=== PATIENT | female | born 1960 | race Caucasian/White ===

== ENCOUNTER 2016-07-29 14:12 | Emergency (ER) | payer OTHER ==
[~2016-07-29 14:12] MED LIST: CETIRIZINE HCL10 MG PO; DILANTIN100 MG PO; GLIMEPIRIDE4 MG PO; LEVEMIR FL100 UNIT/M SC; LISINOPRIL10 MG PO; LOVASTATIN40 MG PO; METFORMIN HCL500 MG PO; NEURONTIN100 MG PO; PERCOCET1 TA1 PO; PROTONIX40 MG PO; RISPERDAL1 MG PO; VENLAFAXINE H37.5 M1 PO
--- NOTE | 2016-07-29 15:12 | ED CLINICAL REPORT ---
Clinical Report - Physicians/Mid Levels [facility] [address] [place] [address] 07/29/2016 14:14 Patient: ES POSADA Time Seen: 1438; upon arrival, initial patient contact, initial documentation, patient care assumed. Arrived- By private vehicle. Historian- patient and daughter. HISTORY OF PRESENT ILLNESS Chief Complaint: TENDER AREA. This started about 1 1/2 weeks and is still present and worsening. It is described as painful. It has been located on the vulva. A cause has been identified. (states she dropped an iron bed frame on her vagina). Similar symptoms previously: None. Recent medical care: Not recently seen/assessed. REVIEW OF SYSTEMS No fever, abdominal pain or difficulty with urination. All systems otherwise negative, except as recorded above. PAST HISTORY See nurses notes. PROBLEMS: Chest Pain of GI Origin. Leukocytosis. Hyperlipidemia. Seizure. Seizure Disorder. Diabetes Mellitus. Hypertension. --14:39 Tita Suarez R.N. ADDITIONAL SURGERIES: Cholecystectomy. Knee Surgery. Tonsillectomy. Tubal Ligation. --14:39 Tita Suarez R.N. SOCIAL HISTORY Light tobacco smoker. No alcohol use or drug use. No recent travel. Is a local resident. FAMILY HISTORY Negative. ADDITIONAL NOTES The nursing notes have been reviewed with agreement regarding the chief complaint, HPI, ROS, PMH and patient medications and allergies. PHYSICAL EXAM Vital Signs: 07/29/2016 14:35 BP: 115/58. HR: 97. RR: 18. O2 saturation: 100%. Temp: 98.3 F. Pain level now: 10/10. Have been reviewed as normal and appear to be correct. Appearance: Alert. Oriented X3. No acute distress. (pt very dirty and unkept, feet completely black from dirt and grime). Neck: Neck supple. Respiratory: No respiratory distress. Skin: Skin warm and dry. Abnormal skin color. No rash. Normal skin turgor. Single large abscess with fluctuance, pointing, drainage and cellulitis (L labia majora). Extremities: Normal external inspection. Extremities nontender. Neuro: Oriented X 3. No motor deficit. No sensory deficit. PROGRESS AND PROCEDURES Incision & Drainage of Abscess: The abscess is located in the bartholin's gland (L labia majora). The risks of the procedure, benefits and alternatives were explained. Consent was obtained. Local anesthesia provided using 1% lidocaine. Skin cleansed with Betadine. The abscess was incised with a #11 surgical blade. A large amount of pus was drained. Cavity was irrigated with saline and packed with gauze. Estimated blood loss: 30 mL. ( area of fluctulance already draining in at least 4 different areas, incision made in 2 spots, one directly in labia, no pus return, 2nd incision made near perineum area, large amount of pus return, probed both sites to break up inoculations, swelling immediately went down, packed with 1/4 inch iodoform gauze, pt tolerated procedure well without issues). Course of Care: concerns expressed to pt and daughter about pt's unkept appearance and her constantly grabbing at drainage, getting it on her fingers and in her long fingernails, and then touching everything else, like her face, pt instructed to trim nails back to quick, and go home and clean everything that the pus was on, pt admitted to it getting on her blankets, clothes, and other places daughter pulled me aside to [facility], informing that he mom lives in [facility], and that her feet are that dirty from not walking on any hiking trail, that is from the floor in her house, they are in the middle of moving her into apt because of her current living conditions. Patient and family counseled in person regarding the patient's stable condition and diagnosis. Differential Diagnosis: Other possible considerations: vaginal trauma, bartholin gland cyst, abscess, insect bite/sting, folliculitis, cellulitis. Above considerations are based on history and physical exam. Differential diagnosis was discussed with patient and patient's family. Disposition: Discharged home in good and improved condition (15:11). Condition: good and stable. CLINICAL IMPRESSION Single deep Bartholin's abscess with incision and drainage. INSTRUCTIONS Warnings: GENERAL WARNINGS: Return or contact your physician immediately if your condition worsens or changes unexpectedly, if not improving as expected, or if other problems arise. Specifically return if problem worsens. Prescription Medications: Keflex 500 mg: take 1 capsule orally every 6 hours for 10 days. No refill. [place] 5 mg / 325 mg tablets: take 1 orally every 6 hours as needed for pain. Dispense ten (10). No refill. Motrin 800 mg tablets: take 1 tablet orally every 8 hours as needed for pain. Dispense thirty (30). No refills. Substitution is permissible. Follow-up: Follow up with your doctor in two days as needed and for packing removal. Call for an appointment. Summary of care provided to patient and family. Understanding of the discharge instructions verbalized by patient. (Electronically signed by Shameka Cardenas A.R.N.P. 07/29/2016 15:40)
--- NOTE | 2016-07-29 15:12 | ED ORDER SUMMARY ---
..... Patient: ES POSADA OrderSheet [facility] VisitID: [id number] [address] [place] [address] 55y, F Registration Date/Time: 07/29/2016 ORDER SHEET Weight: 61.2 kg (stated) Allergies: Penicillins, Sulfa Antibiotics, Tylenol-hives GENERAL ORDERS: MEDICATION ORDERS: Ancef IM 1 gm (NOW) (15:10 07/29/2016 Kelleys A.R.N.P.) (Ack 15:29 Elias R.N.) (17:23 Therese R.N.) IV FLUIDS: ORDER SHEET NOTES: [Electronically signed by Shameka CardenasR.N.P. (15:40 07/29/2016)] [Electronically signed by Tita Suarez R.N. (17:29 07/29/2016)] [Electronically locked/signed by Tita Suarez R.N. (17:29 07/29/2016)]
--- NOTE | 2016-07-29 15:12 | ED NURSING NOTES ---
Clinical Report - Nurses [facility] [address] [place] [address] 07/29/2016 14:14 Patient: ES POSADA TRIAGE Triage time 14:35 Jul 29 2016. Acuity: LEVEL 3. 14:41 07/29/16. SEPSIS SCREEN: Sepsis Screen. Negative (no infection suspected/documented). BRIAN COMA SCORE: [place] Coma Scale: 15- eyes open spontaneously (4); best verbal response- oriented x 4 (5); best motor response- obeys commands (6). --14:41 Tita Suarez R.N. 14:35 07/29/16. BP: 115/58 (regular adult cuff) taken on the left arm, while lying. HR: 97. RR: 18 (regular). O2 saturation: 100% on room air. Temp: 98.3 F (oral). Pain level now: 02/02. --14:41 Tita Suarez R.N. Weight: 61.2 kg stated. Height/Length: 62 inches Per Patient. BMI: 24.7. --14:37 Tita Suarez R.N. Medications Allergy pill. Glimepiride Oral (Tablet 2 mg) 1 tablet, BID , last dose . Lisinopril Oral 20 mg, 1/2 tab day . Lovastatin Oral (Tablet 40 mg) 1 tablet, daily. MetFORMIN HCl Oral 1000mg , 2x a day. OxyCODONE HCl Oral 5 mg, 2x a day. Phenytoin Oral 100 mg, 2 in am, 3 in HS . Venlafaxine HCl Oral 75 mg, 3x a day. --14:38 Tita Suarez R.N. Allergies Penicillins. Sulfa Antibiotics. Tylenol-hives . --14:38 Tita Suarez R.N. History Arrived by private vehicle. Historian: patient and family. Accompanied by family. This occurred (bed frame fell on patient, patient has an area of concern next to rectum on left side). Mechanism of injury: a single blow (bed frame). She has had numbness, tingling, and trouble walking. Treatment PRESS WASHER: Ice and (aleve). PAST MEDICAL HX: Diabetes mellitus. Tetanus status: unknown. The patient is post-menopausal. SOCIAL HX: Current every day light tobacco smoker- less than 1/2 a pack per day. No alcohol use or drug use. No infectious disease exposure. ABUSE ASSESSMENT: No report of abuse. --14:41 Tita Suarez R.N. PROBLEMS: Chest Pain of GI Origin. Leukocytosis. Hyperlipidemia. Seizure. Seizure Disorder. Diabetes Mellitus. Hypertension. --14:39 Tita Suarez R.N. ADDITIONAL SURGERIES: Cholecystectomy. Knee Surgery. Tonsillectomy. Tubal Ligation. --14:39 Tita Suarez R.N. Interventions ID band on patient. To treatment room. --14:41 Tita Suarez R.N. PHYSICAL ASSESSMENT Ambulatory to room. GENERAL / NEURO / PSYCH: Oriented X 4. Alert. EXTREMITIES: Capillary refill is less than 2 seconds in the extremities. Extremity pulses are within normal limits. Extremities exhibit normal ROM. SKIN: Skin is warm. ( Patient has redness and swelling left lateral to vagina). --14:43 Tita Suarez R.N. NURSING PROGRESS NOTES The plan of care for this patient has been created. Patient gowned. Reassurance given. Two patient identifiers checked. Call light placed in reach. Bed placed in lowest position. Brakes of bed on. Patient ready for evaluation- chart flagged and SALES AND MARKETING ASSISTANT notified. --14:43 Tita Suarez R.N. ( Physician in room to take care of infection area). --14:43 Tita Suarez R.N. late entry - 14:24 07/29/16. ( Assisted with drainage of wound). --17:24 Tita Suarez R.N. 15:20 07/29/2016 Ancef (CeFAZolin Sodium) IM 1 gm given. Given in the right gluteus abhinav. Allergies verified and confirmed 5 rights. --17:23 Tita Suarez R.N. 15:20 07/29/16. BP: 148/60 (regular adult cuff) taken on the right arm, while standing. HR: 90. RR: 16. O2 saturation: 92% on room air. Temp: 97.8 F (oral). Pain level now: 09/02. --17:25 Tita Suarez R.N. DISPOSITION / DISCHARGE Departure time: 15:27 Jul 29 2016. Condition at departure: improved. No learning barriers present. Discharge instructions provided and reviewed with the patient. Reviewed medication(s) side effects, precautions and dosing information. Prescription(s) given to the patient. Patient verbalized understanding. Written instructions provided in Lao. The patient was discharged by the nurse practitioner. She was discharged home and accompanied by family. She left the Emergency Department ambulatory and via private vehicle. Family member driving. ( Patient has no further questions, she was given pad and panties with paper pants to go home in, her clothes were all covered with wound drainage and blood.). --17:27 Tita Suarez R.N. Locked/Released at 07/29/2016 17:29 by Tita Suarez R.N.
--- NOTE | 2016-07-29 15:12 | ED NURSING NOTES ---
Clinical Report - Nurses [facility] [address] [place] [address] 07/29/2016 14:14 Patient: ES POSADA TRIAGE Triage time 14:35 Jul 29 2016. Acuity: LEVEL 3. 14:41 07/29/16. SEPSIS SCREEN: Sepsis Screen. Negative (no infection suspected/documented). BRIAN COMA SCORE: [place] Coma Scale: 15- eyes open spontaneously (4); best verbal response- oriented x 4 (5); best motor response- obeys commands (6). --14:41 Tita Suarez R.N. 14:35 07/29/16. BP: 115/58 (regular adult cuff) taken on the left arm, while lying. HR: 97. RR: 18 (regular). O2 saturation: 100% on room air. Temp: 98.3 F (oral). Pain level now: 02/02. --14:41 Tita Suarez R.N. Weight: 61.2 kg stated. Height/Length: 62 inches Per Patient. BMI: 24.7. --14:37 Tita Suarez R.N. Medications Allergy pill. Glimepiride Oral (Tablet 2 mg) 1 tablet, BID , last dose . Lisinopril Oral 20 mg, 1/2 tab day . Lovastatin Oral (Tablet 40 mg) 1 tablet, daily. MetFORMIN HCl Oral 1000mg , 2x a day. OxyCODONE HCl Oral 5 mg, 2x a day. Phenytoin Oral 100 mg, 2 in am, 3 in HS . Venlafaxine HCl Oral 75 mg, 3x a day. --14:38 Tita Suarez R.N. Allergies Penicillins. Sulfa Antibiotics. Tylenol-hives . --14:38 Tita Suarez R.N. History Arrived by private vehicle. Historian: patient and family. Accompanied by family. This occurred (bed frame fell on patient, patient has an area of concern next to rectum on left side). Mechanism of injury: a single blow (bed frame). She has had numbness, tingling, and trouble walking. Treatment PAYROLL AND BENEFITS SPECIALIST: Ice and (aleve). PAST MEDICAL HX: Diabetes mellitus. Tetanus status: unknown. The patient is post-menopausal. SOCIAL HX: Current every day light tobacco smoker- less than 1/2 a pack per day. No alcohol use or drug use. No infectious disease exposure. ABUSE ASSESSMENT: No report of abuse. --14:41 Tita Suarez R.N. PROBLEMS: Chest Pain of GI Origin. Leukocytosis. Hyperlipidemia. Seizure. Seizure Disorder. Diabetes Mellitus. Hypertension. --14:39 Tita Suarez R.N. ADDITIONAL SURGERIES: Cholecystectomy. Knee Surgery. Tonsillectomy. Tubal Ligation. --14:39 Tita Suarez R.N. Interventions ID band on patient. To treatment room. --14:41 Tita Suarez R.N. PHYSICAL ASSESSMENT Ambulatory to room. GENERAL / NEURO / PSYCH: Oriented X 4. Alert. EXTREMITIES: Capillary refill is less than 2 seconds in the extremities. Extremity pulses are within normal limits. Extremities exhibit normal ROM. SKIN: Skin is warm. ( Patient has redness and swelling left lateral to vagina). --14:43 Tita Suarez R.N. NURSING PROGRESS NOTES The plan of care for this patient has been created. Patient gowned. Reassurance given. Two patient identifiers checked. Call light placed in reach. Bed placed in lowest position. Brakes of bed on. Patient ready for evaluation- chart flagged and TAFFY PULLER notified. --14:43 Tita Suarez R.N. ( Physician in room to take care of infection area). --14:43 Tita Suarez R.N. late entry - 14:24 07/29/16. ( Assisted with drainage of wound). --17:24 Tita Suarez R.N. 15:20 07/29/2016 Ancef (CeFAZolin Sodium) IM 1 gm given. Given in the right gluteus abhinav. Allergies verified and confirmed 5 rights. --17:23 Tita Suarez R.N. 15:20 07/29/16. BP: 148/60 (regular adult cuff) taken on the right arm, while standing. HR: 90. RR: 16. O2 saturation: 92% on room air. Temp: 97.8 F (oral). Pain level now: 09/02. --17:25 Tita Suarez R.N. DISPOSITION / DISCHARGE Departure time: 15:27 Jul 29 2016. Condition at departure: improved. No learning barriers present. Discharge instructions provided and reviewed with the patient. Reviewed medication(s) side effects, precautions and dosing information. Prescription(s) given to the patient. Patient verbalized understanding. Written instructions provided in Swedish. The patient was discharged by the nurse practitioner. She was discharged home and accompanied by family. She left the Emergency Department ambulatory and via private vehicle. Family member driving. ( Patient has no further questions, she was given pad and panties with paper pants to go home in, her clothes were all covered with wound drainage and blood.). --17:27 Tita Suarez R.N. Locked/Released at 07/29/2016 17:29 by Tita Suarez R.N.
--- NOTE | 2016-07-29 15:12 | ED ORDER SUMMARY ---
..... Patient: ES POSADA OrderSheet [facility] VisitID: [id number] [address] [place] [address] 55y, F Registration Date/Time: 07/29/2016 ORDER SHEET Weight: 61.2 kg (stated) Allergies: Penicillins, Sulfa Antibiotics, Tylenol-hives GENERAL ORDERS: MEDICATION ORDERS: Ancef IM 1 gm (NOW) (15:10 07/29/2016 Kelleys A.R.N.P.) (Ack 15:29 Elias R.N.) (17:23 Therese R.N.) IV FLUIDS: ORDER SHEET NOTES: [Electronically signed by Shameka CardenasR.N.P. (15:40 07/29/2016)] [Electronically signed by Tita Suarez R.N. (17:29 07/29/2016)] [Electronically locked/signed by Tita Suarez R.N. (17:29 07/29/2016)]
--- NOTE | 2016-07-29 15:12 | ED CLINICAL REPORT ---
Clinical Report - Physicians/Mid Levels [facility] [address] [place] [address] 07/29/2016 14:14 Patient: ES POSADA Time Seen: 1438; upon arrival, initial patient contact, initial documentation, patient care assumed. Arrived- By private vehicle. Historian- patient and daughter. HISTORY OF PRESENT ILLNESS Chief Complaint: TENDER AREA. This started about 1 1/2 weeks and is still present and worsening. It is described as painful. It has been located on the vulva. A cause has been identified. (states she dropped an iron bed frame on her vagina). Similar symptoms previously: None. Recent medical care: Not recently seen/assessed. REVIEW OF SYSTEMS No fever, abdominal pain or difficulty with urination. All systems otherwise negative, except as recorded above. PAST HISTORY See nurses notes. PROBLEMS: Chest Pain of GI Origin. Leukocytosis. Hyperlipidemia. Seizure. Seizure Disorder. Diabetes Mellitus. Hypertension. --14:39 Tita Suarez R.N. ADDITIONAL SURGERIES: Cholecystectomy. Knee Surgery. Tonsillectomy. Tubal Ligation. --14:39 Tita Suarez R.N. SOCIAL HISTORY Light tobacco smoker. No alcohol use or drug use. No recent travel. Is a local resident. FAMILY HISTORY Negative. ADDITIONAL NOTES The nursing notes have been reviewed with agreement regarding the chief complaint, HPI, ROS, PMH and patient medications and allergies. PHYSICAL EXAM Vital Signs: 07/29/2016 14:35 BP: 115/58. HR: 97. RR: 18. O2 saturation: 100%. Temp: 98.3 F. Pain level now: 10/10. Have been reviewed as normal and appear to be correct. Appearance: Alert. Oriented X3. No acute distress. (pt very dirty and unkept, feet completely black from dirt and grime). Neck: Neck supple. Respiratory: No respiratory distress. Skin: Skin warm and dry. Abnormal skin color. No rash. Normal skin turgor. Single large abscess with fluctuance, pointing, drainage and cellulitis (L labia majora). Extremities: Normal external inspection. Extremities nontender. Neuro: Oriented X 3. No motor deficit. No sensory deficit. PROGRESS AND PROCEDURES Incision & Drainage of Abscess: The abscess is located in the bartholin's gland (L labia majora). The risks of the procedure, benefits and alternatives were explained. Consent was obtained. Local anesthesia provided using 1% lidocaine. Skin cleansed with Betadine. The abscess was incised with a #11 surgical blade. A large amount of pus was drained. Cavity was irrigated with saline and packed with gauze. Estimated blood loss: 30 mL. ( area of fluctulance already draining in at least 4 different areas, incision made in 2 spots, one directly in labia, no pus return, 2nd incision made near perineum area, large amount of pus return, probed both sites to break up inoculations, swelling immediately went down, packed with 1/4 inch iodoform gauze, pt tolerated procedure well without issues). Course of Care: concerns expressed to pt and daughter about pt's unkept appearance and her constantly grabbing at drainage, getting it on her fingers and in her long fingernails, and then touching everything else, like her face, pt instructed to trim nails back to quick, and go home and clean everything that the pus was on, pt admitted to it getting on her blankets, clothes, and other places daughter pulled me aside to [facility], informing that he mom lives in [facility], and that her feet are that dirty from not walking on any hiking trail, that is from the floor in her house, they are in the middle of moving her into apt because of her current living conditions. Patient and family counseled in person regarding the patient's stable condition and diagnosis. Differential Diagnosis: Other possible considerations: vaginal trauma, bartholin gland cyst, abscess, insect bite/sting, folliculitis, cellulitis. Above considerations are based on history and physical exam. Differential diagnosis was discussed with patient and patient's family. Disposition: Discharged home in good and improved condition (15:11). Condition: good and stable. CLINICAL IMPRESSION Single deep Bartholin's abscess with incision and drainage. INSTRUCTIONS Warnings: GENERAL WARNINGS: Return or contact your physician immediately if your condition worsens or changes unexpectedly, if not improving as expected, or if other problems arise. Specifically return if problem worsens. Prescription Medications: Keflex 500 mg: take 1 capsule orally every 6 hours for 10 days. No refill. [place] 5 mg / 325 mg tablets: take 1 orally every 6 hours as needed for pain. Dispense ten (10). No refill. Motrin 800 mg tablets: take 1 tablet orally every 8 hours as needed for pain. Dispense thirty (30). No refills. Substitution is permissible. Follow-up: Follow up with your doctor in two days as needed and for packing removal. Call for an appointment. Summary of care provided to patient and family. Understanding of the discharge instructions verbalized by patient. (Electronically signed by Shameka Cardenas A.R.N.P. 07/29/2016 15:40)
--- NOTE | 2016-07-29 17:29 | ED MAR SUMMARY ---
..... Medication Administration Record [facility] [address] [place] [address] Patient: ES POSADA Visit ID: [id number] 55y, F Weight: 61.2 kg Height/Length: 62 in BMI: 24.7 ALLERGIES: Penicillins, Sulfa Antibiotics, Tylenol-hives Given 15:20 07/29/2016 Tita Suarez R.N. Medication Administered: ANCEF [IM] (CEFAZOLIN SODIUM), Dose: 1 gm IM. Medication Ordered: Ancef IM 1 gm (NOW).
--- NOTE | 2016-07-29 17:29 | ED MAR SUMMARY ---
..... Medication Administration Record [facility] [address] [place] [address] Patient: ES POSADA Visit ID: [id number] 55y, F Weight: 61.2 kg Height/Length: 62 in BMI: 24.7 ALLERGIES: Penicillins, Sulfa Antibiotics, Tylenol-hives Given 15:20 07/29/2016 Tita Suarez R.N. Medication Administered: ANCEF [IM] (CEFAZOLIN SODIUM), Dose: 1 gm IM. Medication Ordered: Ancef IM 1 gm (NOW).
--- NOTE | 2016-07-29 17:29 | ED MED RECONCILIATION SUMMARY ---
Patient: ES POSADA Medication Reconciliation Report [facility] VisitID: [id number] [place] [address] 55y, F Registration Date/Time: 07/29/2016 Weight: 61.2 kg Height/Length: 62 in. BMI: 24.7 ALLERGIES: Penicillins, Sulfa Antibiotics, Tylenol-hives The patient's Home Medications are listed below: THE FOLLOWING MEDICATIONS NEED TO BE RECONCILED: Allergy pill Glimepiride Oral (2 mg) 1 tablet, BID , last dose: Lisinopril Oral 20 mg, 1/2 tab day Lovastatin Oral (40 mg) 1 tablet, daily MetFORMIN HCl Oral 1000mg , 2x a day OxyCODONE HCl Oral 5 mg, 2x a day Phenytoin Oral 100 mg, 2 in am, 3 in HS Venlafaxine HCl Oral 75 mg, 3x a day The source(s) of the original Home Medication information: Not obtained. The following Medications were given to the patient in the Emergency Department: Ancef [IM] IM 1 gm, administered: 07/29/2016 3:20:00 PM The following Medications were prescribed to the patient: Keflex 500 mg: take 1 capsule orally every 6 hours for 10 days. No refill. -- Shameka Cardenas A.R.N.P. [place] 5 mg / 325 mg tablets: take 1 orally every 6 hours as needed for pain. Dispense ten (10). No refill. -- Shameka Cardenas A.R.N.P. Motrin 800 mg tablets: take 1 tablet orally every 8 hours as needed for pain. Dispense thirty (30). No refills. Substitution is permissible. -- Shameka Cardenas A.R.N.P.
--- NOTE | 2016-07-29 17:29 | ED MED RECONCILIATION SUMMARY ---
Patient: ES POSADA Medication Reconciliation Report [facility] VisitID: [id number] [place] [address] 55y, F Registration Date/Time: 07/29/2016 Weight: 61.2 kg Height/Length: 62 in. BMI: 24.7 ALLERGIES: Penicillins, Sulfa Antibiotics, Tylenol-hives The patient's Home Medications are listed below: THE FOLLOWING MEDICATIONS NEED TO BE RECONCILED: Allergy pill Glimepiride Oral (2 mg) 1 tablet, BID , last dose: Lisinopril Oral 20 mg, 1/2 tab day Lovastatin Oral (40 mg) 1 tablet, daily MetFORMIN HCl Oral 1000mg , 2x a day OxyCODONE HCl Oral 5 mg, 2x a day Phenytoin Oral 100 mg, 2 in am, 3 in HS Venlafaxine HCl Oral 75 mg, 3x a day The source(s) of the original Home Medication information: Not obtained. The following Medications were given to the patient in the Emergency Department: Ancef [IM] IM 1 gm, administered: 07/29/2016 3:20:00 PM The following Medications were prescribed to the patient: Keflex 500 mg: take 1 capsule orally every 6 hours for 10 days. No refill. -- Shameka Cardenas A.R.N.P. [place] 5 mg / 325 mg tablets: take 1 orally every 6 hours as needed for pain. Dispense ten (10). No refill. -- Shameka Cardenas A.R.N.P. Motrin 800 mg tablets: take 1 tablet orally every 8 hours as needed for pain. Dispense thirty (30). No refills. Substitution is permissible. -- Shameka Cardenas A.R.N.P.
--- NOTE | 2016-07-29 17:29 | ED DISCHARGE INSTRUCTIONS ---
Patient: ES POSADA General Instructions [facility] VisitID: [id number] [place] [address] 55y, F Registration Date/Time: 07/29/2016 Single deep Bartholin's abscess with incision and drainage. INSTRUCTIONS Warnings: GENERAL WARNINGS: Return or contact your physician immediately if your condition worsens or changes unexpectedly, if not improving as expected, or if other problems arise. Specifically return if problem worsens. Prescription Medications: Keflex 500 mg: take 1 capsule orally every 6 hours for 10 days. No refill. Dingle 5 mg / 325 mg tablets: take 1 orally every 6 hours as needed for pain. Dispense ten (10). No refill. Motrin 800 mg tablets: take 1 tablet orally every 8 hours as needed for pain. Dispense thirty (30). No refills. Substitution is permissible. Follow-up: Follow up with your doctor in two days as needed and for packing removal. Call for an appointment. Summary of care provided to patient and family. Understanding of the discharge instructions verbalized by patient. ADDITIONAL INFORMATION Abscess [Incision & Drainage] An abscess (sometimes called a boil) occurs when bacteria get trapped under the skin and begin to grow. Pus forms inside the abscess as the body responds to the bacteria. An abscess can occur with an insect bite, ingrown hair, blocked oil gland, pimple, cyst, or puncture wound. Treatment of your abscess has required an incision to drain the pus. If the abscess pocket was large, a gauze packing may have been inserted. This will need to be removed and possibly replaced on your next visit. Antibiotics are not required in the treatment of a simple abscess, unless the infection is spreading into the skin around the wound (known as cellulitis). Healing of the wound will take about one to two weeks depending on the size of the abscess. Healthy tissue will grow from the bottom and sides of the opening until it seals over. Home Care: The wound may drain for the first two days. Cover the wound with a clean dry dressing. If the dressing becomes soaked with blood or pus, change it. If a gauze packing was placed inside the abscess cavity, you may be advised to remove it yourself. You may do this in the shower. Once the packing is removed, you should wash the area in the shower or bath 3 to 4 times a day, until the skin opening has closed. If you were prescribed antibiotics, take them as directed until they are all gone. You may use acetaminophen (Tylenol) or ibuprofen (Motrin, Advil) to control pain, unless another pain medicine was prescribed. [ NOTE: If you have liver disease or ever had a stomach ulcer, talk with your doctor before using these medicines.] Follow Up with your doctor as advised by our staff. If a gauze packing was inserted in your wound, it should be removed in 1-2 days. Check your wound every day for the signs of worsening infection listed below. Get Prompt Medical Attention if any of the following occur: Increasing redness or swelling Red streaks in the skin leading away from the wound Increasing local pain or swelling Continued pus draining from the wound two days after treatment Fever of 100.4F (38C) or higher, or as directed by your healthcare provider Cellulitis You have an infection of the skin known as cellulitis. This usually starts with a scrape, cut, insect bite, blister or other opening in the skin which becomes infected. This is a serious condition. It must be watched closely to be sure the infection is not spreading. With antibiotic treatment, the size of the red area will gradually shrink in size until the skin returns to normal. This will take 7-10 days. The red area should never increase in size once the antibiotic medicine has been started. Occasionally, an infection will be resistant to one antibiotic and another one will have to be used. Home Care: 1) Limit the use of the affected part, since excess movement can cause the infection to spread. 2) If the infection is on your leg, walk as little as possible during the first few days of the treatment. Keep your leg elevated while sitting. This will reduce swelling. 3) Take all of the antibiotic medicine exactly as directed until it is gone. Be careful not to miss any doses, especially during the first seven days. Follow Up with your doctor or this facility as directed. Check the infected area daily for the warning signs listed below. Get Prompt Medical Attention if any of the following occur: -- Spreading area of redness -- Increasing swelling or pain -- Appearance of pus or drainage -- Fever over 100.4 F (38.0 C) oral, or over 101.4 F (38.6 C) rectal, after two days on antibiotics Bartholin's Cyst [I&D] The Bartholin's glands are very small glands found inside the labia (vaginal lips). The glands produce fluid to help keep the vagina moist. When the opening of a Bartholins gland becomes blocked, the gland will swell and form a cyst. A cyst feels like a firm lump within the labia, from to 2 in size. It is usually not painful, unless it becomes infected. There are two common methods for draining the fluid and preventing return of the cyst: -- A small rubber tube (Word catheter) may have been inserted into the cyst. This will probably fall out on its own, or can be removed by your doctor in 2-3 weeks. -- A stitch may be used to hold the incision open and prevent it from healing closed too soon. Most infections of Bartholins cysts are due to bacteria that are normally present in the vagina. But, sometimes a sexually transmitted disease (STD) such as Gonorrhea can cause the infection. A culture test of the fluid can determine this. Home Care: 1) Sit in a tub filled with about 6 inches of very hot water. Allow the water to run in order to keep it hot for a total of 10-15 minutes. Repeat this three times a day until pain is relieved. 2) You may use acetaminophen (Tylenol) or ibuprofen (Motrin, Advil) to control pain, unless another medicine was prescribed. [ NOTE : If you have chronic liver or kidney disease or ever had a stomach ulcer or GI bleeding, talk with your doctor before using these medicines.] 3) Avoid sexual intercourse until all of the swelling and pain is gone, any tubes or stitches have been removed, and you have finished any antibiotics that were given. 4) If the cause of your infection is found to be due to an STD, it will be necessary for your sexual partner to be treated. He should contact his own doctor or clinic, or go to the local Public Health Department. Follow Up with your doctor or as advised by our staff. If a culture test was taken, you may call in two days for the result. If a rubber catheter was inserted and it falls out before your appointment to have it removed, call us or your doctor for advice. Get Prompt Medical Attention if any of the following occur: -- Increasing redness, pain or swelling of the labia -- Fever over 100.5' F (38.0' C) after two days of treatment -- Increasing pain in the lower abdomen -- New rash or joint pain Staph Infection (MRSA) "Staph" is the short name for the common bacteria called "staphylococcus aureus". Staph bacteria are often present on the skin without causing an infection. If it gets under the skin an infection occurs. This causes redness, tenderness, swelling and sometimes fluid drainage. MRSA stands for "Methicillin-Resistant Staph Aureus". Unlike a common staph infection, MRSA bacteria are resistant to the usual antibiotics and harder to treat. Also, MRSA is more toxic than common staph bacteria. It can spread quickly throughout the body and cause a life-threatening illness. MRSA is spread to others by direct physical contact with the bacteria. MRSA can also be transmitted from items contaminated by a person who has the bacteria, such as bandages, towels, bed sheets, or sports equipment. It is not spread through the air. Once you have a MRSA skin infection, you are at risk of having it recur in the future. If MRSA infection is suspected, the doctor may take a wound culture to confirm the diagnosis. Any abscess will be drained. One or sometimes two antibiotics that work against MRSA will be prescribed. Home Care: 1) Take any antibiotics prescribed exactly as directed until they are gone. 2) Follow the same washing procedures as outlined for Household Members below. 3) Keep draining wounds covered with clean, dry bandages. Change dressings as they become soiled. 4) You and those in contact with you should wash their hands frequently with soap and warm water or use an alcohol-based hand maintainability engineer. Do this after each time you change the bandage or touch the wound. 5) Avoid sharing personal items such as towels, washcloths, razors, clothing, or uniforms. Wash soiled sheets, towels or clothes in hot water with laundry detergent. Use an automatic clothes dryer set on high to kill any remaining bacteria. 6) Remove any artificial nails and nail croatian. 7) If you use a gym, wipe down equipment before and after each use. Treatment Of Household Members If you have been diagnosed with possible MRSA infection, those living with you are at higher risk of carrying the bacteria on their skin or in their nose, even if there is no sign of infection. Bacteria must be removed from the skin of all household members (including you) at the same time, so that it is not passed back and forth. Advise them to remove the bacteria as follows: Wash your whole body (scalp to toes) daily for five days with Hibiclens (chlorhexidine). Scrub fingernails with a brush for one minute twice a day. If any skin infections are present (boils, abscess, infected cut) these must be treated by a doctor. Washing alone will not treat a MRSA infection. Clean counter tops and children's toys; do not share personal items such as toothbrush and razors. It is okay to share glasses, plates, utensils. If antibiotic ointment was prescribed use it as directed. Follow Up with your doctor or as advised by our staff. If a wound culture was taken, call as directed in two days to obtain the results. If the culture result is positive for MRSA, tell medical personnel in the future that you were treated for this type of infection. Get Prompt Medical Attention if any of the following occur: -- Increasing redness, swelling or pain -- Red streaks in the skin around the wound -- Weakness or dizziness -- New appearance of pus or drainage from the wound -- New fever over 100.4 F (38.0 C) Cephalexin Monohydrate Oral tablet What is this medicine? CEPHALEXIN (sef a FROY in) is a cephalosporin antibiotic. It is used to treat certain kinds of bacterial infections It will not work for colds, flu, or other viral infections. How should I use this medicine? Take this medicine by mouth with a full glass of water. Follow the directions on the prescription label. This medicine can be taken with or without food. Take your medicine at regular intervals. Do not take your medicine more often than directed. Take all of your medicine as directed even if you think you are better. Do not skip doses or stop your medicine early. Talk to your landscape horticulture instructor regarding the use of this medicine in children. While this drug may be prescribed for selected conditions, precautions do apply. What side effects may I notice from receiving this medicine? Side effects that you should report to your doctor or health personal care assistant as soon as possible: allergic reactions like skin rash, itching or hives, swelling of the face, lips, or tongue breathing problems pain or trouble passing urine redness, blistering, peeling or loosening of the skin, including inside the mouth severe or watery diarrhea unusually weak or tired yellowing of the eyes, skin Side effects that usually do not require medical attention (report to your doctor or health personal care assistant if they continue or are bothersome): gas or heartburn genital or anal irritation headache joint or muscle pain nausea, vomiting What may interact with this medicine? probenecid some other antibiotics What if I miss a dose? If you miss a dose, take it as soon as you can. If it is almost time for your next dose, take only that dose. Do not take double or extra doses. There should be at least 4 to 6 hours between doses. Where should I keep my medicine? Keep out of the reach of children. Store at room temperature between 59 and 86 degrees F (15 and 30 degrees C). Throw away any unused medicine after the expiration date. What should I tell my health care provider before I take this medicine? They need to know if you have any of these conditions: kidney disease stomach or intestine problems, especially colitis an unusual or allergic reaction to cephalexin, other cephalosporins, penicillins, other antibiotics, medicines, foods, dyes or preservatives or trying to get breast-feeding What should I watch for while using this medicine? Tell your doctor or health personal care assistant if your symptoms do not begin to improve in a few days. Do not treat diarrhea with over the counter products. Contact your doctor if you have diarrhea that lasts more than 2 days or if it is severe and watery. If you have diabetes, you may get a false-positive result for sugar in your urine. Check with your doctor or health personal care assistant. Hydrocodone Bitartrate, Acetaminophen Oral tablet What is this medicine? ACETAMINOPHEN; HYDROCODONE (a set a STEFFANY francine fen; titus droe KOE done) is a pain reliever. It is used to treat mild to moderate pain. How should I use this medicine? Take this medicine by mouth. Swallow it with a full glass of water. Follow the directions on the prescription label. If the medicine upsets your stomach, take the medicine with food or milk. Do not take more than you are told to take. Talk to your landscape horticulture instructor regarding the use of this medicine in children. This medicine is not approved for use in children. What side effects may I notice from receiving this medicine? Side effects that you should report to your doctor or health personal care assistant as soon as possible: allergic reactions like skin rash, itching or hives, swelling of the face, lips, or tongue breathing problems confusion feeling faint or lightheaded, falls stomach pain yellowing of the eyes or skin Side effects that usually do not require medical attention (report to your doctor or health personal care assistant if they continue or are bothersome): nausea, vomiting stomach upset What may interact with this medicine? alcohol antihistamines isoniazid medicines for depression, anxiety, or psychotic disturbances medicines for sleep muscle relaxants naltrexone narcotic medicines (opiates) for pain phenobarbital ritonavir tramadol What if I miss a dose? If you miss a dose, take it as soon as you can. If it is almost time for your next dose, take only that dose. Do not take double or extra doses. Where should I keep my medicine? Keep out of the reach of children. This medicine can be abused. Keep your medicine in a safe place to protect it from theft. Do not share this medicine with anyone. Selling or giving away this medicine is dangerous and against the law. Store at room temperature between 15 and 30 degrees C (59 and 86 degrees F). Protect from light. Keep container tightly closed. Throw away any unused medicine after the expiration date. Discard unused medicine and used packaging carefully. Pets and children can be harmed if they find used or lost packages. What should I tell my health care provider before I take this medicine? They need to know if you have any of these conditions: brain tumor Crohn's disease, inflammatory bowel disease, or ulcerative colitis drink more than 3 alcohol-containing drinks per day drug abuse or addiction head injury heart or circulation problems kidney disease or problems going to the bathroom liver disease lung disease, asthma, or breathing problems an unusual or allergic reaction to acetaminophen, hydrocodone, other opioid analgesics, other medicines, foods, dyes, or preservatives or trying to get breast-feeding What should I watch for while using this medicine? Tell your doctor or health personal care assistant if your pain does not go away, if it gets worse, or if you have new or a different type of pain. You may develop tolerance to the medicine. Tolerance means that you will need a higher dose of the medicine for pain relief. Tolerance is normal and is expected if you take the medicine for a long time. Do not suddenly stop taking your medicine because you may develop a severe reaction. Your body becomes used to the medicine. This does NOT mean you are addicted. Addiction is a behavior related to getting and using a drug for a non-medical reason. If you have pain, you have a medical reason to take pain medicine. Your doctor will tell you how much medicine to take. If your doctor wants you to stop the medicine, the dose will be slowly lowered over time to avoid any side effects. You may get drowsy or dizzy when you first start taking the medicine or change doses. Do not drive, use machinery, or do anything that may be dangerous until you know how the medicine affects you. Stand or sit up slowly. There are different types of narcotic medicines (opiates) for pain. If you take more than one type at the same time, you may have more side effects. Give your health care provider a list of all medicines you use. Your doctor will tell you how much medicine to take. Do not take more medicine than directed. Call emergency for help if you have problems breathing. The medicine will cause constipation. Try to have a bowel movement at least every 2 to 3 days. If you do not have a bowel movement for 3 days, call your doctor or health personal care assistant. Too much acetaminophen can be very dangerous. Do not take Tylenol (acetaminophen) or medicines that contain acetaminophen with this medicine. Many non-prescription medicines contain acetaminophen. Always read the labels carefully. Ibuprofen Oral tablet What is this medicine? IBUPROFEN (eye BYOO proe fen) is a non-steroidal anti-inflammatory drug (NSAID). It is used for dental pain, fever, headaches or migraines, osteoarthritis, rheumatoid arthritis, or painful monthly periods. It can also relieve minor aches and pains caused by a cold, flu, or sore throat. How should I use this medicine? Take this medicine by mouth with a glass of water. Follow the directions on the prescription label. Take this medicine with food if your stomach gets upset. Try to not lie down for at least 10 minutes after you take the medicine. Take your medicine at regular intervals. Do not take your medicine more often than directed. A special MedGuide will be given to you by the pharmacist with each prescription and refill. Be sure to read this information carefully each time. Talk to your landscape horticulture instructor regarding the use of this medicine in children. Special care may be needed. What side effects may I notice from receiving this medicine? Side effects that you should report to your doctor or health personal care assistant as soon as possible: allergic reactions like skin rash, itching or hives, swelling of the face, lips, or tongue black or bloody stools, blood in the urine or in vomit breathing problems changes in vision chest pain general ill feeling or flu-like symptoms nausea or vomiting redness, blistering, peeling or loosening of the skin, including inside the mouth slurred speech or weakness on one side of the body stomach pain unexplained weight gain or swelling unusually weak or tired yellowing of eyes or skin Side effects that usually do not require medical attention (report to your doctor or health personal care assistant if they continue or are bothersome): constipation or diarrhea dizziness gas or heartburn stomach upset What may interact with this medicine? Do not take this medicine with any of the following medications: cidofovir ketorolac methotrexate pemetrexed This medicine may also interact with the following medications: alcohol aspirin diuretics lithium other drugs for inflammation like prednisone warfarin What if I miss a dose? If you miss a dose, take it as soon as you can. If it is almost time for your next dose, take only that dose. Do not take double or extra doses. Where should I keep my medicine? Keep out of the reach of children. Store at room temperature between 15 and 30 degrees C (59 and 86 degrees F). Keep container tightly closed. Throw away any unused medicine after the expiration date. What should I tell my health care provider before I take this medicine? They need to know if you have any of these conditions: asthma cigarette smoker drink more than 3 alcohol containing drinks a day heart disease or circulation problems such as heart failure or leg edema (fluid retention) high blood pressure kidney disease liver disease stomach bleeding or ulcers an unusual or allergic reaction to ibuprofen, aspirin, other NSAIDS, other medicines, foods, dyes, or preservatives or trying to get breast-feeding What should I watch for while using this medicine? Tell your doctor or healthcare professional if your symptoms do not start to get better or if they get worse. This medicine does not prevent heart attack or stroke. In fact, this medicine may increase the chance of a heart attack or stroke. The chance may increase with longer use of this medicine and in people who have heart disease. If you take aspirin to prevent heart attack or stroke, talk with your doctor or health personal care assistant. Do not take other medicines that contain aspirin, ibuprofen, or naproxen with this medicine. Side effects such as stomach upset, nausea, or ulcers may be more likely to occur. Many medicines available without a prescription should not be taken with this medicine. This medicine can cause ulcers and bleeding in the stomach and intestines at any time during treatment. Ulcers and bleeding can happen without warning symptoms and can cause . To reduce your risk, do not smoke cigarettes or drink alcohol while you are taking this medicine. You may get drowsy or dizzy. Do not drive, use machinery, or do anything that needs mental alertness until you know how this medicine affects you. Do not stand or sit up quickly, especially if you are an older patient. This reduces the risk of dizzy or fainting spells. This medicine can cause you to bleed more easily. Try to avoid damage to your teeth and gums when you brush or floss your teeth. You have been given the following additional information: Abscess, Incision And Drainage Cellulitis Bartholin's Cyst (I And D) MRSA Skin Infection, Suspected Or Confirmed Cephalexin Monohydrate Oral tablet Hydrocodone Bitartrate, Acetaminophen Oral tablet Ibuprofen Oral tablet (Electronically signed by Shameka Cardenas A.R.N.P. 07/29/2016 15:40)
== END 2016-07-29 15:27 | disposition home or self-care (01) ==
LOC: ED SRH 14:12
DX: N75.1 Abscess of Bartholin's gland (principal); W20.8XXA Other cause of strike by thrown, projected or falling object, initial encounter; E11.9 Type 2 diabetes mellitus without complications; I10 Essential (primary) hypertension; E78.5 Hyperlipidemia, unspecified; Z79.84 Long term (current) use of oral hypoglycemic drugs; Z79.899 Other long term (current) drug therapy

== ENCOUNTER 2016-08-02 11:53 | Emergency (ER) | payer OTHER ==
--- NOTE | 2016-08-02 12:45 | ED CLINICAL REPORT ---
Clinical Report - Physicians/Mid Levels [facility] [address] [place] [address] 08/02/2016 11:53 [id number] Time Seen: 12:20 Aug 02 2016. Arrived- By private vehicle. Historian- patient. 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 The symptoms are described as moderate. The patient has had pelvic pain. (Patient reports some improvement, has been doing daily sitz bath, as well as taking her antibiotics. Reports drainage from the wound.). Recent medical care: The patient was seen recently by a health care provider (on the for I/D). REVIEW OF SYSTEMS No nausea or diarrhea. All systems otherwise negative, except as recorded above. PAST HISTORY Problems: Abscess. Abdominal Pain. Vomiting. Chest Pain of GI Origin. Leukocytosis. Hyperlipidemia. Seizure. Seizure Disorder. Diabetes Mellitus. Hypertension. Additional Surgeries: Cholecystectomy. Knee Surgery. Tonsillectomy. Tubal Ligation. Medications: Keflex Oral. Allergy pill. Glimepiride Oral (Tablet 2 mg) 1 tablet, BID , last dose . Lisinopril Oral 20 mg, 1/2 tab day . Lovastatin Oral (Tablet 40 mg) 1 tablet, daily. MetFORMIN HCl Oral 1000mg , 2x a day. Phenytoin Oral 100 mg, 2 in am, 3 in HS . Venlafaxine HCl Oral 75 mg, 3x a day. Allergies: Penicillins. Sulfa Antibiotics. Tylenol-hives . ADDITIONAL NOTES The nursing notes have been reviewed. PHYSICAL EXAM Vital Signs: 08/02/2016 12:24 BP: 114/58. HR: 95. RR: 20. O2 saturation: 94%. Temp: 97.5 F. Pain level now: 7/10. Appearance: Alert. ENT: Pharynx normal. Neck: Neck supple. CVS: Heart sounds normal. Abdomen: Soft and nontender. Bowel sounds normal. No abdominal tenderness. : (external left exam with tech chaparone: 2-3 area of open drainage, purulent, no erythema of underlying skin, hair bunches out of the area of opening of abscess, purulent with no surrouding skin erythema.). Skin: Skin warm. PROGRESS AND PROCEDURES Course of Care: External exam was completed, with ingrown hair in multiple area and areas of incision coinciding to such, with purulent drainage, but no visible packing. Areas were explored, with digits as well as manual palpation, and material expressed. Patient tolerated this well. She is stable. Afebrile, to continue using of Keflex. No new palpable abscess or mass. 08/02/2016 12:53 BP: 111/53. HR: 84. RR: 20. O2 saturation: 93%. Pain level now: 5/10. Patient is stable. Patient/family counseled. Disposition: Discharged. CLINICAL IMPRESSION Multiple abscesses (follow up visit). INSTRUCTIONS (warm packs/ sitz bath/ continue KEFLEX follow up with PCP or MARKETING TEACHER in 3-4 days). Warnings: Further evaluation is necessary. (Electronically signed by Qing Lopez P.A.-C 08/02/2016 13:07)
--- NOTE | 2016-08-02 12:45 | ED NURSING NOTES ---
Clinical Report - Nurses [facility] [address] [place] [address] 08/02/2016 11:53 Patient: ES POSADA TRIAGE Triage time 12:Aug 02 2016. Acuity: LEVEL 4. Chief Complaint: BOIL. Alert. No acute distress. BRIAN COMA SCORE: [place] Coma Scale: 15- eyes open spontaneously (4); best verbal response- oriented x 4 (5); best motor response- obeys commands (6). --12:29 Irma Sheldon R.N. 12:24 08/02/16. BP: 114/58. HR: 95. RR: 20. O2 saturation: 94%. Temp: 97.5 F. Pain level now: 11/02. --12:29 Irma Sheldon R.N. Weight: 61.2 kg stated. Height/Length: 62 inches Per Patient. BMI: 24.7. --12:27 Irma Sheldon R.N. Medications Allergy pill. Glimepiride Oral (Tablet 2 mg) 1 tablet, BID , last dose . Lisinopril Oral 20 mg, 1/2 tab day . Lovastatin Oral (Tablet 40 mg) 1 tablet, daily. MetFORMIN HCl Oral 1000mg , 2x a day. Phenytoin Oral 100 mg, 2 in am, 3 in HS . Venlafaxine HCl Oral 75 mg, 3x a day. --12:26 Irma Sheldon R.N. Keflex Oral. --12:26 Irma Sheldon R.N. Allergies Penicillins. Sulfa Antibiotics. Tylenol-hives . --12:26 Irma Sheldon R.N. History Arrived by private vehicle. Historian: patient. Accompanied by family. Onset. (about 10 days ago). It is described as painful. 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 PAST MEDICAL HX: Immunizations: status is unknown. Last normal menstrual period- 2007. SOCIAL HX: Current every day heavy tobacco smoker (cigarette)- less than 1 pack per day. No alcohol use or drug use. No infectious disease exposure. SELF HARM ASSESSMENT: A self harm assessment was performed. The patient answered "no" to the question "Do you have thoughts of harming or killing yourself?". FALL RISK ASSESSMENT: Fall risk assessment completed. No fall risk identified. NUTRITIONAL RISK ASSESSMENT: The nutritional risk assessment revealed no deficiencies. FUNCTIONAL ASSESSMENT: Functional assessment: no impairments noted. LEARNING NEEDS ASSESSMENT: The learning needs assessment revealed no barriers. ABUSE ASSESSMENT: Abuse assessment: The patient was asked "Do you feel safe in your home?". SKIN INTEGRITY ASSESSMENT: Skin integrity risk assessment completed. No skin integrity risk identified. --12:29 Irma Sheldon R.N. PROBLEMS: Abscess. Abdominal Pain. Vomiting. Chest Pain of GI Origin. Leukocytosis. Hyperlipidemia. Seizure. Seizure Disorder. Diabetes Mellitus. Hypertension. --12: Irma Sheldon R.N. ADDITIONAL SURGERIES: Cholecystectomy. Knee Surgery. Tonsillectomy. Tubal Ligation. --12:26 Irma Sheldon R.N. Assessment The patient states feels better. --12:29 Irma Sheldon R.N. Interventions ID band on patient. To room. --12:29 Irma Sheldon R.N. PHYSICAL ASSESSMENT GENERAL / NEURO / PSYCH: Alert. Appears in pain. Oriented X 4. HEENT: Mucous membranes are pink. RESPIRATORY: Respirations not labored. CVS: Capillary refill less than 2 seconds. GI / : Abdomen nontender. SKIN: Skin is warm and dry. --12:29 Irma Sheldon R.N. NURSING PROGRESS NOTES Patient gowned. Head of bed elevated. Two patient identifiers checked. Call light placed in reach. Side rails up x 1. Bed placed in lowest position. Brakes of bed on. --12:29 Irma Sheldon R.N. ( sanitary pad provided to patient.). --12:53 Irma Sheldon R.N. DISPOSITION / DISCHARGE Departure time: 12:54 Apr 2016. Condition at departure: improved. The following issues were addressed: pain control and comfort issues. No learning barriers present. Discharge instructions provided and reviewed with the patient. Reviewed wound care instructions. Reviewed referral to a primary care physician. Patient verbalized understanding. Written instructions provided in Cameroonian. The patient was discharged home and accompanied by family. She left the Emergency Department ambulatory and via private vehicle. Family member driving. FALL RISK ASSESSMENT: Fall risk assessment completed. No fall risk identified. --12:54 Irma Sheldon R.N. 12:53 08/02/16. BP: 111/53. HR: 84. RR: 20. O2 saturation: 93%. Pain level now: 09/02. --12:54 Irma Sheldon R.N. Locked/Released at 08/02/2016 18:00 by Irma Sheldon R.N.
--- NOTE | 2016-08-02 12:45 | ED NURSING NOTES ---
Clinical Report - Nurses [facility] [address] [place] [address] 08/02/2016 11:53 Patient: ES POSADA TRIAGE Triage time 12:Aug 02 2016. Acuity: LEVEL 4. Chief Complaint: BOIL. Alert. No acute distress. BRIAN COMA SCORE: [place] Coma Scale: 15- eyes open spontaneously (4); best verbal response- oriented x 4 (5); best motor response- obeys commands (6). --12:29 Irma Sheldon R.N. 12:24 08/02/16. BP: 114/58. HR: 95. RR: 20. O2 saturation: 94%. Temp: 97.5 F. Pain level now: 11/02. --12:29 Irma Sheldon R.N. Weight: 61.2 kg stated. Height/Length: 62 inches Per Patient. BMI: 24.7. --12:27 Irma Sheldon R.N. Medications Allergy pill. Glimepiride Oral (Tablet 2 mg) 1 tablet, BID , last dose . Lisinopril Oral 20 mg, 1/2 tab day . Lovastatin Oral (Tablet 40 mg) 1 tablet, daily. MetFORMIN HCl Oral 1000mg , 2x a day. Phenytoin Oral 100 mg, 2 in am, 3 in HS . Venlafaxine HCl Oral 75 mg, 3x a day. --12:26 Irma Sheldon R.N. Keflex Oral. --12:26 Irma Sheldon R.N. Allergies Penicillins. Sulfa Antibiotics. Tylenol-hives . --12:26 Irma Sheldon R.N. History Arrived by private vehicle. Historian: patient. Accompanied by family. Onset. (about 10 days ago). It is described as painful. 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 PAST MEDICAL HX: Immunizations: status is unknown. Last normal menstrual period- 2007. SOCIAL HX: Current every day heavy tobacco smoker (cigarette)- less than 1 pack per day. No alcohol use or drug use. No infectious disease exposure. SELF HARM ASSESSMENT: A self harm assessment was performed. The patient answered "no" to the question "Do you have thoughts of harming or killing yourself?". FALL RISK ASSESSMENT: Fall risk assessment completed. No fall risk identified. NUTRITIONAL RISK ASSESSMENT: The nutritional risk assessment revealed no deficiencies. FUNCTIONAL ASSESSMENT: Functional assessment: no impairments noted. LEARNING NEEDS ASSESSMENT: The learning needs assessment revealed no barriers. ABUSE ASSESSMENT: Abuse assessment: The patient was asked "Do you feel safe in your home?". SKIN INTEGRITY ASSESSMENT: Skin integrity risk assessment completed. No skin integrity risk identified. --12:29 Irma Sheldon R.N. PROBLEMS: Abscess. Abdominal Pain. Vomiting. Chest Pain of GI Origin. Leukocytosis. Hyperlipidemia. Seizure. Seizure Disorder. Diabetes Mellitus. Hypertension. --12: Irma Sheldon R.N. ADDITIONAL SURGERIES: Cholecystectomy. Knee Surgery. Tonsillectomy. Tubal Ligation. --12:26 Irma Sheldon R.N. Assessment The patient states feels better. --12:29 Irma Sheldon R.N. Interventions ID band on patient. To room. --12:29 Irma Sheldon R.N. PHYSICAL ASSESSMENT GENERAL / NEURO / PSYCH: Alert. Appears in pain. Oriented X 4. HEENT: Mucous membranes are pink. RESPIRATORY: Respirations not labored. CVS: Capillary refill less than 2 seconds. GI / : Abdomen nontender. SKIN: Skin is warm and dry. --12:29 Irma Sheldon R.N. NURSING PROGRESS NOTES Patient gowned. Head of bed elevated. Two patient identifiers checked. Call light placed in reach. Side rails up x 1. Bed placed in lowest position. Brakes of bed on. --12:29 Irma Sheldon R.N. ( sanitary pad provided to patient.). --12:53 Irma Sheldon R.N. DISPOSITION / DISCHARGE Departure time: 12:54 Apr 2016. Condition at departure: improved. The following issues were addressed: pain control and comfort issues. No learning barriers present. Discharge instructions provided and reviewed with the patient. Reviewed wound care instructions. Reviewed referral to a primary care physician. Patient verbalized understanding. Written instructions provided in Bangladeshi. The patient was discharged home and accompanied by family. She left the Emergency Department ambulatory and via private vehicle. Family member driving. FALL RISK ASSESSMENT: Fall risk assessment completed. No fall risk identified. --12:54 Irma Sheldon R.N. 12:53 08/02/16. BP: 111/53. HR: 84. RR: 20. O2 saturation: 93%. Pain level now: 09/02. --12:54 Irma Sheldon R.N. Locked/Released at 08/02/2016 18:00 by Irma Sheldon R.N.
--- NOTE | 2016-08-02 12:45 | ED CLINICAL REPORT ---
Clinical Report - Physicians/Mid Levels [facility] [address] [place] [address] 08/02/2016 11:53 [id number] Time Seen: 12:20 Aug 02 2016. Arrived- By private vehicle. Historian- patient. 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 The symptoms are described as moderate. The patient has had pelvic pain. (Patient reports some improvement, has been doing daily sitz bath, as well as taking her antibiotics. Reports drainage from the wound.). Recent medical care: The patient was seen recently by a health care provider (on the for I/D). REVIEW OF SYSTEMS No nausea or diarrhea. All systems otherwise negative, except as recorded above. PAST HISTORY Problems: Abscess. Abdominal Pain. Vomiting. Chest Pain of GI Origin. Leukocytosis. Hyperlipidemia. Seizure. Seizure Disorder. Diabetes Mellitus. Hypertension. Additional Surgeries: Cholecystectomy. Knee Surgery. Tonsillectomy. Tubal Ligation. Medications: Keflex Oral. Allergy pill. Glimepiride Oral (Tablet 2 mg) 1 tablet, BID , last dose . Lisinopril Oral 20 mg, 1/2 tab day . Lovastatin Oral (Tablet 40 mg) 1 tablet, daily. MetFORMIN HCl Oral 1000mg , 2x a day. Phenytoin Oral 100 mg, 2 in am, 3 in HS . Venlafaxine HCl Oral 75 mg, 3x a day. Allergies: Penicillins. Sulfa Antibiotics. Tylenol-hives . ADDITIONAL NOTES The nursing notes have been reviewed. PHYSICAL EXAM Vital Signs: 08/02/2016 12:24 BP: 114/58. HR: 95. RR: 20. O2 saturation: 94%. Temp: 97.5 F. Pain level now: 7/10. Appearance: Alert. ENT: Pharynx normal. Neck: Neck supple. CVS: Heart sounds normal. Abdomen: Soft and nontender. Bowel sounds normal. No abdominal tenderness. : (external left exam with tech chaparone: 2-3 area of open drainage, purulent, no erythema of underlying skin, hair bunches out of the area of opening of abscess, purulent with no surrouding skin erythema.). Skin: Skin warm. PROGRESS AND PROCEDURES Course of Care: External exam was completed, with ingrown hair in multiple area and areas of incision coinciding to such, with purulent drainage, but no visible packing. Areas were explored, with digits as well as manual palpation, and material expressed. Patient tolerated this well. She is stable. Afebrile, to continue using of Keflex. No new palpable abscess or mass. 08/02/2016 12:53 BP: 111/53. HR: 84. RR: 20. O2 saturation: 93%. Pain level now: 5/10. Patient is stable. Patient/family counseled. Disposition: Discharged. CLINICAL IMPRESSION Multiple abscesses (follow up visit). INSTRUCTIONS (warm packs/ sitz bath/ continue KEFLEX follow up with PCP or CONSTRUCTION HELPER in 3-4 days). Warnings: Further evaluation is necessary. (Electronically signed by Qing Lopez P.A.-C 08/02/2016 13:07)
--- NOTE | 2016-08-02 18:01 | ED MED RECONCILIATION SUMMARY ---
Patient: ES POSADA Medication Reconciliation Report [facility] VisitID: [id number] [address] [place] [address] 55y, F Registration Date/Time: 08/02/2016 Weight: 61.2 kg Height/Length: 62 in. BMI: 24.7 ALLERGIES: Penicillins, Sulfa Antibiotics, Tylenol-hives The patient's Home Medications are listed below: THE FOLLOWING MEDICATIONS NEED TO BE RECONCILED: Allergy pill Glimepiride Oral (2 mg) 1 tablet, BID , last dose: Keflex Oral Lisinopril Oral 20 mg, 1/2 tab day Lovastatin Oral (40 mg) 1 tablet, daily MetFORMIN HCl Oral 1000mg , 2x a day Phenytoin Oral 100 mg, 2 in am, 3 in HS Venlafaxine HCl Oral 75 mg, 3x a day The source(s) of the original Home Medication information: Not obtained. The following Medications were given to the patient in the Emergency Department: None. The following Medications were prescribed to the patient: None.
--- NOTE | 2016-08-02 18:01 | ED DISCHARGE INSTRUCTIONS ---
Patient: ES POSADA General Instructions [facility] VisitID: [id number] [place] [address] 55y, F Registration Date/Time: 08/02/2016 Multiple abscesses (follow up visit). INSTRUCTIONS (warm packs/ sitz bath/ continue KEFLEX follow up with PCP or DIRECTOR OF LABOR AND DELIVERY in 3-4 days). Warnings: Further evaluation is necessary. ADDITIONAL INFORMATION Abscess [Incision & Drainage] An abscess (sometimes called a boil) occurs when bacteria get trapped under the skin and begin to grow. Pus forms inside the abscess as the body responds to the bacteria. An abscess can occur with an insect bite, ingrown hair, blocked oil gland, pimple, cyst, or puncture wound. Treatment of your abscess has required an incision to drain the pus. If the abscess pocket was large, a gauze packing may have been inserted. This will need to be removed and possibly replaced on your next visit. Antibiotics are not required in the treatment of a simple abscess, unless the infection is spreading into the skin around the wound (known as cellulitis). Healing of the wound will take about one to two weeks depending on the size of the abscess. Healthy tissue will grow from the bottom and sides of the opening until it seals over. Home Care: The wound may drain for the first two days. Cover the wound with a clean dry dressing. If the dressing becomes soaked with blood or pus, change it. If a gauze packing was placed inside the abscess cavity, you may be advised to remove it yourself. You may do this in the shower. Once the packing is removed, you should wash the area in the shower or bath 3 to 4 times a day, until the skin opening has closed. If you were prescribed antibiotics, take them as directed until they are all gone. You may use acetaminophen (Tylenol) or ibuprofen (Motrin, Advil) to control pain, unless another pain medicine was prescribed. [ NOTE: If you have liver disease or ever had a stomach ulcer, talk with your doctor before using these medicines.] Follow Up with your doctor as advised by our staff. If a gauze packing was inserted in your wound, it should be removed in 1-2 days. Check your wound every day for the signs of worsening infection listed below. Get Prompt Medical Attention if any of the following occur: Increasing redness or swelling Red streaks in the skin leading away from the wound Increasing local pain or swelling Continued pus draining from the wound two days after treatment Fever of 100.4F (38C) or higher, or as directed by your healthcare provider You have been given the following additional information: Abscess, Incision And Drainage (Electronically signed by Qing Lopez P.A.-C 08/02/2016 13:07)
--- NOTE | 2016-08-02 18:01 | ED DISCHARGE INSTRUCTIONS ---
Patient: ES POSADA General Instructions [facility] VisitID: [id number] [place] [address] 55y, F Registration Date/Time: 08/02/2016 Multiple abscesses (follow up visit). INSTRUCTIONS (warm packs/ sitz bath/ continue KEFLEX follow up with PCP or INVESTIGATIVE ASSISTANT in 3-4 days). Warnings: Further evaluation is necessary. ADDITIONAL INFORMATION Abscess [Incision & Drainage] An abscess (sometimes called a boil) occurs when bacteria get trapped under the skin and begin to grow. Pus forms inside the abscess as the body responds to the bacteria. An abscess can occur with an insect bite, ingrown hair, blocked oil gland, pimple, cyst, or puncture wound. Treatment of your abscess has required an incision to drain the pus. If the abscess pocket was large, a gauze packing may have been inserted. This will need to be removed and possibly replaced on your next visit. Antibiotics are not required in the treatment of a simple abscess, unless the infection is spreading into the skin around the wound (known as cellulitis). Healing of the wound will take about one to two weeks depending on the size of the abscess. Healthy tissue will grow from the bottom and sides of the opening until it seals over. Home Care: The wound may drain for the first two days. Cover the wound with a clean dry dressing. If the dressing becomes soaked with blood or pus, change it. If a gauze packing was placed inside the abscess cavity, you may be advised to remove it yourself. You may do this in the shower. Once the packing is removed, you should wash the area in the shower or bath 3 to 4 times a day, until the skin opening has closed. If you were prescribed antibiotics, take them as directed until they are all gone. You may use acetaminophen (Tylenol) or ibuprofen (Motrin, Advil) to control pain, unless another pain medicine was prescribed. [ NOTE: If you have liver disease or ever had a stomach ulcer, talk with your doctor before using these medicines.] Follow Up with your doctor as advised by our staff. If a gauze packing was inserted in your wound, it should be removed in 1-2 days. Check your wound every day for the signs of worsening infection listed below. Get Prompt Medical Attention if any of the following occur: Increasing redness or swelling Red streaks in the skin leading away from the wound Increasing local pain or swelling Continued pus draining from the wound two days after treatment Fever of 100.4F (38C) or higher, or as directed by your healthcare provider You have been given the following additional information: Abscess, Incision And Drainage (Electronically signed by Qing Lopez P.A.-C 08/02/2016 13:07)
--- NOTE | 2016-08-02 18:01 | ED MAR SUMMARY ---
..... Medication Administration Record [facility] [address] [place], [place] [id number] Patient: ES POSADA Visit ID: [id number] 55y, F Weight: 61.2 kg Height/Length: 62 in BMI: 24.7 ALLERGIES: Penicillins, Sulfa Antibiotics, Tylenol-hives
--- NOTE | 2016-08-02 18:01 | ED MAR SUMMARY ---
..... Medication Administration Record [facility] [address] [place], [place] [id number] Patient: ES POSADA Visit ID: [id number] 55y, F Weight: 61.2 kg Height/Length: 62 in BMI: 24.7 ALLERGIES: Penicillins, Sulfa Antibiotics, Tylenol-hives
--- NOTE | 2016-08-02 18:01 | ED MED RECONCILIATION SUMMARY ---
Patient: ES POSADA Medication Reconciliation Report [facility] VisitID: [id number] [address] [place] [address] 55y, F Registration Date/Time: 08/02/2016 Weight: 61.2 kg Height/Length: 62 in. BMI: 24.7 ALLERGIES: Penicillins, Sulfa Antibiotics, Tylenol-hives The patient's Home Medications are listed below: THE FOLLOWING MEDICATIONS NEED TO BE RECONCILED: Allergy pill Glimepiride Oral (2 mg) 1 tablet, BID , last dose: Keflex Oral Lisinopril Oral 20 mg, 1/2 tab day Lovastatin Oral (40 mg) 1 tablet, daily MetFORMIN HCl Oral 1000mg , 2x a day Phenytoin Oral 100 mg, 2 in am, 3 in HS Venlafaxine HCl Oral 75 mg, 3x a day The source(s) of the original Home Medication information: Not obtained. The following Medications were given to the patient in the Emergency Department: None. The following Medications were prescribed to the patient: None.
== END 2016-08-02 12:50 | disposition home or self-care (01) ==
LOC: ED SRH 11:53
DX: L02.91 Cutaneous abscess, unspecified (principal); E11.9 Type 2 diabetes mellitus without complications; I10 Essential (primary) hypertension; F17.210 Nicotine dependence, cigarettes, uncomplicated; Z79.899 Other long term (current) drug therapy; Z79.84 Long term (current) use of oral hypoglycemic drugs; Z88.2 Allergy status to sulfonamides; Z88.0 Allergy status to penicillin

== ENCOUNTER 2016-09-12 18:29 | Emergency (ER) | payer OTHER ==
--- NOTE | 2016-09-12 21:07 | DIAGNOSTIC IMAGING REPORT ---
PROCEDURE: ABDOMEN/PELVIS WITH CONTRAST CLINICAL INDICATION: ABDOMINAL PAIN TECHNIQUE: 120 ml of Isovue 300 were injected intravenously and axial images were obtained of the abdomen and pelvis with sagittal and coronal reformations. COMPARISON: 08/18/2015 FINDINGS: ABDOMEN: Post cholecystectomy. Intra and extrahepatic biliary dilatation. Common duct measures 515 mm maximally. Enlarged liver with cirrhotic morphology. Diffuse thickening and mild edema of the distal gastric wall. Moderate perigastric inflammation. Dilatation and fluid-filled proximal duodenum, paraduodenal inflammation, and reactive mesenteric adenopathy. No extraluminal gas. Heterogeneous, mildly enlarged spleen with scarring. Diffuse thickened, enlarged low density left adrenal gland. Normal right adrenal gland. Lobular renal contours bilaterally with scattered cysts. Normal pancreas. Heavy mixed calcified and noncalcified aortic atherosclerosis. Multiple retroperitoneal lymph nodes, nonenlarged. Liquid stool in the proximal colon. Decompressed distal colon and rectum. Clear lung bases. Normal sized heart. No hiatal hernia. PELVIS: Multiple cysts on the right ovary. Stable, solid left ovary. Stable uterus with degenerating fundal fibroid. Normal vasculature with moderate atherosclerosis, normal pelvic bowel loops, and urinary bladder. No free pelvic fluid. Intact osseous structures. IMPRESSION: 1. Peptic ulcer disease/distal gastritis, worse since the prior study. 2. Cirrhotic liver, slightly progressed since the previous study. 3. Post cholecystectomy and biliary dilatation. 4. 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 5. Multiple right ovarian cysts, new since the prior study. Consider pelvic ultrasound. 6. Discussed with Dr. Phillip in the emergency room. All CT scans at this facility use dose modulation, iterative reconstruction, and/or weight-based dosing when appropriate to reduce radiation dose to as low as reasonably achievable.
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
--- NOTE | 2016-09-12 21:59 | ED ORDER SUMMARY ---
..... Patient: ES POSADA OrderSheet [facility] VisitID: [id number] [place] [address] 55y, F Registration Date/Time: 09/12/2016 ORDER SHEET Weight: 59.8 kg (stated) Allergies: Penicillins, Sulfa Antibiotics, Tylenol-hives GENERAL ORDERS: Chest 1V Urgent (18:53 09/12/2016 MWinterer R.N. per protocol) (Ack 19:10 Laverne) (19:16 Radhames) Assembly Line Leader (Continuous) (18:53 09/12/2016 MWinterer R.N. per protocol) (18:53 MWinterer R.N.) Cardiac Panel Stat (18:53 09/12/2016 MWinterer R.N. per protocol) (Ack 19:10 Laverne) (19:55 KPage-Kuchan R.N.) Oxygen (2 L/min) (NC) (18:53 09/12/2016 MWinterer R.N. per protocol) (18:53 MWinterer R.N.) Pulse oximeter (18:53 09/12/2016 MWinterer R.N. per protocol) (18:53 MWinterer R.N.) EKG - ER Stat (18:53 09/12/2016 MWinterer R.N. per protocol) ([facility] Abd/Pel w Cont (Yes) (30/1.1) Urgent (20:02 09/12/2016 Jenn Correa) (Ack 20:05 AMcQuoid ER Tech1) (20:09 KPage-Kuchan R.N.) MEDICATION ORDERS: GI Cocktail WHITE PO 30 mL with Lidocaine Viscous Mouth/Throat 15 mL, Maalox Plus Oral 15 mL (21:41 09/12/2016 Jenn Correa) (Ack 21:48 KPage-Kuchan R.N.) (21:56 KPage-Kuchan R.N.) IV FLUIDS: Zofran IV 4 mg (NOW) (19:44 09/12/2016 Jenn Correa) (20:06 KPage-Kuchan R.N.) IV NS : initial bolus none -, then 1000 mL/hr for X1 (NOW) (20:01 09/12/2016 Jenn Correa) (Ack 20:20 Cece R.N.) (20:42 Cece R.N.) Morphine IV 4 mg (HIGH ALERT MEDICATION, NOW) (20:09 09/12/2016 Jenn Correa) (Ack 20:20 Cece R.N.) (20:42 Cece R.N.) ORDER SHEET NOTES: [Electronically signed by Olegario Phillip Dr. (22:02 09/12/2016)] [Electronically signed by Christ Garcia R.N. (22:23 09/12/2016)] [Electronically locked/signed by Christ Garcia R.N. (22:23 09/12/2016)]
--- NOTE | 2016-09-12 21:59 | ED CLINICAL REPORT ---
Clinical Report - Physicians/Mid Levels [facility] [address] [place] [address] 09/12/2016 18:29 Patient: ES POSADA Time Seen: 1845; initial patient contact. Arrived- By ambulance. Historian- patient. HISTORY OF PRESENT ILLNESS Chief Complaint: ABDOMINAL PAIN. At its maximum, severity described as moderate. When seen in the E.D., severity described as moderate. Modifying factors. Not worsened by anything. Not relieved by anything. It is described as "pain". No radiation. It is described as generalized in location. This started last night and is still present. The patient has had nausea, loss of appetite, vomiting and diarrhea. Similar symptoms previously: Many times. Recent medical care: Not recently seen/assessed. REVIEW OF SYSTEMS No constipation, hematemesis, pain with urination, fever or difficulty breathing. No cough or chills. She has had chest pain. All systems otherwise negative, except as recorded above. PAST HISTORY Abscess. Abdominal Pain. Vomiting. Chest Pain of GI Origin. Leukocytosis. Hyperlipidemia. Seizure. Seizure Disorder. Diabetes Mellitus. Hypertension. ADDITIONAL SURGERIES: Cholecystectomy. Knee Surgery. Tonsillectomy. Tubal Ligation. Medications: Allergy pill. Glimepiride Oral (Tablet 2 mg) 1 tablet, BID , last dose . Keflex Oral. Lisinopril Oral 20 mg, 1/2 tab day . Lovastatin Oral (Tablet 40 mg) 1 tablet, daily. MetFORMIN HCl Oral 1000mg , 2x a day. Phenytoin Oral 100 mg, 2 in am, 3 in HS . Venlafaxine HCl Oral 75 mg, 3x a day. Allergies: Penicillins. Sulfa Antibiotics. Tylenol-hives . SOCIAL HISTORY Current every day smoker. History of drug use: marijuana. No alcohol use. ADDITIONAL NOTES The nursing notes have been reviewed. PHYSICAL EXAM Vital Signs: 09/12/2016 18:36 BP: 101/61. HR: 110. RR: 20. O2 saturation: 95%. Temp: 98.2 F. Pain level now: 310. Have been reviewed. Blood pressure normal. Tachycardic. Respiratory rate normal. Temperature normal. Oxygen saturation normal. Appearance: Alert. Oriented X3. No acute distress. Eyes: Eyes normal inspection. No scleral icterus. ENT: Dry mucous membranes present. CVS: Normal heart rate and rhythm. Heart sounds normal. Respiratory: No respiratory distress. Breath sounds normal. Chest nontender. Abdomen: Soft. Moderate tenderness in the epigastric area. No guarding, rebound tenderness or Arriola's sign present. Bowel sounds normal. No organomegaly. No mass. Skin: Skin warm and dry. Normal skin color. Extremities: No lower extremity edema. Neuro: Oriented X 3. LABS, X-RAYS, AND EKG Abdominal CT: 1. Peptic ulcer disease/distal gastritis, worse since the prior study. 2. Cirrhotic liver, slightly progressed since the previous study. 3. Post cholecystectomy and biliary dilatation. 4. 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 5. Multiple right ovarian cysts, new since the prior study. Consider pelvic ultrasound. Study type: abdomen and pelvis. Abdominal CT performed with IV contrast. A comparison with prior studies reveals that the findings have worsened. The study was interpreted by the radiologist and discussed with the radiologist. Laboratory Tests: CBC w Diff: (JACK: 09/12/2016 18:45) ( MsgRcvd 09/12/2016 19:08) Final results Test Result Flag Units (Reference) WHITE BLOOD COUNT 19.6 H K/uL (4.5-11.5) RED BLOOD COUNT 4.87 M/uL (4.00-5.20) HEMOGLOBIN 13.0 gm/dL (12.0-16.0) HEMATOCRIT 39.8 % (36.0-46.0) MEAN CELL VOLUME 82 fL (80-100) MEAN CORPUSCULAR HGB 27 pg (26-34) MEAN CORPUSCULAR HGB CONC 33 g/dL (31-37) RED CELL DISTRIBUTION WIDTH 17.0 H % (11.6-14.8) PLATELET COUNT 313 K/uL (150-400) NEUTROPHIL % 71.9 % (50-75) LYMPH % 18.8 L % (25-40) MONO % 7.3 % (3-14) EOSINOPHIL % 1.2 % (0-4) BASOPHIL % 0.8 % (0-2) CHEM 13 PANEL: (JACK: 09/12/2016 18:45) ( MsgRcvd 09/12/2016 19:26) Final results Test Result Flag Units (Reference) GLUCOSE 310 H mg/dL (70-110) BUN 30 H mg/dL (7-18) CREATININE 1.1 mg/dL (0.6-1.3) Estimated GFR 54.41 mL/min Estimated GFR- >60 mL/min Note: Persistent reduction over 3 months in eGFR<60 mL/min/1.73 m2 defines CKD. Patients with eGFR values>=60 mL/min/1.73 m2 may also have CKD if evidence ofpersistent proteinuria. Additional information may be foundat www.kidney.org. SODIUM 134 L mmol/L (136-145) POTASSIUM 4.3 mmol/L (3.5-5.1) CHLORIDE 100 mmol/L (98-107) CARBON DIOXIDE 24 mmol/L (21-32) CALCIUM 9.6 mg/dL (8.5-10.1) TOTAL PROTEIN 8.4 H g/dL (6.4-8.2) ALBUMIN 3.3 g/dL (3.3-5.0) BILIRUBIN, TOTAL 0.3 mg/dL (0.0-1.0) ALKALINE PHOSPHATASE 126 H U/L (46-116) AST (SGOT) 13 L U/L (15-37) ALT (SGPT) 19 U/L (12-78) MAGNESIUM 1.5 L mg/dL (1.8-2.4) CPK 14 L U/L (24-260) TROPONIN I <0.05 L ng/mL (0.00-1.5) TROPONIN REFERENCE RANGE:<0.1 NEGATIVE0.1-1.5 INDETERMINANT>1.5 POSITIVE . PROGRESS AND PROCEDURES Course of Care: GI Cocktail composed of 15 mL viscous lidocaine and antacid PO given. Physical exam findings are improved. Symptoms much better. Disposition: Discharged home in good and improved condition. Condition: good. CLINICAL IMPRESSION Chronic gastritis. No alcoholic gastritis or hemorrhagic gastritis. INSTRUCTIONS Drink plenty of fluids. Avoid alcohol and NSAIDS. NSAIDS include aspirin, ibuprofen (Advil) and naproxen (Aleve). Your Current Medications: CONTINUE TAKING THE FOLLOWING MEDICATIONS: Allergy pill*. Glimepiride Oral : Tablet 2 mg, 1 tablet BID. Keflex Oral. Lisinopril Oral : 20 mg 1/2 tab day. Lovastatin Oral : Tablet 40 mg, 1 tablet daily. MetFORMIN HCl Oral : 1000mg 2x a day. Phenytoin Oral : 100 mg 2 in am, 3 in HS. Venlafaxine HCl Oral : 75 mg 3x a day. Prescription Medications: Carafate 1 gm tablets: take 1 orally four times daily (1 hour before meals and at bedtime). Dispense sixty (60). No refills. Substitution is permissible. Protonix 40 mg tablets: take 1 tablet orally every day. Dispense twenty-eight (28). Substitution is permissible. Follow-up: Follow up with your doctor in about two days. Call for an appointment. Blood pressure screening was not performed during this visit because the patient has an active diagnosis of hypertension. (Electronically signed by Olegario Phillip Dr. 09/12/2016 22:02)
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
--- NOTE | 2016-09-12 21:59 | ED ORDER SUMMARY ---
..... Patient: ES POSADA OrderSheet [facility] VisitID: [id number] [place] [address] 55y, F Registration Date/Time: 09/12/2016 ORDER SHEET Weight: 59.8 kg (stated) Allergies: Penicillins, Sulfa Antibiotics, Tylenol-hives GENERAL ORDERS: Chest 1V Urgent (18:53 09/12/2016 MWinterer R.N. per protocol) (Ack 19:10 Laverne) (19:16 Radhames) Airport Operations Manager (Continuous) (18:53 09/12/2016 MWinterer R.N. per protocol) (18:53 MWinterer R.N.) Cardiac Panel Stat (18:53 09/12/2016 MWinterer R.N. per protocol) (Ack 19:10 Laverne) (19:55 KPage-Kuchan R.N.) Oxygen (2 L/min) (NC) (18:53 09/12/2016 MWinterer R.N. per protocol) (18:53 MWinterer R.N.) Pulse oximeter (18:53 09/12/2016 MWinterer R.N. per protocol) (18:53 MWinterer R.N.) EKG - ER Stat (18:53 09/12/2016 MWinterer R.N. per protocol) ([facility] Abd/Pel w Cont (Yes) (30/1.1) Urgent (20:02 09/12/2016 Jenn Correa) (Ack 20:05 AMcQuoid ER Tech1) (20:09 KPage-Kuchan R.N.) MEDICATION ORDERS: GI Cocktail WHITE PO 30 mL with Lidocaine Viscous Mouth/Throat 15 mL, Maalox Plus Oral 15 mL (21:41 09/12/2016 Jenn Correa) (Ack 21:48 KPage-Kuchan R.N.) (21:56 KPage-Kuchan R.N.) IV FLUIDS: Zofran IV 4 mg (NOW) (19:44 09/12/2016 Jenn Correa) (20:06 KPage-Kuchan R.N.) IV NS : initial bolus none -, then 1000 mL/hr for X1 (NOW) (20:01 09/12/2016 Jenn Correa) (Ack 20:20 Cece R.N.) (20:42 Cece R.N.) Morphine IV 4 mg (HIGH ALERT MEDICATION, NOW) (20:09 09/12/2016 Jenn Crorea) (Ack 20:20 Cece R.N.) (20:42 Cece R.N.) ORDER SHEET NOTES: [Electronically signed by Olegario Phillip Dr. (22:02 09/12/2016)] [Electronically signed by Christ Garcia R.N. (22:23 09/12/2016)] [Electronically locked/signed by Christ Garcia R.N. (22:23 09/12/2016)]
--- NOTE | 2016-09-12 22:24 | ED MED RECONCILIATION SUMMARY ---
Patient: ES POSADA Medication Reconciliation Report [facility] VisitID: [id number] [address] [place] [address] 55y, F Registration Date/Time: 09/12/2016 Weight: 59.8 kg Height/Length: 62 in. BMI: 24.1 ALLERGIES: Penicillins, Sulfa Antibiotics, Tylenol-hives The patient's Home Medications are listed below: CONTINUE TAKING THE FOLLOWING MEDICATIONS: Allergy pill Glimepiride Oral (2 mg) 1 tablet, BID , last dose: Keflex Oral Lisinopril Oral 20 mg, 1/2 tab day Lovastatin Oral (40 mg) 1 tablet, daily MetFORMIN HCl Oral 1000mg , 2x a day Phenytoin Oral 100 mg, 2 in am, 3 in HS Venlafaxine HCl Oral 75 mg, 3x a day The source(s) of the original Home Medication information: patient The following Medications were given to the patient in the Emergency Department: Zofran [IVP] IVP 4 mg, administered: 09/12/2016 8:06:00 PM Morphine [IVP] IVP 4 mg, administered: 09/12/2016 8:37:00 PM IV NS IV Fluids bolus 0, then 1000 mL/hr, administered: 09/12/2016 8:32:00 PM GI COCKTAIL WHITE [PO] PO 30 mL, administered: 09/12/2016 9:56:00 PM The following Medications were prescribed to the patient: Carafate 1 gm tablets: take 1 orally four times daily (1 hour before meals and at bedtime). Dispense sixty (60). No refills. Substitution is permissible. -- Olegario Phillip Dr. Protonix 40 mg tablets: take 1 tablet orally every day. Dispense twenty-eight (28). Substitution is permissible. -- Olegario Phillip Dr.
--- NOTE | 2016-09-12 22:24 | ED MAR SUMMARY ---
..... Medication Administration Record [facility] [address] [place] [address] Patient: ES POSADA Visit ID: [id number] 55y, F Weight: 59.8 kg Height/Length: 62 in BMI: 24.1 ALLERGIES: Penicillins, Sulfa Antibiotics, Tylenol-hives Given 20:06 09/12/2016 Christ Garcia R.N. Medication Administered: ZOFRAN [IVP] (ONDANSETRON HCL), Dose: 4 mg IVP, Site: #1 left wrist. Medication Ordered: Zofran IV 4 mg (NOW). Start 20:32 09/12/2016 Christ Garcia R.N., Stop 21:45 09/12/2016 Christ Garcia R.N. Medication Administered: IV NS (SALINE), Dose: IV Fluids, Rate: 1000 mL/hr, Dispensed: 1000 mL bag, Site: #1 left wrist. Medication Ordered: IV NS : initial bolus none -, then 1000 mL/hr for X1 (NOW). Given 20:37 09/12/2016 Christ Garcia R.N. Medication Administered: MORPHINE [IVP], Dose: 4 mg IVP, Site: #1 left wrist. Medication Ordered: Morphine IV 4 mg (HIGH ALERT MEDICATION, NOW). Given 21:56 09/12/2016 Christ Garcia R.N. Medication Administered: GI COCKTAIL WHITE [PO] (SIMETHICONE), Dose: 30 mL Oral Suspension PO. Medication Ordered: GI Cocktail WHITE PO 30 mL with Lidocaine Viscous Mouth/Throat 15 mL, Maalox Plus Oral 15 mL.
--- NOTE | 2016-09-12 22:24 | ED DISCHARGE INSTRUCTIONS ---
Patient: ES POSADA General Instructions [facility] VisitID: [id number] [place] [address] 55y, F Registration Date/Time: 09/12/2016 Chronic gastritis. No alcoholic gastritis or hemorrhagic gastritis. INSTRUCTIONS Drink plenty of fluids. Avoid alcohol and NSAIDS. NSAIDS include aspirin, ibuprofen (Advil) and naproxen (Aleve). Your Current Medications: CONTINUE TAKING THE FOLLOWING MEDICATIONS: Allergy pill*. Glimepiride Oral : Tablet 2 mg, 1 tablet BID. Keflex Oral. Lisinopril Oral : 20 mg 1/2 tab day. Lovastatin Oral : Tablet 40 mg, 1 tablet daily. MetFORMIN HCl Oral : 1000mg 2x a day. Phenytoin Oral : 100 mg 2 in am, 3 in HS. Venlafaxine HCl Oral : 75 mg 3x a day. Prescription Medications: Carafate 1 gm tablets: take 1 orally four times daily (1 hour before meals and at bedtime). Dispense sixty (60). No refills. Substitution is permissible. Protonix 40 mg tablets: take 1 tablet orally every day. Dispense twenty-eight (28). Substitution is permissible. Follow-up: Follow up with your doctor in about two days. Call for an appointment. Blood pressure screening was not performed during this visit because the patient has an active diagnosis of hypertension. ADDITIONAL INFORMATION Gastritis (Adult) Gastritis is an irritation of the stomach lining. It can be acute (recent) or chronic (lasting a long time). Gastritis can be caused by overuse of alcohol or anti-inflammatory medications (such as aspirin, ibuprofen, or prednisone). H pyloriinfection can also cause chronic gastritis. Gastritis can cause a dull ache or burning pain in the upper abdomen. Other symptoms include nausea, vomiting, loss of appetite, and belching or bloating. Blood in the vomit or stools (red or black) is a sign of bleeding in the stomach. This requires immediate medical attention. Tests for H pyloriare used to screen for bacterial infection. If no infection is found, gastritis can be treated by stopping the cause and treating with antacids plus an acid vania medication. If H pylori infection is found, antibiotics will also be prescribed. Persons 55 years and older may undergo other tests before treatment is started. Two common tests are used to evaluate your symptoms. An upper GI series is an x-ray taken after you drink a chalky liquid called barium. This coats the stomach and allows the doctor to view any problems in the stomach on the x-ray. Another test is called endoscopy, during which a long thin tube called an endoscope is passed down your throat to the stomach. A camera at the end of the scope allows the doctor to view inside the stomach to check the cause of your symptoms. Home Care: Take the prescribed acid vania medication for the full course of treatment even if you begin to feel better sooner. This medication can take up to several days to fully control your symptoms. If you cant afford the prescribed medication, you can try iyos-kxa-iwskwau acid blockers, such as Pepcid AC, Tagamet, Zantac, or Aciphex. If these do not relieve your symptoms, a stronger acid-vania can be tried, such as Prilosec OTC. If you have been prescribed an antibiotic to treat H pyloriinfection, finish the full course of medication. Do so even if you begin to feel better sooner. If you stop the medication too soon, the infection can return and be harder to treat. You can use antacids, such as Tums, Rolaids, Mylanta, or Maalox, for pain. This will be useful the first few days after starting acid blockers when the blockers havent started working yet. Follow the directions on the label. Liquid antacids may work better than tablets. Note that antacids can interfere with absorption of certain medications. Specifically, do not take Tagamet (cimetidine), Zantac (ranitidine), or Carafate (sucralfate) within 1 hour of taking an antacid. Talk with your pharmacist if you have any questions. Symptoms of gastritis can be worsened by certain foods. Limit or avoid fatty, fried, and spicy foods, as well as coffee, chocolate, mint, and foods with high acid content such as tomatoes and citrus fruit and juices (orange, grapefruit, lemon). Avoid alcohol, caffeine, and tobacco, which can delay healing. Avoid aspirin and anti-inflammatory medications such as ibuprofen (Advil, Motrin) and naproxen (Naprosyn, Aleve). Acetaminophen (Tylenol) is safe to use. Do not take more than the amount listed on the label. Follow Up with your doctor, or as advised by our staff. Further testing may be needed. If you do not improve over the next 4 days, contact your doctor. If you had an x-ray, CT scan, or ECG (electrocardiogram), it will be reviewed by a specialist. Youll be notified of any new findings that affect your care. Get Prompt Medical Attention if any of the following occur: Stomach pain gets worse or moves to the lower right abdomen (appendix area) Chest pain appears or gets worse, or spreads to the back, neck, shoulder, or arm Frequent vomiting (cant keep down liquids) Blood in the stool or vomit (red or black in color) Feeling weak or dizzy, fainting, or trouble breathing Fever of 100.4F (38C) or higher, or as directed by your healthcare provider Sucralfate Oral tablet What is this medicine? SUCRALFATE (JAY fausto fate) helps to treat ulcers of the intestine. How should I use this medicine? Take this medicine by mouth with a glass of water. Follow the directions on the prescription label. This medicine works best if you take it on an empty stomach, 1 hour before meals. Take your doses at regular intervals. Do not take your medicine more often than directed. Do not stop taking except on your doctor's advice. Talk to your intern architect regarding the use of this medicine in children. Special care may be needed. What side effects may I notice from receiving this medicine? Side effects that you should report to your doctor or health critical care physician as soon as possible: allergic reactions like skin rash, itching or hives, swelling of the face, lips, or tongue difficulty breathing Side effects that usually do not require medical attention (report to your doctor or health critical care physician if they continue or are bothersome): back pain constipation drowsy, dizzy dry mouth headache stomach upset, gas trouble sleeping What may interact with this medicine? antacid cimetidine digoxin ketoconazole phenytoin quinidine ranitidine some antibiotics like ciprofloxacin, norfloxacin, and ofloxacin theophylline thyroid hormones warfarin What if I miss a dose? If you miss a dose, take it as soon as you can. If it is almost time for your next dose, take only that dose. Do not take double or extra doses. Where should I keep my medicine? Keep out of the reach of children. Store at room temperature between 15 and 30 degrees C (59 and 86 degrees F). Keep container tightly closed. Throw away any unused medicine after the expiration date. What should I tell my health care provider before I take this medicine? They need to know if you have any of these conditions: kidney disease an unusual or allergic reaction to sucralfate, other medicines, foods, dyes, or preservatives or trying to get breast-feeding What should I watch for while using this medicine? Visit your doctor or health critical care physician for regular check ups. Let your doctor know if your symptoms do not improve or if you feel worse. Antacids should not be taken within one half hour before or after this medicine. Pantoprazole Sodium Gastro-resistant tablet What is this medicine? PANTOPRAZOLE (pierre TOE pra zole) prevents the production of acid in the stomach. It is used to treat gastroesophageal reflux disease (GERD), inflammation of the esophagus, and Jacquelyn-Russell syndrome. How should I use this medicine? Take this medicine by mouth. Swallow the tablets whole with a drink of water. Follow the directions on the prescription label. Do not crush, break, or chew. Take your medicine at regular intervals. Do not take your medicine more often than directed. Talk to your intern architect regarding the use of this medicine in children. While this drug may be prescribed for children as young as 5 years for selected conditions, precautions do apply. What side effects may I notice from receiving this medicine? Side effects that you should report to your doctor or health critical care physician as soon as possible: allergic reactions like skin rash, itching or hives, swelling of the face, lips, or tongue bone, muscle or joint pain breathing problems chest pain or chest tightness dark yellow or brown urine dizziness fast, irregular heartbeat feeling faint or lightheaded fever or sore throat muscle spasm palpitations redness, blistering, peeling or loosening of the skin, including inside the mouth seizures tremors unusual bleeding or bruising unusually weak or tired yellowing of the eyes or skin Side effects that usually do not require medical attention (Report these to your doctor or health critical care physician if they continue or are bothersome.): constipation diarrhea dry mouth headache nausea What may interact with this medicine? Do not take this medicine with any of the following medications: atazanavir nelfinavir This medicine may also interact with the following medications: ampicillin delavirdine digoxin diuretics iron salts medicines for fungal infections like ketoconazole, itraconazole and voriconazole warfarin What if I miss a dose? If you miss a dose, take it as soon as you can. If it is almost time for your next dose, take only that dose. Do not take double or extra doses. Where should I keep my medicine? Keep out of the reach of children. Store at room temperature between 15 and 30 degrees C (59 and 86 degrees F). Protect from light and moisture. Throw away any unused medicine after the expiration date. What should I tell my health care provider before I take this medicine? They need to know if you have any of these conditions: liver disease low levels of magnesium in the blood an unusual or allergic reaction to omeprazole, lansoprazole, pantoprazole, rabeprazole, other medicines, foods, dyes, or preservatives or trying to get breast-feeding What should I watch for while using this medicine? It can take several days before your stomach pain gets better. Check with your doctor or health critical care physician if your condition does not start to get better, or if it gets worse. You may need blood work done while you are taking this medicine. You have been given the following additional information: Gastritis (Adult) Sucralfate Oral tablet Pantoprazole Sodium Gastro-resistant tablet (Electronically signed by Olegario Phillip Dr. 09/12/2016 22:02)
--- NOTE | 2016-09-12 22:24 | ED MED RECONCILIATION SUMMARY ---
Patient: ES POSADA Medication Reconciliation Report [facility] VisitID: [id number] [address] [place] [address] 55y, F Registration Date/Time: 09/12/2016 Weight: 59.8 kg Height/Length: 62 in. BMI: 24.1 ALLERGIES: Penicillins, Sulfa Antibiotics, Tylenol-hives The patient's Home Medications are listed below: CONTINUE TAKING THE FOLLOWING MEDICATIONS: Allergy pill Glimepiride Oral (2 mg) 1 tablet, BID , last dose: Keflex Oral Lisinopril Oral 20 mg, 1/2 tab day Lovastatin Oral (40 mg) 1 tablet, daily MetFORMIN HCl Oral 1000mg , 2x a day Phenytoin Oral 100 mg, 2 in am, 3 in HS Venlafaxine HCl Oral 75 mg, 3x a day The source(s) of the original Home Medication information: patient The following Medications were given to the patient in the Emergency Department: Zofran [IVP] IVP 4 mg, administered: 09/12/2016 8:06:00 PM Morphine [IVP] IVP 4 mg, administered: 09/12/2016 8:37:00 PM IV NS IV Fluids bolus 0, then 1000 mL/hr, administered: 09/12/2016 8:32:00 PM GI COCKTAIL WHITE [PO] PO 30 mL, administered: 09/12/2016 9:56:00 PM The following Medications were prescribed to the patient: Carafate 1 gm tablets: take 1 orally four times daily (1 hour before meals and at bedtime). Dispense sixty (60). No refills. Substitution is permissible. -- Olegario Phillip Dr. Protonix 40 mg tablets: take 1 tablet orally every day. Dispense twenty-eight (28). Substitution is permissible. -- Olegario Phillip Dr.
--- NOTE | 2016-09-12 22:24 | ED MAR SUMMARY ---
..... Medication Administration Record [facility] [address] [place] [address] Patient: ES POSADA Visit ID: [id number] 55y, F Weight: 59.8 kg Height/Length: 62 in BMI: 24.1 ALLERGIES: Penicillins, Sulfa Antibiotics, Tylenol-hives Given 20:06 09/12/2016 Christ Garcia R.N. Medication Administered: ZOFRAN [IVP] (ONDANSETRON HCL), Dose: 4 mg IVP, Site: #1 left wrist. Medication Ordered: Zofran IV 4 mg (NOW). Start 20:32 09/12/2016 Christ Garcia R.N., Stop 21:45 09/12/2016 Christ Garcia R.N. Medication Administered: IV NS (SALINE), Dose: IV Fluids, Rate: 1000 mL/hr, Dispensed: 1000 mL bag, Site: #1 left wrist. Medication Ordered: IV NS : initial bolus none -, then 1000 mL/hr for X1 (NOW). Given 20:37 09/12/2016 Christ Garcia R.N. Medication Administered: MORPHINE [IVP], Dose: 4 mg IVP, Site: #1 left wrist. Medication Ordered: Morphine IV 4 mg (HIGH ALERT MEDICATION, NOW). Given 21:56 09/12/2016 Christ Garcia R.N. Medication Administered: GI COCKTAIL WHITE [PO] (SIMETHICONE), Dose: 30 mL Oral Suspension PO. Medication Ordered: GI Cocktail WHITE PO 30 mL with Lidocaine Viscous Mouth/Throat 15 mL, Maalox Plus Oral 15 mL.
--- NOTE | 2016-09-12 22:24 | ED DISCHARGE INSTRUCTIONS ---
Patient: ES POSADA General Instructions [facility] VisitID: [id number] [place] [address] 55y, F Registration Date/Time: 09/12/2016 Chronic gastritis. No alcoholic gastritis or hemorrhagic gastritis. INSTRUCTIONS Drink plenty of fluids. Avoid alcohol and NSAIDS. NSAIDS include aspirin, ibuprofen (Advil) and naproxen (Aleve). Your Current Medications: CONTINUE TAKING THE FOLLOWING MEDICATIONS: Allergy pill*. Glimepiride Oral : Tablet 2 mg, 1 tablet BID. Keflex Oral. Lisinopril Oral : 20 mg 1/2 tab day. Lovastatin Oral : Tablet 40 mg, 1 tablet daily. MetFORMIN HCl Oral : 1000mg 2x a day. Phenytoin Oral : 100 mg 2 in am, 3 in HS. Venlafaxine HCl Oral : 75 mg 3x a day. Prescription Medications: Carafate 1 gm tablets: take 1 orally four times daily (1 hour before meals and at bedtime). Dispense sixty (60). No refills. Substitution is permissible. Protonix 40 mg tablets: take 1 tablet orally every day. Dispense twenty-eight (28). Substitution is permissible. Follow-up: Follow up with your doctor in about two days. Call for an appointment. Blood pressure screening was not performed during this visit because the patient has an active diagnosis of hypertension. ADDITIONAL INFORMATION Gastritis (Adult) Gastritis is an irritation of the stomach lining. It can be acute (recent) or chronic (lasting a long time). Gastritis can be caused by overuse of alcohol or anti-inflammatory medications (such as aspirin, ibuprofen, or prednisone). H pyloriinfection can also cause chronic gastritis. Gastritis can cause a dull ache or burning pain in the upper abdomen. Other symptoms include nausea, vomiting, loss of appetite, and belching or bloating. Blood in the vomit or stools (red or black) is a sign of bleeding in the stomach. This requires immediate medical attention. Tests for H pyloriare used to screen for bacterial infection. If no infection is found, gastritis can be treated by stopping the cause and treating with antacids plus an acid vania medication. If H pylori infection is found, antibiotics will also be prescribed. Persons 55 years and older may undergo other tests before treatment is started. Two common tests are used to evaluate your symptoms. An upper GI series is an x-ray taken after you drink a chalky liquid called barium. This coats the stomach and allows the doctor to view any problems in the stomach on the x-ray. Another test is called endoscopy, during which a long thin tube called an endoscope is passed down your throat to the stomach. A camera at the end of the scope allows the doctor to view inside the stomach to check the cause of your symptoms. Home Care: Take the prescribed acid vania medication for the full course of treatment even if you begin to feel better sooner. This medication can take up to several days to fully control your symptoms. If you cant afford the prescribed medication, you can try [id number]-aqldcow acid blockers, such as Pepcid AC, Tagamet, Zantac, or Aciphex. If these do not relieve your symptoms, a stronger acid-vania can be tried, such as Prilosec OTC. If you have been prescribed an antibiotic to treat H pyloriinfection, finish the full course of medication. Do so even if you begin to feel better sooner. If you stop the medication too soon, the infection can return and be harder to treat. You can use antacids, such as Tums, Rolaids, Mylanta, or Maalox, for pain. This will be useful the first few days after starting acid blockers when the blockers havent started working yet. Follow the directions on the label. Liquid antacids may work better than tablets. Note that antacids can interfere with absorption of certain medications. Specifically, do not take Tagamet (cimetidine), Zantac (ranitidine), or Carafate (sucralfate) within 1 hour of taking an antacid. Talk with your pharmacist if you have any questions. Symptoms of gastritis can be worsened by certain foods. Limit or avoid fatty, fried, and spicy foods, as well as coffee, chocolate, mint, and foods with high acid content such as tomatoes and citrus fruit and juices (orange, grapefruit, lemon). Avoid alcohol, caffeine, and tobacco, which can delay healing. Avoid aspirin and anti-inflammatory medications such as ibuprofen (Advil, Motrin) and naproxen (Naprosyn, Aleve). Acetaminophen (Tylenol) is safe to use. Do not take more than the amount listed on the label. Follow Up with your doctor, or as advised by our staff. Further testing may be needed. If you do not improve over the next 4 days, contact your doctor. If you had an x-ray, CT scan, or ECG (electrocardiogram), it will be reviewed by a specialist. Youll be notified of any new findings that affect your care. Get Prompt Medical Attention if any of the following occur: Stomach pain gets worse or moves to the lower right abdomen (appendix area) Chest pain appears or gets worse, or spreads to the back, neck, shoulder, or arm Frequent vomiting (cant keep down liquids) Blood in the stool or vomit (red or black in color) Feeling weak or dizzy, fainting, or trouble breathing Fever of 100.4F (38C) or higher, or as directed by your healthcare provider Sucralfate Oral tablet What is this medicine? SUCRALFATE (JAY fausto fate) helps to treat ulcers of the intestine. How should I use this medicine? Take this medicine by mouth with a glass of water. Follow the directions on the prescription label. This medicine works best if you take it on an empty stomach, 1 hour before meals. Take your doses at regular intervals. Do not take your medicine more often than directed. Do not stop taking except on your doctor's advice. Talk to your hospice home care coordinator regarding the use of this medicine in children. Special care may be needed. What side effects may I notice from receiving this medicine? Side effects that you should report to your doctor or health lawn care specialist as soon as possible: allergic reactions like skin rash, itching or hives, swelling of the face, lips, or tongue difficulty breathing Side effects that usually do not require medical attention (report to your doctor or health lawn care specialist if they continue or are bothersome): back pain constipation drowsy, dizzy dry mouth headache stomach upset, gas trouble sleeping What may interact with this medicine? antacid cimetidine digoxin ketoconazole phenytoin quinidine ranitidine some antibiotics like ciprofloxacin, norfloxacin, and ofloxacin theophylline thyroid hormones warfarin What if I miss a dose? If you miss a dose, take it as soon as you can. If it is almost time for your next dose, take only that dose. Do not take double or extra doses. Where should I keep my medicine? Keep out of the reach of children. Store at room temperature between 15 and 30 degrees C (59 and 86 degrees F). Keep container tightly closed. Throw away any unused medicine after the expiration date. What should I tell my health care provider before I take this medicine? They need to know if you have any of these conditions: kidney disease an unusual or allergic reaction to sucralfate, other medicines, foods, dyes, or preservatives or trying to get breast-feeding What should I watch for while using this medicine? Visit your doctor or health lawn care specialist for regular check ups. Let your doctor know if your symptoms do not improve or if you feel worse. Antacids should not be taken within one half hour before or after this medicine. Pantoprazole Sodium Gastro-resistant tablet What is this medicine? PANTOPRAZOLE (pierre TOE pra zole) prevents the production of acid in the stomach. It is used to treat gastroesophageal reflux disease (GERD), inflammation of the esophagus, and Jacquelyn-Russell syndrome. How should I use this medicine? Take this medicine by mouth. Swallow the tablets whole with a drink of water. Follow the directions on the prescription label. Do not crush, break, or chew. Take your medicine at regular intervals. Do not take your medicine more often than directed. Talk to your hospice home care coordinator regarding the use of this medicine in children. While this drug may be prescribed for children as young as 5 years for selected conditions, precautions do apply. What side effects may I notice from receiving this medicine? Side effects that you should report to your doctor or health lawn care specialist as soon as possible: allergic reactions like skin rash, itching or hives, swelling of the face, lips, or tongue bone, muscle or joint pain breathing problems chest pain or chest tightness dark yellow or brown urine dizziness fast, irregular heartbeat feeling faint or lightheaded fever or sore throat muscle spasm palpitations redness, blistering, peeling or loosening of the skin, including inside the mouth seizures tremors unusual bleeding or bruising unusually weak or tired yellowing of the eyes or skin Side effects that usually do not require medical attention (Report these to your doctor or health lawn care specialist if they continue or are bothersome.): constipation diarrhea dry mouth headache nausea What may interact with this medicine? Do not take this medicine with any of the following medications: atazanavir nelfinavir This medicine may also interact with the following medications: ampicillin delavirdine digoxin diuretics iron salts medicines for fungal infections like ketoconazole, itraconazole and voriconazole warfarin What if I miss a dose? If you miss a dose, take it as soon as you can. If it is almost time for your next dose, take only that dose. Do not take double or extra doses. Where should I keep my medicine? Keep out of the reach of children. Store at room temperature between 15 and 30 degrees C (59 and 86 degrees F). Protect from light and moisture. Throw away any unused medicine after the expiration date. What should I tell my health care provider before I take this medicine? They need to know if you have any of these conditions: liver disease low levels of magnesium in the blood an unusual or allergic reaction to omeprazole, lansoprazole, pantoprazole, rabeprazole, other medicines, foods, dyes, or preservatives or trying to get breast-feeding What should I watch for while using this medicine? It can take several days before your stomach pain gets better. Check with your doctor or health lawn care specialist if your condition does not start to get better, or if it gets worse. You may need blood work done while you are taking this medicine. You have been given the following additional information: Gastritis (Adult) Sucralfate Oral tablet Pantoprazole Sodium Gastro-resistant tablet (Electronically signed by Olegario Phillip Dr. 09/12/2016 22:02)
--- NOTE | 2016-09-12 22:43 | DIAGNOSTIC IMAGING REPORT ---
PROCEDURE: XR CHEST 1 VIEW INDICATION: CHEST PAIN TECHNIQUE: Single view chest. 1915 hours COMPARISON: 08/04/2015 FINDINGS: The cardiopulmonary contour and central vasculature are stable, within normal limits. The lungs are clear without focal consolidation, pleural effusion or pneumothorax. The osseous structures are intact. IMPRESSION: 1. No evidence of acute cardiopulmonary disease.
== END 2016-09-12 22:21 | disposition home or self-care (01) ==
LOC: ED SRH 18:29
DX: K29.50 Unspecified chronic gastritis without bleeding (principal); R10.84 Generalized abdominal pain; Z79.2 Long term (current) use of antibiotics; E11.9 Type 2 diabetes mellitus without complications; E78.5 Hyperlipidemia, unspecified; F17.200 Nicotine dependence, unspecified, uncomplicated; Z79.84 Long term (current) use of oral hypoglycemic drugs; Z88.0 Allergy status to penicillin; Z88.2 Allergy status to sulfonamides; Z79.1 Long term (current) use of non-steroidal anti-inflammatories (NSAID)
CPT/HCPCS: 90100; 90616; 92610; 92720; 95059

== ENCOUNTER 2016-09-17 23:03 | Inpatient (IN) | payer OTHER ==
[~2016-09-17] VITALS: Ht 157.5 cm; Wt 68.5 kg
[2016-09-18] VITALS (25 sets, daily range): BP systolic 101–161; BP diastolic 36–75
--- NOTE | 2016-09-18 00:12 | DIAGNOSTIC IMAGING REPORT ---
PROCEDURE: XR CHEST 1 VIEW INDICATION: GI BLEED TECHNIQUE: Portable AP view 11:57 p.m. COMPARISON: Chest x-ray 09/12/2016 FINDINGS: Lungs are clear. Heart and mediastinum are normal. Thorax is normal. IMPRESSION: 1. Negative chest.
--- NOTE | 2016-09-18 01:11 | ED NURSING NOTES ---
Clinical Report - Nurses [facility] [address] [place] [address] 09/17/2016 23:03 Patient: ES POSADA TRIAGE Triage time 23:15 Sep 17 2016. Acuity: LEVEL 3. Chief Complaint: (IDDM with Hyperglycemia). Alert (Lerthargic). JOSE JUAN COMA SCORE: Jose Juan Coma Scale: 13- eyes open to voice (3); best verbal response- oriented x 4 (5); best motor response- localizes to pain (5). --23:36 Isrrael Chavez R.N. 23:09 09/17/16. BP: 77/57. HR: 116. RR: 14. O2 saturation: 99% on nasal cannula at 3 liters/minute. Temp: 97 F (oral). Pain level now: 0/10. --23:36 Isrrael Chavez R.N. <<STRICKEN ENTRY-- 00:55. --01:38 Isrrael Chavez R.N. --END STRIKE>> Correction --01:39 Isrrael Chavez R.N. Weight: 59.8 kg stated. Height/Length: 62 inches Per Patient. BMI: 24.1. --23:32 Isrrael Chavez R.N. Medications Allergy pill. Glimepiride Oral (Tablet 2 mg) 1 tablet, BID , last dose . Lisinopril Oral 20 mg, 1/2 tab day . Lovastatin Oral (Tablet 40 mg) 1 tablet, daily. MetFORMIN HCl Oral 1000mg , 2x a day. Phenytoin Oral 100 mg, 2 in am, 3 in HS . Venlafaxine HCl Oral 75 mg, 3x a day. --23:09 Isrrael Chavez R.N. Allergies Penicillins. Sulfa Antibiotics. Tylenol-hives . --23:09 Isrrael Chavez R.N. History Arrived by EMS. Historian: EMS and patient. Unaccompanied. ( IDDM with Hyperglycemia, HTN and Melena. Pt states that she has not been taking her Insulin at home). This started today. She has had weakness. Treatment CUSTOMER OPERATIONS REPRESENTATIVE: None. PAST MEDICAL HX: Immunizations: status is unknown. The patient is post-menopausal. SOCIAL HX: Heavy tobacco smoker- less than 1 pack per day. ABUSE ASSESSMENT: No report of abuse. NUTRITIONAL RISK ASSESSMENT: The nutritional risk assessment revealed no deficiencies. FUNCTIONAL ASSESSMENT: Functional assessment: no impairments noted. LEARNING NEEDS ASSESSMENT: The learning needs assessment revealed no barriers. FALL RISK ASSESSMENT: Fall risk assessment completed. Risk factors identified include postural hypotension and patient impairment of cognition. SKIN INTEGRITY ASSESSMENT: Skin integrity risk assessment completed. No skin integrity risk identified. --23:36 Isrrael Chavez R.N. <<STRICKEN ENTRY-- PAST MEDICAL HX: ( 1st Unit of PRBC's started (see blood flow sheet)). --01:38 Isrrael Chavez R.N. --END STRIKE>> Correction --01:39 Isrrael Chavez R.N. PROBLEMS: Gastritis. Abscess. Abdominal Pain. Vomiting. Chest Pain of GI Origin. Leukocytosis. Hyperlipidemia. Seizure. Seizure Disorder. Diabetes Mellitus. Hypertension. --23:34 Isrrael Chavez R.N. ADDITIONAL SURGERIES: Cholecystectomy. Knee Surgery. Tonsillectomy. Tubal Ligation. --23:34 Isrrael Chavez R.N. Interventions ID and allergy band on patient. To treatment room. --23:36 Isrrael Chavez R.N. NURSING PROGRESS NOTES 23:36 09/17/16. BP: 103/56. HR: 102. RR: 16. O2 saturation: 100%. End tidal CO2: 22 mmHg. Pain level now: 0/10. --23:40 Isrrael Chavez R.N. <<STRICKEN ENTRY-- 00:30 09/17/2016 Started 10 unit of Insulin Reg Drip IV in bag #1 100 mL; at 10 unit/hr over 30 minute(s) via site #3 via IV pump. Allergies verified and confirmed 5 rights. IV patency established. IV site checked: no pain, redness, or swelling. IV flushed thoroughly pre- and post-medication administration. --00:41 Isrrael Chavez R.N. --END STRIKE>> Correction. --03:47 Isrrael Chavez R.N. 23:15 09/17/16. Oxygen administered by nasal cannula at 3 liters. Monitoring of patient in place. Patient gowned. Reassurance given to the patient. Patient identifiers checked. Call light placed in reach. Side rails up x 2. Bed placed in lowest position. Brakes of bed on. Patient ready for evaluation- chart flagged and ED physician notified. --23:41 Isrrael Chavez R.N. 23:09/17/2016 Site #1 started via IV in the right foot with an 22g angiocath, with aseptic technique and good blood return; one attempt. Saline lock flushed with 10 mL saline (start by ANDERSON Kaiser). --00:12 Isrrael Chavez R.N. 23:09/17/2016 Site #2 started via intraosseous device in the right proximal tibia with an 20g angiocath, with aseptic technique and good blood return; one attempt. Saline lock flushed with 10 mL saline (start by EMS, unableto draw a blood specimenfromthis site.). --00:14 Isrrael Chavez R.N. 23:09/17/2016 Started bag #1 1000 mL IV Fluids IV NS (Saline); at 999 mL/hr over 60 minute(s) via site #1 via IV pump. Allergies verified and confirmed 5 rights. IV patency established. IV site checked: no pain, redness, or swelling. IV flushed thoroughly pre- and post-medication administration. --00:12 Isrrale Chavez R.N. 23:09/17/2016 Site #3 started via IV in the left femoral with an 18g angiocath using 2% intra-dermal lidocaine, with aseptic technique and good blood return; one attempt. Blood drawn: rainbow set. Labeled in the presence of the patient. Saline lock flushed with 10 mL saline (startby Dr. Vasquez). --00:18 Isrrael Chavez R.N. 23:09/17/2016 Started bag #2 1000 mL IV Fluids IV NS (Saline); at 999 mL/hr over 60 minute(s) via site #3 via IV pump. Allergies verified and confirmed 5 rights. IV patency established. IV site checked: no pain, redness, or swelling. IV flushed thoroughly pre- and post-medication administration. --00:19 Isrrael Chavez R.N. Critical value relayed to ED by bryan. Critical value received by james. Glucose: 623. BUN: 74. Critical value read back. Verified lab result and patient ID. ED physician notifed of critical value. --00:25 Isrrael Chavez R.N. 00:00. Finger stick glucose: 459 mg/dL; performed by nurse; result shown to the ED physician. --00:38 Isrrael Chavez R.N. 23:45. Finger stick glucose: >500; performed by nurse; result shown to the ED physician. --00:20 Isrrael Chavez R.N. 00:01 09/18/2016 Insulin Reg Drip IV via IV site #3 Rate Changed: bag #1 decreased to 3 unit/hr via IV pump. IV patency established. IV site checked: no pain, redness, or swelling. IV flushed thoroughly. Confirmed 5 Rights. --00:44 Isrrael Chavez R.N. EKG time: (0016 AM). EKG was performed by a nurse and shown to the ED physician. Late Entry. --01:14 Isrrael Chavez R.N. 00:30 09/18/2016 IV Fluids IV NS Bag Change: bag #2 infused. Total amount infused: 1000. STARTED bag #3 (1000 mL) at 999 mL/hr via IV pump. Confirmed 5 rights. IV patency established. IV site checked: no pain, redness, or swelling. IV flushed thoroughly. --01:27 Isrrael Chavez R.N. 00:45 09/18/16. 14 fr temperature sensing dobson catheter placed. Reason for indwelling catheter: critical need to monitor intake and output. Return of yellow-colored cloudy urine; odor is normal; attached to bedside drainage bag positioned below the bladder and urimeter and secured with velcro. She tolerated procedure well. --01:17 Isrrael Chavez R.N. 00:54 09/18/2016 PROTONIX (Pantoprazole Sodium) IVP 80 mg given over 4 minute(s) via site #3. Allergies verified and confirmed 5 rights. IV patency established. IV site checked: no pain, redness, or swelling. IV flushed thoroughly pre- and post-medication administration. IVP given by RN. --01:09 Isrrael Chavez R.N. 00:30. Checked patient name, birthdate and medical record number. Blood samples drawn by nurse: blood culture (1st set). (Serum Lactate). --01:30 Isrrael Chavez R.N. 00:45 late entry -. Patient ID band checked for patient name: patient confirmed. Instructions provided to collect clean catch urine. Catheterized urine collected with return of yellow-colored cloudy urine; odor is normal; sample sent to lab for urinalysis and culture. Specimen labeled in the presence of the patient. --01:19 Isrrael Chavez R.N. 01:20 09/18/16. Critical value relayed to ED by Stock Blender. Critical value received by Isrrael Chavez RN. Lactate level: 6.6. Critical value read back. Provider notifed of critical value. Orders were received. --01:20 Isrrael Chavez R.N. 01:32 09/18/2016 IV Fluids IV NS Bag Change: bag #1 infused. Total amount infused: 1000. STARTED bag #4 (1000 mL) at 21 mL/hr via IV pump. Confirmed 5 rights. IV patency established. IV site checked: no pain, redness, or swelling. IV flushed thoroughly. --01:37 Isrrael Chavez R.N. ( 0055--1st Unit PRBC's started (see Blood Administration Record)). --01:56 Isrrael Chavez R.N. 01:57 09/18/16. BP: 87/44. HR: 97. RR: 16. O2 saturation: 100%. End tidal CO2: 25 mmHg. --02:19 Isrrael Chavez R.N. 02:15 09/18/16. BP: 104/41. HR: 90. RR: 16. O2 saturation: 99% on nasal cannula at 3 liters/minute. Pain level now: 0/10. --02:20 Isrrael Chavez R.N. 00:15 09/18/2016 Site #2 removed. Catheter intact. Bandaid applied. --03:34 Isrrael Chavez R.N. 03:00 09/18/2016 Site #[address] upon admission; no pain and no signs of infection or infiltration. Good blood return present. Converted to saline lock and flushed with 10 mL saline; flushes easily. --03:35 Isrrael Chavez R.N. 03:00 09/18/2016 Site #[address] upon admission; patent, no pain and no signs of infection or infiltration. Good blood return present. Flushed with 10 mL saline; flushes easily. --03:38 Isrrael Chavez R.N. 03:00 09/18/2016 Insulin Reg Drip IV Continued: upon admission at the rate of 3 unit/hr. 90 mL remaining bag #1. IV patency established. IV site checked: no pain, redness, or swelling. IV flushed thoroughly. (Insulin gtt). --03:33 Isrrael Chavez R.N. 02:45. Point of care testing: performed by nurse. Glucose: 445. Result shown to the ED physician. Orders were not received. --03:42 Isrrael Chavez R.N. 02:30 09/18/16. BP: 97/46. HR: 91. RR: 22. O2 saturation: 99% on nasal cannula at 3 liters/minute. End tidal CO2: 24 mmHg. Pain level now: 0/10. --03:43 Isrrael Chaevz R.N. 00:30 09/18/2016 Started 10 unit of Insulin Reg Drip IV in bag #1 100 mL; at 10 unit/hr over 30 minute(s) via site #3 via IV pump. Allergies verified and confirmed 5 rights. IV patency established. IV site checked: no pain, redness, or swelling. IV flushed thoroughly pre- and post-medication administration. --03:47 Isrrael Chavez R.N. DISPOSITION / DISCHARGE 02:45 09/18/16. BP: 116/41. HR: 90. RR: 23. O2 saturation: 99% on nasal cannula at 3 liters/minute. Temp: 97.8 F (oral). End tidal CO2: 25 mmHg. Pain level now: 0/10. --03:30 Isrrael Chavez R.N. Departure time: 0300. --03:30 Isrrael Chavez R.N. Departure time: 0300. Admitted to the Critical Care Unit. Transported via stretcher by nurse with monitor, IV, O2 and emergency medications. Report was given. (Tammy RN). Patient's personal items; items were placed in belongings bag and transported with the patient. --03:31 Isrrael Chavez R.N. Locked/Released at 09/18/2016 3:59 by Isrrael Chavez R.N.
--- NOTE | 2016-09-18 01:11 | ED ORDER SUMMARY ---
..... Patient: ES POSADA OrderSheet Formerly [facility] VisitID: [id number] [address] [place] [address] 55y, F Registration Date/Time: 09/17/2016 ORDER SHEET Weight: 59.8 kg (stated) Allergies: Penicillins, Sulfa Antibiotics, Tylenol-hives GENERAL ORDERS: Type & Cross (GI BLEED) (GI BLEED) Urgent (23:36 09/17/2016 AMcQuoid ER Tech1 verbal order read back to Devin TOBIAS) (Ack 23:38 AMcQuoid ER Tech1) (0:06 JRomanelli R.N.) CMP Urgent (23:37 09/17/2016 AMcQuoid ER Tech1 verbal order read back to Devin TOBIAS) (Ack 23:38 AMcQuoid ER Tech1) (0:06 JRomanelli R.N.) CBC w Diff Urgent (23:37 09/17/2016 AMcQuoid ER Tech1 verbal order read back to Devin TOBIAS) (Ack 23:38 AMcQuoid ER Tech1) (0:06 JRomanelli R.N.) Lipase Urgent (23:37 09/17/2016 AMcQuoid ER Tech1 verbal order read back to Devin TOBIAS) (Ack 23:38 AMcQuoid ER Tech1) (0:06 JRomanelli R.N.) Amylase Urgent (23:37 09/17/2016 AMcQuoid ER Tech1 verbal order read back to Devin TOBIAS) (Ack 23:38 AMcQuoid ER Tech1) (0:06 JRomanelli R.N.) PTT Urgent (23:37 09/17/2016 AMcQuoid ER Tech1 verbal order read back to Devin TOBIAS) (Ack 23:38 AMcQuoid ER Tech1) (0:06 JRomanelli R.N.) PT with INR Urgent (23:37 09/17/2016 AMcQuoid ER Tech1 verbal order read back to Devin TOBIAS) (Ack 23:38 AMcQuoid ER Tech1) (0:06 JRomanelli R.N.) CPK Urgent (23:37 09/17/2016 AMcQuoid ER Tech1 verbal order read back to Devin TOBIAS) (Ack 23:38 AMcQuoid ER Tech1) (0:06 JRomanelli R.N.) Troponin-I Urgent (23:37 09/17/2016 AMcQuoid ER Tech1 verbal order read back to Devin TOBIAS) (Ack 23:38 AMcQuoid ER Tech1) (0:06 JRomanelli R.N.) ABG (G) Urgent (23:44 09/17/2016 AMcQuoid ER Tech1 per protocol) (Ack 23:48 AMcQuoid ER Tech1) (0:06 JRomanelli R.N.) UA-Culture if indicated Urgent (23:44 09/17/2016 AMcQuoid ER Tech1 per protocol) (Ack 23:48 AMcQuoid ER Tech1) (0:47 CFalkner R.N.) Acetone, Serum Urgent (23:47 09/17/2016 AMcQuoid ER Tech1 verbal order read back to Devin TOBIAS) (Ack 23:48 AMcQuoid ER Tech1) (0:06 JRomanelli R.N.) Chest 1V Urgent (23:49 09/17/2016 Devin TOBIAS) (Ack 23:51 AMcQuoid ER Tech1) (23:59 AMcQuoid ER Tech1) EKG - ER Stat (23:50 09/17/2016 Devin TOBIAS) (Ack 23:51 AMcQuoid ER Tech1) (0:49 CFalkner R.N.) Young Catheter (23:50 09/17/2016 Devin TOBIAS) (Ack 23:51 AMcQuoid ER Tech1) (0:47 CFalkner R.N.) Blood Culture (No) (N/A) Urgent (00:23 09/18/2016 Devin TOBIAS) (Ack 0:28 AMcQuoid ER Tech1) (0:47 CFalkner R.N.) POC Glucose (Q 30 minutes) (00:23 09/18/2016 Devin TOBIAS) (1:11 JRomanelli R.N.) Lactate, Serum Urgent (00:23 09/18/2016 Devin TOBIAS) (Ack 0:29 AMcQuoid ER Tech1) (0:47 CFalkner R.N.) Phenytoin (Dilantin) Urgent (01:01 09/18/2016 Devin TOBIAS) (Ack 1:07 AMcQuoid ER Tech1) (1:07 AMcQuoid ER Tech1) Transfuse PRBCs (2 units over 3 hours per unit) (01:25 09/18/2016 Devin TOBIAS) (1:37 JRomanelli R.N.) PCT (Procalcitonin) Urgent (01:09/18/2016 Devin TOBIAS) (1:38 AMcQuoid ER Tech1) MEDICATION ORDERS: IV FLUIDS: IV NS : initial bolus none -, then 1000 mL/hr (NOW) (23:42 09/17/2016 Jm R.N. verbal order read back to Devin TOBIAS) (0:12 omanelli R.N.) IV Saline Lock (23:43 09/17/2016 Jm R.N. verbal order read back to Devin TOBIAS) (0:15 JRomanelli R.N.) IV NS : initial bolus 1000 mL (1000 mL/hr), then 1000 mL/hr for X3 (NOW); Urgent (23:50 09/17/2016 Devin TOBIAS) (0:19 JRomanelli R.N.) Insulin Reg Drip IV : initial bolus 10 units, then 3 units/hr for 4h (NOW); Urgent (00:24 09/18/2016 Devin TOBIAS) (0:41 JRomanelli R.N.) Protonix IVP 80mg 80 mg (Mix in NS 20ml over 4min) (00:48 09/18/2016 Devin TOBIAS) (1:09 omanelli R.N.) ORDER SHEET NOTES: [Electronically signed by Jamar Vasquez MD (03:48 09/18/2016)] [Electronically signed by Isrrael Chavez R.N. (03:59 09/18/2016)] [Electronically locked/signed by Isrrael Chavez R.N. (03:59 09/18/2016)]
--- NOTE | 2016-09-18 01:11 | ED CLINICAL REPORT ---
Clinical Report - Physicians/Mid Levels [facility] [address] [place] [address] 09/17/2016 23:03 Patient: ES POSADA Time Seen: 23:08. Arrived- By ambulance. Historian- patient and EMS personnel. History limited by vague historian. HISTORY OF PRESENT ILLNESS Chief Complaint: GI BLEED and "I feel lousy" DKA. This started several days ago and is still present. It was gradual in onset and has been constant. The patient has had difficulty breathing (for several days). She has had black stools (as the patient was being transferred to the stretcher in the emergency room. A large amount of melenic stool was noted on her clothing and the mattress.). Paramedics findings: Hypotension noted. (patient reports that she's had liquid and soft stools for several days she has not paid attention to the color of the stool. She's had some mild diffuse abdominal pain in the recent few weeks. She was evaluated for this here 5 days ago. She says that she is supposed to be taking Lantus 30 units each day as well as oral medications. She says that it has been several weeks since she's had any of these. Paramedics report that her fingerstick glucose level on their monitor was "too high to read."). Recent medical care: The patient was seen recently at this facility. Diagnosis: (peptic ulcer disease). REVIEW OF SYSTEMS No chills, fever, sweats, calf pain or chest pain. No cough, pedal edema, palpitations, nausea or vomiting. No urinary problems. She has had mild difficulty breathing. She has had diabetic symptoms (increased thirst), including fatigue. All systems otherwise negative, except as recorded above. PAST HISTORY Problems: Splenic infarct. Gastritis. Abscess. Abdominal Pain. Vomiting. Chest Pain of GI Origin. Leukocytosis. Hyperlipidemia. Seizure Disorder. Diabetes Mellitus. Hypertension. Additional Surgeries: Cholecystectomy. Knee Surgery. Tonsillectomy. Tubal Ligation. Medications: Lantus Subcutaneous. Allergy pill. Glimepiride Oral (Tablet 2 mg) 1 tablet, BID , last dose . Lisinopril Oral 20 mg, 1/2 tab day . Lovastatin Oral (Tablet 40 mg) 1 tablet, daily. MetFORMIN HCl Oral 1000mg , 2x a day. Phenytoin Oral 100 mg, 2 in am, 3 in HS . Venlafaxine HCl Oral 75 mg, 3x a day. Allergies: Penicillins. Sulfa Antibiotics. Tylenol-hives . SOCIAL HISTORY Current every day heavy tobacco smoker (cigarette)- less than 1 pack per day. No alcohol use. Residence: EMS staff report that her home has no electricity she lives with spouse. Has poor social support. FAMILY HISTORY Denies family medical history. ADDITIONAL NOTES The nursing notes have been reviewed. PHYSICAL EXAM Vital Signs: 09/17/2016 23:09 BP: 77/57. HR: 116. RR: 14. O2 saturation: 99%. Temp: 97 F. Pain level now: 0/10. Have been reviewed. Appearance: ( ketones on her breath). She is pale, ashen and severely dehydrated. ENT: Airway patent. Neck: Normal inspection. No meningeal signs. CVS: Tachycardia. Respiratory: Decreased breath sounds. No rales, wheezes or rhonchi. Abdomen: Soft. Mild tenderness diffusely and in the upper abdomen. No organomegaly. No mass. Back: Normal inspection. Skin: Skin dry. Pallor. Extremities: No lower extremity edema. No calf tenderness. Neuro: Alert. LABS, X-RAYS, AND EKG EKG: Rate: 98. First-degree atrioventricular block. Non-specific ST segment / T wave abnormalities. T wave flattening in lead II, III, V2, V3, V4, V5 and V6. Changes present when compared to prior EKG. (12 Sep 2016). Chest X-ray: No acute disease. The X-rays were interpreted by the radiologist and contemporaneously by me. Laboratory Tests: Magnesium: (JACK: 09/18/2016 02:40) ( MsgRcvd 09/18/2016 03:05) Final results Test Result Flag Units (Reference) MAGNESIUM 1.5 L mg/dL (1.8-2.4) Troponin-I: (JACK: 09/18/2016 02:40) ( MsgRcvd 09/18/2016 03:05) Final results Test Result Flag Units (Reference) TROPONIN I 0.10 ng/mL (0.00-1.5) TROPONIN REFERENCE RANGE:<0.1 NEGATIVE0.1-1.5 INDETERMINANT>1.5 POSITIVE [id number]: (JACK: 09/18/2016 00:00) ( MsgRcvd 09/18/2016 01:58) Final results Test Result Flag Units (Reference) PROCALCITONIN 0.2 ng/mL (0-0.5) PCT Concentration: Interpretation : Risk/option for action PCT <=0.5 ng/mL : Systemic : Low risk forinfection(sepsis): progression to severeis not likely. : systemic infection.Local bacterial : CAUTION-PCT levelsinfection is : below 0.5 ng/mL do notpossible. : exclude an infection,because localizedinfections (withoutsystemic signs) may beassociated with suchlow levels. If PCT ismeasured very earlyafter a bacterialchallenge (usually <6hours), these valuesmay still be low. Inthis case PCT shouldbe re-assessed 6-24hours later. PCT >0.5 and : Systemic infection: Moderate risk for<= 2 ng/mL : (sepsis) is : progression to severepossible, but : systemic infection.other conditions : The patient should beare known to : closely monitoredelevate PCT. : both clinically andby re-assessing PCTwithin 6-24 hours. PCT > 2 ng/mL : Systemic infection: High risk for(sepsis) is likely: progression to severeunless other : systemic infection.causes are known. : PCT >= 10 ng/mL : Important systemic: High likelihood ofinflammatory : severe sepsis orresponse, almost : septic shock.exclusively due to:severe bacterial :sepsis or septic :shock. : Dilantin (Phenytoin): (JACK: 09/18/2016 00:00) ( [facility] 09/18/2016 01:22) Final results Test Result Flag Units (Reference) PHENYTOIN (DILANTIN) 0.5 L ug/mL (10.0-20.0) Lactate, Serum: (JACK: 09/18/2016 00:30) ( [facility] 09/18/2016 01:34) Final results Test Result Flag Units (Reference) LACTIC ACID 6.6 H mmol/L (0.4-2.0) CRITICAL RESULTS CALLEDCalled to BONE GAP 09/18/16 0120Were 2 patient identifiers used? YWas the result read back? Y UA-Culture if indicated: (JACK: 09/17/2016 00:35) ( [facility] 09/18/2016 00:49) Final results Test Result Flag Units (Reference) URINE COLOR YELLOW URINE APPEARANCE CLOUDY URINE GLUCOSE 3+ (NEGATIVE) URINE BILIRUBIN NEGATIVE (NEGATIVE) URINE KETONE NEGATIVE (NEGATIVE) URINE SPECIFIC GRAVITY 1.015 (1.010-1.030) URINE PH 5.5 (5.0-8.0) URINE PROTEIN 1+ (NEGATIVE) URINE UROBILINOGEN 0.2 EU/dL (0.2-1.0) URINE NITRITE NEGATIVE (NEGATIVE) URINE BLOOD NEGATIVE (NEGATIVE) URINE LEUK ESTERASE NEGATIVE (NEGATIVE) URINE RBC 0-1 rbc/hpf (0-1) URINE WBC 3-5 wbc/hpf (0-1) URINE EPITHELIAL CELLS 0-1 EPI/hpf (0-5) URINE BACTERIA FEW (1+) (NONE SEEN) HYALINE CAST 1-3/HPF URINE COMMENT CULT NOT INDICATED URINE CULTURES ARE SET-UP BASED ON THE FOLLOWING CRITERIA:POSITIVE NITRITEPOSITIVE LEUKOCYTE ESTERASEGREATER THAN 10 WHITE BLOOD CELLSMODERATE (2+) OR GREATER BACTERIA CBC w Diff: (JACK: 09/17/2016 23:55) ( MsgRcvd 09/18/2016 00:45) Final results Test Result Flag Units (Reference) WHITE BLOOD COUNT 34.1 #*H K/uL (4.5-11.5) CRITICAL RESULTS CALLEDCalled to TESS JAFFE RN 09/18/16 0021Were 2 patient identifiers used? YESWas the result read back? YES CORRECTED WBC 33.8 K/uL RED BLOOD COUNT 1.84 L M/uL (4.00-5.20) HEMOGLOBIN 5.0 *L gm/dL (12.0-16.0) CRITICAL RESULTS CALLEDCalled to TESS JAFFE RN 09/18/16 0021Were 2 patient identifiers used? YESWas the result read back? YES HEMATOCRIT 15.2 *L % (36.0-46.0) CRITICAL RESULTS CALLEDCalled to TESS JAFFE RN 09/18/16 0021Were 2 patient identifiers used? YESYESWas the result read back? YES MEAN CELL VOLUME 82 fL (80-100) MEAN CORPUSCULAR HGB 27 pg (26-34) MEAN CORPUSCULAR HGB CONC 33 g/dL (31-37) RED CELL DISTRIBUTION WIDTH 16.7 H % (11.6-14.8) PLATELET COUNT 308 K/uL (150-400) NEUTROPHIL % 79.9 H % (50-75) LYMPH % 12.7 L % (25-40) MONO % 7.2 % (3-14) EOSINOPHIL % 0.1 % (0-4) BASOPHIL % 0.1 % (0-2) POLY % 78 H % (50-75) BAND % 5 % (0-8) LYMPH 11 L % (25-40) MONO 6 % (3-14) EOSINOPHIL % 0 % (0-4) BASOPHIL % 0 % (0-2) METAMYELOCYTE % 0 % (0-1) MYELOCYTE 0 % (0-1) NUCLEATED RED BLOOD CELL 1 (0-1) OTHER CELL TYPE 0 POLYCHROMASIA 2+ PT with INR: (JACK: 09/17/2016 23:55) ( [facility]23) Final results Test Result Flag Units (Reference) INR 1.6 H (0.8-1.2) Low Intensity Therapy: INR 1.5-2.0 PT range 18.5-23.1Mod.Intensity Therapy: INR 2.0-3.0 PT range 23.1-31.5High Intensity Therapy: INR 2.5-3.5 PT range 27.4-35.5High Intensity Therapy 2: INR 3.0-4.0 PT range 31.5-39.3 APTT 25 SECONDS (24-34) [id number]: (JACK: 09/17/2016 23:37) ( [facility] 09/18/2016 03:01) Final results Test Result Flag Units (Reference) CALCULATED A1C 9.1 H % (4.5-6.2) The [place] [employer] recommends that aprimary goal of therapy should be a HbA1c of <7% and thatphysicians should reevaluate the treatment regimen inpatients with HbA1c values consistently >8%. ESTIMATED AVERAGE GLUCOSE 214 mg/dL Acetone, Serum: (JACK: 09/17/2016 23:55) ( [facility] 09/18/2016 00:26) Final results Test Result Flag Units (Reference) ACETONE, SERUM QUALITATIVE POSITIVE (NEGATIVE) SMALL CMP: (JACK: 09/17/2016 23:55) ( [facility] 09/18/2016 03:01) Final results Test Result Flag Units (Reference) GLUCOSE 623 *H mg/dL (70-110) CRITICAL RESULTS CALLEDCalled to FLORIN SEVILLA RN 09/18/16 0022Were 2 patient identifiers used? YWas the result read back? Y BUN 74 *H mg/dL (7-18) CRITICAL RESULTS CALLEDCalled to FLORIN SEVILLA RN 09/18/16 0023Were 2 patient identifiers used? YWas the result read back? Y CREATININE 1.7 H mg/dL (0.6-1.3) Estimated GFR 32.92 mL/min Estimated GFR- 39.90 mL/min Note: Persistent reduction over 3 months in eGFR<60 mL/min/1.73 m2 defines CKD. Patients with eGFR values>=60 mL/min/1.73 m2 may also have CKD if evidence ofpersistent proteinuria. Additional information may be foundat www.kidney.org. SODIUM 130 L mmol/L (136-145) POTASSIUM 4.8 mmol/L (3.5-5.1) CHLORIDE 96 L mmol/L (98-107) CARBON DIOXIDE 17 L mmol/L (21-32) CALCIUM 8.0 L mg/dL (8.5-10.1) TOTAL PROTEIN 4.9 L g/dL (6.4-8.2) ALBUMIN 1.9 L g/dL (3.3-5.0) BILIRUBIN, TOTAL 0.2 mg/dL (0.0-1.0) ALKALINE PHOSPHATASE 65 U/L (46-116) AST (SGOT) 17 U/L (15-37) ALT (SGPT) 16 U/L (12-78) LIPASE 378 U/L (73-393) AMYLASE 36 U/L (25-115) CPK 13 L U/L (24-260) TROPONIN I 0.06 ng/mL (0.00-1.5) TROPONIN REFERENCE RANGE:<0.1 NEGATIVE0.1-1.5 INDETERMINANT>1.5 POSITIVE THYROID STIMULATING HORMONE 0.899 uIU/mL (0.30-3.74) ABG: (JACK: 09/17/2016 23:44) ( MsgRcvd 09/17/2016 23:59) Final results Test Result Flag Units (Reference) FIO2 32 % (20-101) ABG MODE OF DELIVERY NC MODIFIED LOU TEST POSITIVE? YES LITERS PER MIN. 3 L/MIN (0-20) ABG PATIENT RESP RATE 20 /MIN ARTERIAL BLOOD GAS SITE RR ARTERIAL BLOOD GAS pH 7.32 L (7.35-7.45) ABG PCO2 31.6 L mmHg (35-45) ABG PO2 150.0 H mmHg (80.0-100.0) ABG BASE EXCESS -9.2 *L mmol/L (-6.0--6.0) ABG HCO3 16.2 L mmol/L (20.0-26.0) ABG TCO2 17.2 L mmol/L (24.0-30.0) ABG LuItF7f 41.1 H mmHg (7.0-14.0) *NOTE: Normal rangeis based on aFIO2 of 21% ABG SAT O2 99.4 % (95.1-100.0) ABG TOTAL HEMOGLOBIN 4.7 *L g/dL (12.0-16.0) ABG O2 HEMOGLOBIN 97.2 % (95.0-100.0) ABG CARBOXYHEMOGLOBIN 1.8 H % (0.5-1.5) ABG METHEMOGLOBIN 0.4 % (0.4-1.5) ABG RHEMOGLOBIN 0.6 % Type & Cross: (JACK: 09/17/2016 23:55) ( MsgRcvd 09/18/2016 03:22) IP Test Result Flag Units (Reference) LEUKOREDUCED PACKED CELLS [id number] AN PC ISSUED 09/18/16 0053 [id number] AN PC XM COMPATIBLE [id number] AN PC XM COMPATIBLE [id number] AN PC ISSUED 09/18/16 0319 PATIENT BLOOD TYPE A Negative Above is a corrected result. Previously reported on ( MsgRcvd 09/18/2016 00:40) as: PATIENT BLOOD TYPE A Negative ANTIBODY SCREEN NEGATIVE Above is a corrected result. Previously reported on ( MsgRcvd 09/18/2016 00:40) as: ANTIBODY SCREEN NEGATIVE . PROGRESS AND PROCEDURES PROCEDURES (as I was working on placement of the patient's central line. I requested thatone of the paramedics present place a right pretibial IO line for access which he did.). Central Line Placement: A catheter checklist and standardized protocol was used for insertion. A central line was placed in the left femoral vein. Time-out completed immediately before the procedure. The risks of the procedure, benefits and alternatives were explained. Consent precluded by urgency of clinical situation. Hand hygiene observed, sterile barrier precautions adhered to (cap, mask, gown, gloves and large sterile sheet) and chlorhexidine skin antisepsis used. Local anesthetic infiltrated. Triple lumen central line placed using Seldinger technique. Good blood return observed. Catheter was secured. Dressing applied. The patient was clinically stable following the procedure. Course of Care: given the patient's history of functional asplenia, her leukocytosis and elevated lactate, we considered initiation of antibiotics. While in the emergency room I discussed this with Dr. Odell and she does not want us to initiate them at this point. Critical care performed (130 minutes). Time is exclusive of separately billable procedures. Time includes: direct patient care, patient reassessment, coordination of patient care, interpretation of data (laboratory data, pulse oximetry, arterial blood gases, chest xrays and prior electrocardiograms), review of patient's medical records, medical consultation and documentation of patient care. Procedures excluded from critical care time: central intravenous line placement. Patient/family counseled. Old medical records reviewed. Disposition: Admitted to the Critical Care Unit. CLINICAL IMPRESSION GI bleed. Diabetic ketoacidosis. Abnormal EKG. Abnormal tests: (indeterminate troponin). (Electronically signed by Jamar Vasquez MD 09/18/2016 3:48)
--- NOTE | 2016-09-18 03:59 | ED MED RECONCILIATION SUMMARY ---
Patient: ES POSADA Medication Reconciliation Report [facility] VisitID: [id number] [address] [place] [address] 55y, F Registration Date/Time: 09/17/2016 Weight: 59.8 kg Height/Length: 62 in. BMI: 24.1 ALLERGIES: Penicillins, Sulfa Antibiotics, Tylenol-hives The patient's Home Medications are listed below: THE FOLLOWING MEDICATIONS NEED TO BE RECONCILED: Allergy pill Glimepiride Oral (2 mg) 1 tablet, BID , last dose: Lantus Subcutaneous Lisinopril Oral 20 mg, 1/2 tab day Lovastatin Oral (40 mg) 1 tablet, daily MetFORMIN HCl Oral 1000mg , 2x a day Phenytoin Oral 100 mg, 2 in am, 3 in HS Venlafaxine HCl Oral 75 mg, 3x a day The source(s) of the original Home Medication information: Not obtained. The following Medications were given to the patient in the Emergency Department: IV NS IV Fluids bolus 0, then 999 mL/hr, administered: 09/17/2016 11:30:00 PM IV NS IV Fluids bolus 0, then 999 mL/hr, administered: 09/17/2016 11:30:00 PM Insulin Reg [IV DRIP] Drip IV bolus 0, then 10 unit 10 unit/hr, administered: 09/18/2016 12:30:00 AM PROTONIX [IVP] IVP 80 mg, administered: 09/18/2016 12:54:00 AM The following Medications were prescribed to the patient: None.
--- NOTE | 2016-09-18 03:59 | ED DISCHARGE INSTRUCTIONS ---
Patient: ES POSADA General Instructions [facility] VisitID: [id number] [address] [place] [address] 55y, F Registration Date/Time: 09/17/2016 GI bleed. Diabetic ketoacidosis. Abnormal EKG. Abnormal tests: (indeterminate troponin). (Electronically signed by Jamar Vasquez MD 09/18/2016 3:48)
--- NOTE | 2016-09-18 03:59 | ED MED RECONCILIATION SUMMARY ---
Patient: ES POSADA Medication Reconciliation Report [facility] VisitID: [id number] [address] [place] [address] 55y, F Registration Date/Time: 09/17/2016 Weight: 59.8 kg Height/Length: 62 in. BMI: 24.1 ALLERGIES: Penicillins, Sulfa Antibiotics, Tylenol-hives The patient's Home Medications are listed below: THE FOLLOWING MEDICATIONS NEED TO BE RECONCILED: Allergy pill Glimepiride Oral (2 mg) 1 tablet, BID , last dose: Lantus Subcutaneous Lisinopril Oral 20 mg, 1/2 tab day Lovastatin Oral (40 mg) 1 tablet, daily MetFORMIN HCl Oral 1000mg , 2x a day Phenytoin Oral 100 mg, 2 in am, 3 in HS Venlafaxine HCl Oral 75 mg, 3x a day The source(s) of the original Home Medication information: Not obtained. The following Medications were given to the patient in the Emergency Department: IV NS IV Fluids bolus 0, then 999 mL/hr, administered: 09/17/2016 11:30:00 PM IV NS IV Fluids bolus 0, then 999 mL/hr, administered: 09/17/2016 11:30:00 PM Insulin Reg [IV DRIP] Drip IV bolus 0, then 10 unit 10 unit/hr, administered: 09/18/2016 12:30:00 AM PROTONIX [IVP] IVP 80 mg, administered: 09/18/2016 12:54:00 AM The following Medications were prescribed to the patient: None.
--- NOTE | 2016-09-18 03:59 | ED MAR SUMMARY ---
..... Medication Administration Record [facility] [address] [place] [address] Patient: ES POSADA Visit ID: [id number] 55y, F Weight: 59.8 kg Height/Length: 62 in BMI: 24.1 ALLERGIES: Penicillins, Sulfa Antibiotics, Tylenol-hives Start 23:30 09/17/2016 Isrrael Chavez R.N. Medication Administered: IV NS (SALINE), Dose: IV Fluids over 60 minute(s), Rate: 999 mL/hr, Dispensed: 1000 mL bag, Site: #1 right foot. Medication Ordered: IV NS : initial bolus none -, then 1000 mL/hr (NOW). Start 23:30 09/17/2016 Isrrael Chavez R.N. Medication Administered: IV NS (SALINE), Dose: IV Fluids over 60 minute(s), Rate: 999 mL/hr, Dispensed: 1000 mL bag, Site: #3 left fem. Medication Ordered: IV NS : initial bolus 1000 mL (1000 mL/hr), then 1000 mL/hr for X3 (NOW); Urgent. Start 00:30 09/18/2016 Isrrael Chavez R.NCarol, Continued Upon Admission 03:00 09/18/2016 Isrrael Chavez R.N. Medication Administered: INSULIN REG [IV DRIP], Dose: 10 unit Drip IV over 30 minute(s), Rate: 10 unit/hr, Dispensed: 100 mL bag, Site: #3 left fem. Medication Ordered: Insulin Reg Drip IV : initial bolus 10 units, then 3 units/hr for 4h (NOW); Urgent. Given 00:54 09/18/2016 Isrrael Chavez R.NCarol Medication Administered: PROTONIX [IVP] (PANTOPRAZOLE SODIUM), Dose: 80 mg IVP over 4 minute(s), Site: #3 left fem. Medication Ordered: Protonix IVP 80mg 80 mg (Mix in NS 20ml over 4min).
--- NOTE | 2016-09-18 03:59 | ED DISCHARGE INSTRUCTIONS ---
Patient: ES POSADA General Instructions [facility] VisitID: [id number] [address] [place] [address] 55y, F Registration Date/Time: 09/17/2016 GI bleed. Diabetic ketoacidosis. Abnormal EKG. Abnormal tests: (indeterminate troponin). (Electronically signed by Jamar Vasquez MD 09/18/2016 3:48)
--- NOTE | 2016-09-18 03:59 | ED MAR SUMMARY ---
..... Medication Administration Record [facility] [address] [place] [address] Patient: ES POSADA Visit ID: [id number] 55y, F Weight: 59.8 kg Height/Length: 62 in BMI: 24.1 ALLERGIES: Penicillins, Sulfa Antibiotics, Tylenol-hives Start 23:30 09/17/2016 Isrrael Chavez R.N. Medication Administered: IV NS (SALINE), Dose: IV Fluids over 60 minute(s), Rate: 999 mL/hr, Dispensed: 1000 mL bag, Site: #1 right foot. Medication Ordered: IV NS : initial bolus none -, then 1000 mL/hr (NOW). Start 23:30 09/17/2016 Isrrael Chavez R.N. Medication Administered: IV NS (SALINE), Dose: IV Fluids over 60 minute(s), Rate: 999 mL/hr, Dispensed: 1000 mL bag, Site: #3 left fem. Medication Ordered: IV NS : initial bolus 1000 mL (1000 mL/hr), then 1000 mL/hr for X3 (NOW); Urgent. Start 00:30 09/18/2016 Isrrael Chavez R.NCarol, Continued Upon Admission 03:00 09/18/2016 Isrrael Chavez R.N. Medication Administered: INSULIN REG [IV DRIP], Dose: 10 unit Drip IV over 30 minute(s), Rate: 10 unit/hr, Dispensed: 100 mL bag, Site: #3 left fem. Medication Ordered: Insulin Reg Drip IV : initial bolus 10 units, then 3 units/hr for 4h (NOW); Urgent. Given 00:54 09/18/2016 Isrrael Chavez R.NCarol Medication Administered: PROTONIX [IVP] (PANTOPRAZOLE SODIUM), Dose: 80 mg IVP over 4 minute(s), Site: #3 left fem. Medication Ordered: Protonix IVP 80mg 80 mg (Mix in NS 20ml over 4min).
--- NOTE | 2016-09-18 07:11 | HISTORY AND PHYSICAL ---
ADMITTED: 09/18/2016 CHIEF COMPLAINT: 1. Altered mental status HISTORY OF PRESENT ILLNESS: This is a 55-year-old female with a history of type 2 diabetes on insulin, who apparently stopped the majority of her medications a year ago when she had an H. pylori infection. She states that she stopped the medication because they are making her sick to her stomach. She has been intermittently taking her medication since that time. Her last dose of her seizure medications was 2016. The patient states that she stopped her insulin 5-6 days ago when she started having nausea and vomiting because she thought the nausea and vomiting was secondary to the insulin. In July the patient was seen in the emergency department for an infection in her groin and received ibuprofen at that time. She states that she finished the ibuprofen in July. She is not taking any NSAIDs during the month of August. However, she did take some aspirin last Wednesday. She denies any alcohol use, but does continue to smoke. She is supposed to be on Protonix, but has only been taking her oral medications intermittently over the past year. The patient started noticing diarrhea over the past week as well; however, did not check and see the color of her stool. She also has been complaining of mild abdominal pain, which she cannot communicate the location of in her abdomen. Emergency room course: The patient was admitted to the emergency department and a left femoral line was placed after an urgent IO was placed in the right pretibial line. This was causing a lot of pain and therefore the IO was removed when the left femoral central line was functional. She then received 3 liters of normal saline. They started her transfusing 1 unit of packed red blood cells and they gave her regular insulin 15 units and then started her on a 3-unit per hour insulin drip. MEDICAL/SURGICAL HISTORY: Type 2 diabetes, cerebrovascular accident, peripheral arterial disease, dyslipidemia, depression, seizure disorder, hypertension. Recent x-ray showed liver cirrhosis, however, etiology is unknown. Evaluation of her liver cirrhosis previously done included an SHAWN which was normal in 2012. In 2016, the patient had negative hepatitis C, hepatitis B, hepatitis B, smooth muscle antibody, mitochondrial antibody, alpha-1 antitrypsin were all normal. She did have an elevation of her ceruloplasmin and 46.1, ruling out Wesley's disease. Recent imaging shows splenic infarct, however, I cannot find evaluation or etiology for this problem. Past surgical history: Laparoscopic cholecystectomy in 2014, T&A, bilateral tubal ligation, left knee surgery secondary to trauma. MEDICATIONS: 1. The patient is unsure of her medications. The following list is what she was doing from memory. She uses the [facility]. ' 2. Lantus 60 units subcutaneous b.i.d. 3. Glimepiride 2 mg p.o. at bedtime. 4. Lisinopril 10 mg half tablet p.o. q.a.m. 5. Lovastatin 40 mg p.o. daily. 6. Metformin 1000 mg p.o. b.i.d. 7. Phenytoin questionably 100 mg p.o. 2 tablets in the a.m., 3 tablets in the afternoon. 8. Protonix 1 tab p.o. b.i.d. ALLERGIES: 1. SHE SAYS THAT SHE HAS BEEN TOLD IN THE PAST TO NOT TAKE IBUPROFEN SECONDARY TO ULCERS. 2. TYLENOL CAUSES HIVES. 3. PENICILLIN. 4. SULFA. SOCIAL HISTORY: The patient lives with her . They have 4 grown children. She has smoked since age 13 and is currently smoking 4 cigarettes a day. She denies any alcohol use; however, does smoke marijuana regularly. FAMILY HISTORY: Dad with an unknown type of cancer and type 2 diabetes. REVIEW OF SYSTEMS: A full 12-point review of systems was negative, except as per HPI and the fact the patient has been having intermittent headaches over the last couple of days. She complains of palpitations and she has bilateral knee and feet pain. PHYSICAL EXAMINATION: VITAL SIGNS: Blood pressure on presentation was 77/57 with a pulse of 116, which has improved to 103/56 with a pulse of 97, respiratory rate of 19, O2 saturation 100 %, temperature is 36.1 degrees Celsius. GENERAL: This is a pale appearing elderly female lying in bed in no apparent distress who is slightly somnolent. HEENT: Pupils are equal, round, and reactive to light with accommodation bilaterally. Extraocular muscles are intact bilaterally. Tympanic membranes are nonerythematous without exudates with cones of light bilaterally. Oropharynx is nonerythematous without exudates and moist. Trachea is midline. There is no JVD. HEART: S1, S2, regular rate and rhythm. No S3, S4, murmurs, gallops, or rubs. LUNGS: Clear to auscultation bilaterally. ABDOMEN: Soft, nontender, nondistended without hepatosplenomegaly or masses. Bowel sounds are active. EXTREMITIES: There is no peripheral edema. The patient has a left femoral central line. LAB/IMAGING: Sodium is 130, potassium 4.8, chloride 96, bicarbonate 17, BUN is 74, creatinine 1.7, glucose of 623, calcium 8.0, total protein 4.9, albumin of 1.9, total bilirubin 0.2, alkaline phosphatase of 65, AST of 17, ALT of 16, lipase of 378. Amylase 36. CPK of 13, troponin 0.06. INR is 1.68, PTT is 25. Lactic acid 6.6. Acetone is positive. UA is negative. White blood cell count at 34.1, hemoglobin of 5, hematocrit of 15.2, platelets of 308, pH of 7.32, pCO2 of 31.6, and bicarbonate of 16.2 and procalcitonin is normal. EKG shows normal sinus rhythm at 98 beats per minute with a QTc of 434 and chest x-ray which was normal. IMPRESSION: 1. This is a 55-year-old female with history of type 2 diabetes and recent finding of liver cirrhosis and splenic infarcts on imaging, presenting to the emergency department with complaints of nausea, vomiting, diarrhea, abdominal pain, weakness and altered mental status secondary to severe anemia from a gastrointestinal bleed. In the context of liver cirrhosis, one must be concerned about esophageal varices, but this is most likely peptic ulcer disease. The reasoning for the pelvic ulcer disease is unknown, except for the fact that the patient is a smoker. 2. Type 2 diabetes. The patient is likely in diabetic ketoacidosis likely secondary to her stopping her insulin 5-6 days ago. 3. As a result of these etiologies, the patient has acute renal failure. PLAN: 1. Fluids, electrolytes, nutrition: The patient will be n.p.o. until her blood sugars and gastrointestinal bleed are improved. Hypomagnesemia. Replacing. 2. Cardiac: Troponin is very slightly elevated on initial lab and the patient is high risk for an myocardial infarction given the severity of her anemia. We will do serial troponins and monitor closely. 3. Pulmonary: Stable. 4. Gastrointestinal: The patient has a gastrointestinal bleed likely secondary to peptic ulcer disease, however, esophageal varices also need to be considered given liver cirrhosis. The patient's blood pressure and pulse have significantly improved with blood transfusion. We will consult surgery for an esophagogastroduodenoscopy in the morning or sooner if she destabilizes. The patient will be started on Protonix and octreotide. The patient was recently diagnosed with liver cirrhosis, likely secondary to nonalcoholic fatty liver disease; however, considering that it is very quickly progressively worsening further evaluation may be needed. I have added on an ANCA, protein electrophoresis, LDH, 5'-nucleotidase, iron studies, gamma globulin, anti-liver and kidney microsomal antibodies and a celiac panel. One may consider doing a liver biopsy in the future to rule out other etiologies. I have also ordered a transabdominal ultrasound with Doppler to rule out Budd-Chiari syndrome. 5. Endocrine: The patient is in diabetic ketoacidosis from stopping her insulin 5-6 days ago. She is on an insulin drip. We will start D5 when she gets to a blood sugar of 200 and continue this until she closes her gap, at which time will change to subcutaneous insulin and stop D5. Hemoglobin A1c is 9.1. 6. Hematology: Severe anemia from a gastrointestinal bleed actively transfusing packed red blood cells. Considering the patient's splenic infarct, one must consider the possibility of hypercoagulability state. I have ordered hypercoagulability labs. 7. Infectious disease: The patient has severe leukocytosis in the setting of systemic inflammatory response syndrome and functional asplenia, we started vancomycin and ceftriaxone empirically; however, I do not think that this is infectious in etiology. Blood cultures and urine culture are pending. Procalcitonin is normal; however, lactic acid is elevated. 8. Neurologic: The patient has a seizure disorder and is supposed to be on phenytoin, which can cause liver cirrhosis, however, she has stopped the medication at the beginning of August and has not had any seizures. The patient states that she has not had seizures years. I will not start any anti-seizure medication at this time; however, may contact her primary care physician and/or her neurologist in the morning for consultation. 9. Lines: The patient has a left femoral line and recently had a right pretibial IO, which has already been removed. We will consult the PICC team in the morning for placement of a line in order to remove femoral central line. This order has already been written. 10. Prophylaxis: The patient is on Protonix for the gastrointestinal bleed, n.p.o. and is on deep venous thrombosis prophylaxis with sequential compression devices as chemical deep venous thrombosis prophylaxis is contraindicated. 11. CODE STATUS: FULL CODE. THIS WAS DISCUSSED WITH THE PATIENT THIS EVENING.
--- NOTE | 2016-09-18 09:28 | DIAGNOSTIC IMAGING REPORT ---
PROCEDURE: US ABDOMEN ULTRASOUND-COMPLETE INDICATION: with doppler, rule out Budd-chiarri TECHNIQUE: Cisneros scale and color Doppler sonographic images of the abdomen were obtained. COMPARISON: CT abdomen/pelvis 09/12/2016 and abdominal ultrasound 08/04/2015. FINDINGS: Liver measures 15.1 cm with coarse echo structure consistent with cirrhosis. Normal hepatopetal flow. Normal patent hepatic veins. Spleen measures 11.4 x 5.3 cm with a scar anteriorly. Pancreas normal as visualized. Cholecystectomy. CBD measures 7.6 mm, unchanged from the CT scan. Moderate atherosclerosis of the aorta but no aneurysm of the visualized aorta. IVC is patent. Right kidney measures 9.6 and is a left kidney 10.1 cm. There is lobulation of both renal contours with mild cortical thinning. IMPRESSION: 1. Cirrhosis with normal hepatopetal flow and normal hepatic veins 2. Cholecystectomy 3. Splenic scar 4. Mild bilateral renal cortical atrophy
--- NOTE | 2016-09-18 11:06 | DIAGNOSTIC IMAGING REPORT ---
PROCEDURE: XR CHEST 1 VIEW INDICATION: PICC PLACEMENT TECHNIQUE: Portable AP view 10:52 a.m. COMPARISON: Chest x-ray 09/17/2016. FINDINGS: Interval placement of a right PICC line with the tip at the right atrial/SVC junction. No pneumothorax. New mild left basilar plate-like atelectasis. Heart and mediastinum are normal. Thorax is normal. IMPRESSION: 1. Right PICC line in satisfactory position 2. Left basilar plate-like atelectasis 3. Results called to respiratory (Michael).
--- NOTE | 2016-09-18 17:46 | Progress Note ---
Late Entry Date/Time Late Entry Date and Time LATE ENTRY Considered: cross coverage Date of visit: 08/29/2006 Time of visit: 1715 Cross coverage. 55-year-old white female with history of DM 2- ketoacidosis, GI bleed on admission, anemia, acute renal failure and liver cirrhosis. Criteria for SIRS with noninfectious origin. Elevated troponin on admission. Patient just arrived from surgery suite. Surgery found a large duodenal ulcer. Patient is receiving a taken. Reviewed the patient. Patient is alert, awake discussed the issues at hand. Patient asking for something to eat. Patient states she is hungry; feels like she can eat something. Called and discussed with General surgery. Recommending nothing by mouth overnight. Patient should be on a high-dose PPI plus Carafate. Plan: 1. Nothing by mouth 2. High-dose Protonix 80 mg twice a day 3. Carafate 1 g every 6 hours. Follow-up with General surgery in the morning, following H&H, troponin, BNP in the a.m. Elevated white count on admission; following serial white counts.
--- NOTE | 2016-09-18 19:20 | CONSULTATION REPORT ---
DATE OF CONSULTATION: 09/18/2016 CHIEF COMPLAINT: 1. Gastrointestinal bleed HISTORY OF PRESENT ILLNESS: The patient is a 55-year-old woman who presented to the hospital with an altered mental status. She has a previous history of gastrointestinal bleed and portal hypertensive gastropathy. She has liver disease of unknown etiology, according to Dr. Franklin. The patient had a CT scan on admission, which demonstrated inflammation around the duodenum consistent with ulcer disease and also had a markedly decreased hematocrit. There is a report of melena. She was having ongoing nausea and vomiting, which she thought was secondary to her insulin for her type 2 diabetes, which she then stopped taking. In the past, the patient was morbidly obese, but apparently has lost a lot of weight. The patient had an infection in her groin and was receiving ibuprofen for pain for that, finishing in July, but she did take some aspirin last Wednesday. She does not use alcohol, but does smoke cigarettes. She was supposed to be on Protonix for gastric problems, but has not been taking it over the past year. She did not notice if her stool was black. MEDICAL/SURGICAL HISTORY: Past medical history: Type 2 diabetes, stroke, peripheral arterial disease, dyslipidemia, depression, seizure disorder, hypertension in past. Past surgeries: Laparoscopic cholecystectomy in 2013, tonsillectomy, bilateral tubal ligation and left knee surgery secondary to trauma. The patient's chart reports that she was negative for hepatitis in the past, had negative antibodies for primary biliary cirrhosis and also had a negative alpha-1 antitrypsin test and normal copper levels. MEDICATIONS: The patient may not be taking these, but are listed in medications are: 1. Lantus 60 units subcutaneous b.i.d. 2. Glimepiride 2 mg p.o. bedtime. 3. Lisinopril 5 mg p.o. q.a.m. 4. Lovastatin 40 mg daily. 5. Metformin 1 g p.o. b.i.d. 6. Phenytoin 2 tablets in a.m., 3 tablets in the afternoon. 7. Protonix 1 tablet b.i.d. ALLERGIES: 1. TYLENOL, CAUSING HIVES. 2. PENICILLIN. 3. SULFA. 4. ULCERATIVE RESPONSE TO NSAIDs. SOCIAL HISTORY: The patient lives with her . She has smoked since age 13. Currently smokes about quarter pack per day. Does not take alcohol use. Uses cannabis regularly. FAMILY HISTORY: Father had cancer and type 2 diabetes. REVIEW OF SYSTEMS: A 12-point review of systems was obtained by questionnaire on admission and is noted by Dr. Odell on admission. PHYSICAL EXAMINATION: GENERAL: The patient is alert and cooperative. She appears to respond appropriately to questioning. She is pale in color and has a general ill-appearing weak appearance. HEENT: Her ears and nose did not demonstrate external lesions. Eyes were equal. There is no icterus. CHEST: Clear to auscultation. HEART: Regular, without murmur or gallop. ABDOMEN: Uncomfortable in the epigastrium with palpation. I could not palpate an enlarged liver. LAB/IMAGING: Tests were reviewed. These demonstrate an initial white count of 34, hemoglobin of 5, hematocrit of 15.2, platelet count 308,000. Amylase was normal. Her troponins were normal on admit, but apparently have come up some, according to Dr. Franklin. IMPRESSION/PLAN: I agreed to perform an upper gastrointestinal endoscopy as requested. Note that this patient is high-risk due to hypertensive disease, as well as ulcer disease and nonsteroidal anti-inflammatory drug or aspirin use. She may have peripheral disease, as well as potentially acute cardiac disease, but we cannot use anticoagulants until we have ascertained the nature of her gastrointestinal bleed. I explained to the patient nature of this procedure and she is familiar with it from previous encounters. She would like to proceed with endoscopy as described to her.
--- NOTE | 2016-09-18 19:23 | OPERATIVE REPORT ---
DATE OF SURGERY: 09/18/2016 SURGEON: Ambrose Maya MD PREOPERATIVE DIAGNOSIS: 1. Gastrointestinal bleed POSTOPERATIVE DIAGNOSIS: 1. Large duodenal ulcer PROCEDURE PERFORMED: 1. Esophagogastroduodenoscopy ANESTHESIA: Total IV general. INDICATIONS: The patient is a 55-year-old woman with evidence of gastrointestinal bleeding, as well as a number of medical problems including possible acute ND, previous stroke, diabetes mellitus, portal hypertension. The patient had initial an hemoglobin of 5 and has been transfused. SURGICAL TECHNIQUE: The patient was taken to the endoscopy suite, where total IV general was administered and patient placed in a left lateral decubitus position. Topical anesthetics were administered and a well-lubricated endoscope was inserted down the esophagus into the stomach. There were clumps of coffee-grounds material in the stomach, but no active bleeding or red blood was seen in this area. The duodenum was entered and there was a large yellow ulcer crater involving about half the circumference of the duodenum. There was no active red bleeding here. There was no adherent clot. No attempt was made to disturb this or go past it. On withdrawal, the same findings were noted. No biopsies were taken and the patient left in stable condition. This patient has a large worrisome deep ulcer, which has a high rebleed risk. Given the circumstance, this will significantly hamper any attempt to treat acute vascular disease.
[2016-09-19] VITALS (21 sets, daily range): BP systolic 84–109; BP diastolic 41–60
--- NOTE | 2016-09-19 12:22 | Progress Note ---
Subjective General Pt. resting comfortably. No clinical cardiac instability. No additional clinical GI bleed ie no hematemesis or ongoing melena. Physical Exam Vital Signs / I&Os Vital Signs Date Time Temp Pulse Resp B/P Pulse O2 O2 Flow FiO2 Ox Delivery Rate 09/19 1100 72 18 84/44 96 09/19 1000 98.6 73 18 108/46 96 09/19 0900 98.8 72 18 95/49 97 09/19 0824 98.8 09/19 0819 72 18 95/56 94 09/19 0710 95/48 09/19 0706 79 18 96 09/19 0558 98.1 74 18 105/60 95 Room Air 09/19 0518 97.9 72 18 90/43 96 Room Air 09/19 0410 97.3 71 16 96/46 94 Room Air 09/19 0315 96.8 75 20 109/49 98 Room Air 09/19 0216 96.8 71 18 103/49 97 Room Air 09/19 0112 73 15 98/41 97 Room Air 09/19 0027 97.3 76 18 107/46 97 Room Air 09/18 2313 98.6 98 20 117/49 98 Room Air 09/18 2200 98.6 84 18 134/75 98 Room Air 09/18 2100 99.1 84 18 143/60 99 Room Air 09/18 2000 2.0 09/18 2000 99.0 88 18 145/58 98 Room Air 09/18 1900 97.9 82 18 147/58 98 Room Air 09/18 1800 98.1 93 18 161/67 99 Nasal Cannula 09/18 1745 98.1 87 19 154/67 98 Nasal Cannula 09/18 1730 97.9 83 19 153/71 98 Nasal Cannula 09/18 1700 97.9 81 19 151/68 98 Nasal Cannula 09/18 1640 81 19 155/70 98 09/18 1635 78 17 137/59 99 09/18 1630 98.4 86 17 127/57 100 09/18 1625 98.4 86 18 121/54 100 09/18 1620 87 17 136/45 99 Nasal 2.0 Cannula 09/18 1616 97.0 87 16 131/89 98 Nasal 2.0 Cannula 09/18 1415 98.2 85 20 136/63 98 09/18 1300 98.2 84 20 133/56 100 Room Air I&O 09/18 0800 09/18 1600 09/19 0000 Intake Total 310 2554 628 Output Total 535 1000 2540 Balance -225 1554 -1912 General Appearance Alert, Oriented X3, Cooperative Abdomen No tenderness Assessment and Plan Problem List 1. Duodenal ulcer Plan stool for h pylori antigen
--- NOTE | 2016-09-19 14:10 | Progress Note ---
Subjective General Pt seen and examined, patient is making enormous leaps in terms of improvement. Her anemia is resolved, her blood sugars have improved immensely and her white blood cell count is down. Patient feels well this morning and does not have much in terms of complaints. Constitutional Denies: Fever, Chills, Sweats, Weakness, Malaise, Other. Eyes Denies: Pain, Vision Change, Conjunctival Inflammation, Eyelid Inflammation, Redness, Other. Respiratory Denies: Cough, Dry, SOB w/exertion, Wheezing, Hemoptysis, Pleuritic Pain, Sputum , Other. Cardiovascular Denies: Chest Pain, Palpitations, Orthopnea, PND, Edema, Light-headedness, Other. Gastrointestinal Denies: Nausea, Vomiting, Abdominal Pain, Diarrhea, Constipation, Melena, Hematochezia, Other. Musculoskeletal Denies: Neck Pain, Shoulder Pain, Arm Pain, Back Pain, Hand Pain, Leg Pain, Foot Pain, Other. Skin Denies: Rash, Lesions, Jaundice, Bruising, Other. Neurological Denies: Weakness, Numbness, Incoordination, Change in speech, Confusion, Seizures, Other. Physical Exam Vital Signs / I&Os Vital Signs Date Time Temp Pulse Resp B/P Pulse O2 O2 Flow FiO2 Ox Delivery Rate 09/19 1318 71 18 92/47 96 09/19 1200 98.4 69 18 89/44 96 09/19 1100 72 18 84/44 96 09/19 1000 98.6 73 18 108/46 96 09/19 0900 98.8 72 18 95/49 97 09/19 0824 98.8 09/19 0819 72 18 95/56 94 09/19 0710 95/48 09/19 0706 79 18 96 09/19 0558 98.1 74 18 105/60 95 Room Air 09/19 0518 97.9 72 18 90/43 96 Room Air 09/19 0410 97.3 71 16 96/46 94 Room Air 09/19 0315 96.8 75 20 109/49 98 Room Air 09/19 0216 96.8 71 18 103/49 97 Room Air 09/19 0112 73 15 98/41 97 Room Air 09/19 0027 97.3 76 18 107/46 97 Room Air 09/18 2313 98.6 98 20 117/49 98 Room Air 09/18 2200 98.6 84 18 134/75 98 Room Air 09/18 2100 99.1 84 18 143/60 99 Room Air 09/18 2000 2.0 09/19 1999 99.0 88 18 145/58 98 Room Air 09/18 1900 97.9 82 18 147/58 98 Room Air 09/18 1800 98.1 93 18 161/67 99 Nasal Cannula 09/18 1745 98.1 87 19 154/67 98 Nasal Cannula 09/18 1730 97.9 83 19 153/71 98 Nasal Cannula 09/18 1700 97.9 81 19 151/68 98 Nasal Cannula 09/18 1640 81 19 155/70 98 09/18 1635 78 17 137/59 99 09/18 1630 98.4 86 17 127/57 100 09/18 1625 98.4 86 18 121/54 100 09/18 1620 87 17 136/45 99 Nasal 2.0 Cannula 09/18 1616 97.0 87 16 131/89 98 Nasal 2.0 Cannula 09/18 1415 98.2 85 20 136/63 98 I&O 09/18 0800 09/18 1600 09/19 0000 Intake Total 310 2554 628 Output Total 535 1000 2540 Balance -225 1554 -1912 General Appearance Alert, Oriented X3, No acute distress HEENT Atraumatic, Moist mucous membranes Lungs Clear to auscultation, Normal air movement Neck Supple, No JVD, No thyromegaly Cardiovascular Regular rate and rhythm, Normal S1 and S2 Abdomen Soft, No tenderness Extremities No edema, Normal pulses, No tenderness Skin No Breakdown Neurological Normal speech, Normal tone, Cranial nerves intact, No lateralizing signs LAB Results Laboratory Tests 09/18 09/19 09/19 1830 0430 1237 Chemistry Plasma Sodium (136 - 145 mmol/L) 137 Plasma Potassium (3.5 - 5.1 mmol/L) 3.1 Plasma Chloride (98 - 107 mmol/L) 104 CO2 (Enzymatic) (21 - 32 mmol/L) 23 BUN (7 - 18 mg/dL) 32 Creatinine (0.6 - 1.3 mg/dL) 0.9 Est GFR ( Amer) (mL/min) >60 Est GFR (Non-Af Amer) (mL/min) >60 Glucose (70 - 110 mg/dL) 295 Plasma Calcium (8.5 - 10.1 mg/dL) 7.8 Troponin (0.00 - 1.5 ng/mL) 0.85 Hematology WBC (4.5 - 11.5 K/uL) 19.4 RBC (4.00 - 5.20 M/uL) 3.76 Hgb (12.0 - 16.0 gm/dL) 10.8 Hct (36.0 - 46.0 %) 33.0 MCV (80 - 100 fL) 88 MCH (26 - 34 pg) 29 RDW (11.6 - 14.8 %) 16.8 Neut % (Auto) (50 - 75 %) 71.6 Lymph % (Auto) (25 - 40 %) 20.7 [place] % (Auto) (3 - 14 %) 6.9 Eos % (Auto) (0 - 4 %) 0.5 Baso % (Auto) (0 - 2 %) 0.3 Plt Count, EDTA (150 - 400 K/uL) 151 PUBS MCHC (31 - 37 g/dL) 33 Toxicology Vancomycin Trough Pending Microbiology Date/Time Procedure - Status Source Growth 09/19 629 Blood Culture - CAN BLOOD Cancelled: ORDERED ON WRONG PT PER ISHA CCU RN 09/19 629 Blood Culture - CAN BLOOD Cancelled: 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 Anemia Plan - secondary to acute blood loss secondary to GI bleed - currenlty patient has a stable RBC level and does not have any drops since her tranfusion - will routinely check hemoglobin 2. DKA (diabetic ketoacidosis) Plan - resolved - pt currently on normal saline with sliding scale coverage - will continue to monitor blood sugars - will initiate home schedule prior to discharge 3. Liver cirrhosis Plan - pt has an established history of liver cirrhosis - pt has no etiology behind this albeit patient has numerous risk factors - will take precautions and dose medications for hepatic clearance 4. ARF (acute renal failure) Plan - Present on admission, most likely secondary to sever hypovolemia - currently renal function has normalized 5. Diabetes Plan - established - will c/w sliding scale coverage 6. Seizure disorder Plan - established - no seizure disorder witnessed since inpatient - will continue with prophylaxis
[2016-09-20 02:35] VITALS: BP 90/44
[2016-09-20 06:59] VITALS: BP 92/46
[2016-09-20 14:50] VITALS: BP 89/49
--- NOTE | 2016-09-20 15:36 | Progress Note ---
Subjective General Pt seen and examined. Patient is currently stable without any evidence of worsening bleeding or blood loss. Patient is currently stable without any deviation in vital signs. Will start diet today. Constitutional Denies: Fever, Chills, Sweats, Weakness, Malaise, Other. Eyes Denies: Pain, Vision Change, Conjunctival Inflammation, Eyelid Inflammation, Redness, Other. Respiratory Denies: Cough, Dry, SOB w/exertion, Wheezing, Hemoptysis, Pleuritic Pain, Sputum , Other. Cardiovascular Denies: Chest Pain, Palpitations, Orthopnea, PND, Edema, Light-headedness, Other. Gastrointestinal Denies: Nausea, Vomiting, Abdominal Pain, Diarrhea, Constipation, Melena, Hematochezia, Other. Genitourinary Denies: Dysuria, Frequency, Incontinence, Hematuria, Retention, Other. Musculoskeletal Denies: Neck Pain, Shoulder Pain, Arm Pain, Back Pain, Hand Pain, Leg Pain, Foot Pain, Other. Neurological Denies: Weakness, Numbness, Incoordination, Change in speech, Confusion, Seizures, Other. Physical Exam Vital Signs / I&Os Vital Signs Date Time Temp Pulse Resp B/P Pulse O2 O2 Flow FiO2 Ox Delivery Rate 09/20 1450 97.7 72 17 89/49 96 Room Air 09/20 0659 97.7 66 18 92/46 95 09/20 0235 98.1 72 18 90/44 94 Room Air 09/19 2231 98.2 71 18 90/42 100 Room Air 0.0 09/19 2027 0.0 09/19 1912 72 18 107/44 94 Room Air 0.0 09/19 1813 71 18 108/52 93 09/19 1714 72 18 105/44 97 Room Air 09/19 1612 98.1 09/19 1610 72 18 104/50 92 I&O 09/19 0800 09/19 1600 09/20 0000 Intake Total 975 0 1626 Output Total 960 198 690 Balance 15 -198 936 General Appearance Alert, Oriented X3, No acute distress HEENT Atraumatic, Moist mucous membranes Lungs Clear to auscultation, Normal air movement Cardiovascular Regular rate and rhythm, No murmurs, gallops, rubs Abdomen Soft, No tenderness, No guarding, No rebound Extremities No clubbing, No edema, Normal pulses, No tenderness Skin No Breakdown, No Significant Lesions Psych/Mental Status Mood normal LAB Results Laboratory Tests 09/20 09/20 3369 0426 Chemistry Plasma Sodium (136 - 145 mmol/L) 139 Plasma Potassium (3.5 - 5.1 mmol/L) 3.0 Plasma Chloride (98 - 107 mmol/L) 107 CO2 (Enzymatic) (21 - 32 mmol/L) 23 BUN (7 - 18 mg/dL) 18 Creatinine (0.6 - 1.3 mg/dL) 0.7 Est GFR ( Amer) (mL/min) >60 Est GFR (Non-Af Amer) (mL/min) >60 Glucose (70 - 110 mg/dL) 168 110 Plasma Calcium (8.5 - 10.1 mg/dL) 8.1 Total Bilirubin (0.0 - 1.0 mg/dL) 0.2 AST (15 - 37 U/L) 17 ALT (12 - 78 U/L) 19 Alkaline Phosphatase (46 - 116 U/L) 65 Total Protein (6.4 - 8.2 g/dL) 5.1 Albumin (3.3 - 5.0 g/dL) 1.9 Hematology WBC (4.5 - 11.5 K/uL) 14.7 RBC (4.00 - 5.20 M/uL) 3.45 Hgb (12.0 - 16.0 gm/dL) 10.0 Hct (36.0 - 46.0 %) 30.1 MCV (80 - 100 fL) 87 MCH (26 - 34 pg) 29 RDW (11.6 - 14.8 %) 16.8 Neut % (Auto) (50 - 75 %) 67.2 Lymph % (Auto) (25 - 40 %) 24.3 [place] % (Auto) (3 - 14 %) 7.1 Eos % (Auto) (0 - 4 %) 1.1 Baso % (Auto) (0 - 2 %) 0.3 Plt Count, EDTA (150 - 400 K/uL) 107 PUBS MCHC (31 - 37 g/dL) 33 Assessment and Plan Problem List 1. GI bleed Plan - secondary to duodenal ulcer - currently on bid ppis - will try clear liquids today - will continue to trend blood work 2. DKA (diabetic ketoacidosis) Plan - resolved - will continue with sliding scale 3. Liver cirrhosis Plan - stable - will adjust medicaiton for hepatic clearance 4. ARF (acute renal failure) Plan - improving - will continue with continuous IV hydration - most likely secondary to dehydration and acute hypovolemia 5. Diabetes Plan - will c/w sliding scale coverage 6. Seizure disorder Plan c/w home medications
[2016-09-20 18:30] VITALS: BP 104/87
[2016-09-20 22:02] VITALS: BP 121/56
[2016-09-21] VITALS (7 sets, daily range): BP systolic 83–173; BP diastolic 43–93
--- NOTE | 2016-09-21 15:37 | Progress Note ---
Subjective General Pt seen and examined. Patient has no complaints at the moment, patient was able to tolerate a clear liquid diet, will advance today. Hemoglobin is rising spontaneously. Constitutional Denies: Fever, Chills, Sweats, Weakness, Malaise, Other. Eyes Denies: Pain, Vision Change, Conjunctival Inflammation, Eyelid Inflammation, Redness, Other. Respiratory Denies: Cough, Dry, SOB w/exertion, Wheezing, Hemoptysis, Pleuritic Pain, Sputum , Other. Cardiovascular Denies: Chest Pain, Palpitations, Orthopnea, PND, Edema, Light-headedness, Other. Gastrointestinal Abdominal Pain. Denies: Nausea, Vomiting, Diarrhea, Constipation, Melena, Hematochezia, Other. Genitourinary Denies: Dysuria, Frequency, Incontinence, Hematuria, Retention, Other. Musculoskeletal Denies: Neck Pain, Shoulder Pain, Arm Pain, Back Pain, Hand Pain, Leg Pain, Foot Pain, Other. Skin Denies: Rash, Lesions, Jaundice, Bruising, Other. Neurological Denies: Weakness, Numbness, Incoordination, Change in speech, Confusion, Seizures, Other. Physical Exam Vital Signs / I&Os Vital Signs Date Time Temp Pulse Resp B/P Pulse O2 O2 Flow FiO2 Ox Delivery Rate 09/21 1405 98.1 78 18 100/51 99 Room Air 0.0 09/21 1023 98.1 75 20 104/52 100 Room Air 0.0 09/21 0502 98.1 74 18 97/49 Room Air 09/21 0223 97.5 71 18 83/43 98 09/20 2202 98.1 78 20 121/56 98 Room Air 09/20 1930 Room Air 09/20 1830 98.4 81 18 104/87 98 Room Air I&O 09/20 0800 09/20 1600 09/21 0000 Intake Total 596 588 3861 Output Total 800 400 575 Balance 65 80 1430 General Appearance Alert, Oriented X3, No acute distress HEENT Atraumatic, Moist mucous membranes Lungs Clear to auscultation Neck No masses, No thyromegaly Cardiovascular Regular rate and rhythm, Normal S1 and S2, No murmurs, gallops, rubs Abdomen Normal bowel sounds, No tenderness Extremities No edema, Normal pulses, Strength = upper ext's, Strength = lower ext's Skin No Breakdown Neurological Normal gait, Normal speech, Sensation intact, Cranial nerves intact , Strength 5/5 x4 ext's LAB Results Laboratory Tests 09/21 0425 Chemistry Plasma Sodium (136 - 145 mmol/L) 140 Plasma Potassium (3.5 - 5.1 mmol/L) 3.7 Plasma Chloride (98 - 107 mmol/L) 109 CO2 (Enzymatic) (21 - 32 mmol/L) 18 BUN (7 - 18 mg/dL) 12 Creatinine (0.6 - 1.3 mg/dL) 0.7 Est GFR ( Amer) (mL/min) >60 Est GFR (Non-Af Amer) (mL/min) >60 Glucose (70 - 110 mg/dL) 97 Plasma Calcium (8.5 - 10.1 mg/dL) 7.9 Total Bilirubin (0.0 - 1.0 mg/dL) 0.2 AST (15 - 37 U/L) 20 ALT (12 - 78 U/L) 19 Alkaline Phosphatase (46 - 116 U/L) 80 Total Protein (6.4 - 8.2 g/dL) 5.0 Albumin (3.3 - 5.0 g/dL) 2.0 Hematology WBC (4.5 - 11.5 K/uL) 13.0 RBC (4.00 - 5.20 M/uL) 3.82 Hgb (12.0 - 16.0 gm/dL) 11.0 Hct (36.0 - 46.0 %) 34.7 MCV (80 - 100 fL) 91 MCH (26 - 34 pg) 29 RDW (11.6 - 14.8 %) 18.6 Gran % (53 - 90) 65.4 Lymph % (Auto) (25 - 40 %) 30.4 [place] % (Auto) (3 - 14 %) 4.2 Plt Count, EDTA (150 - 400 K/uL) 116 PUBS MCHC (31 - 37 g/dL) 32 Assessment and Plan Problem List 1. GI bleed Plan - secondary to duodenal ulcer - pt on appropriate PPI therapy - will advance diet - hemoglobin rising spontaneously -will continue to trend 2. DKA (diabetic ketoacidosis) Plan - resolved - currently sugars are under control - will continue to trend 3. Liver cirrhosis Plan - stable - no evidence of worsening liver function 4. Seizure disorder Plan - no seizure activity noted - will c/w home seizure medications
[2016-09-22] VITALS (7 sets, daily range): BP systolic 16–113; BP diastolic 45–60
--- NOTE | 2016-09-22 16:01 | Progress Note ---
Subjective General Pt seen and examined. Patient was seen to have a drop in her hemoglobin and now is having bright red blood per rectum. Patient is otherwise stable. Constitutional Denies: Fever, Chills, Sweats, Weakness, Malaise, Other. Eyes Denies: Pain, Vision Change, Conjunctival Inflammation, Eyelid Inflammation, Redness, Other. Respiratory Denies: Cough, Dry, SOB w/exertion, Wheezing, Hemoptysis, Pleuritic Pain, Sputum , Other. Cardiovascular Denies: Chest Pain, Palpitations, Orthopnea, PND, Edema, Light-headedness, Other. Gastrointestinal Other (bright red blood per rectum ). Genitourinary Denies: Dysuria, Frequency, Incontinence, Hematuria, Retention, Other. Musculoskeletal Denies: Neck Pain, Shoulder Pain, Arm Pain, Back Pain, Hand Pain, Leg Pain, Foot Pain, Other. Skin Denies: Rash, Lesions, Jaundice, Bruising, Other. Neurological Denies: Weakness, Numbness, Incoordination, Change in speech, Confusion, Seizures, Other. Physical Exam Vital Signs / I&Os Vital Signs Date Time Temp Pulse Resp B/P Pulse O2 O2 Flow FiO2 Ox Delivery Rate 09/22 1433 98.4 83 18 106/47 99 09/22 1052 98.8 86 18 106/56 93 Room Air 09/22 0830 Room Air 09/22 0630 98.4 84 18 113/56 93 Room Air 09/22 0240 98.2 85 18 107/53 96 Room Air 09/21 2222 99.1 81 16 125/56 100 Room Air 09/21 1921 Room Air 09/21 1819 98.4 76 18 115/65 97 I&O 09/21 0800 09/21 1600 09/22 0000 Intake Total 9542 512 7511 Output Total 500 200 750 Balance 1365 -20 1961 General Appearance Alert, Oriented X3, No acute distress HEENT Atraumatic, PERRLA, Moist mucous membranes Lungs Clear to auscultation Cardiovascular Regular rate and rhythm, No murmurs, gallops, rubs Abdomen Soft, No tenderness Extremities No edema, Normal pulses, No tenderness Skin No Breakdown Neurological Normal speech, Sensation intact, Cranial nerves intact, No lateralizing signs Psych/Mental Status Mood normal LAB Results Laboratory Tests 09/22 09/22 UNK 0725 Chemistry Plasma Sodium (136 - 145 mmol/L) 137 Plasma Potassium (3.5 - 5.1 mmol/L) 4.0 Plasma Chloride (98 - 107 mmol/L) 106 CO2 (Enzymatic) (21 - 32 mmol/L) 22 BUN (7 - 18 mg/dL) 9 Creatinine (0.6 - 1.3 mg/dL) 0.8 Est GFR ( Amer) (mL/min) >60 Est GFR (Non-Af Amer) (mL/min) >60 Glucose (70 - 110 mg/dL) 203 Plasma Calcium (8.5 - 10.1 mg/dL) 7.9 Total Bilirubin (0.0 - 1.0 mg/dL) 0.1 AST (15 - 37 U/L) 12 ALT (12 - 78 U/L) 16 Alkaline Phosphatase (46 - 116 U/L) 88 Total Protein (6.4 - 8.2 g/dL) 4.7 Albumin (3.3 - 5.0 g/dL) 1.8 Hematology WBC (4.5 - 11.5 K/uL) Cancelled 11.2 RBC (4.00 - 5.20 M/uL) Cancelled 3.00 Hgb (12.0 - 16.0 gm/dL) Cancelled 8.6 Hct (36.0 - 46.0 %) Cancelled 26.3 MCV (80 - 100 fL) Cancelled 88 MCH (26 - 34 pg) Cancelled 29 RDW (11.6 - 14.8 %) Cancelled 16.9 Neut % (Auto) (50 - 75 %) 72.6 Lymph % (Auto) (25 - 40 %) 17.5 [place] % (Auto) (3 - 14 %) 7.9 Eos % (Auto) (0 - 4 %) 1.6 Baso % (Auto) (0 - 2 %) 0.4 Plt Count, EDTA (150 - 400 K/uL) Cancelled 124 PUBS MCHC (31 - 37 g/dL) Cancelled 33 Toxicology Vancomycin Trough (10.0 - 20.0 ug/mL) 17.4 Assessment and Plan Problem List 1. GI bleed Plan - pt found to have new onset bright red blood per rectum - patient additonally seen to have a 3 point drop in her hemoglobin - will make plans for scope tomorrow after prep - will continue to trend hemoglobin - will repeat value at 8 pm 2. Anemia Plan - new onset secondary to recent gi bleed - will trend hemogram - will plan for scope tomorrow 3. ARF (acute renal failure) Plan - patient had ARF secondary to dehydration and acute blood loss - will continue to monitor bmp - will c/w fluids for the time being given npo status 4. Diabetes Plan - DKA resolved - will switch to sliding scale given npo status - will c/w sliding scale protocol 5. Seizure disorder Plan - currently on seizure medications - no seizure activity noted
--- NOTE | 2016-09-22 16:37 | Consultation Report ---
History Chief Complaint Recurrent upper GI bleed History of Present Illness 55-year-old female admitted to [facility] with a diagnosis of type 2 diabetes/ketoacidosis, GI bleed/anemia, acute renal failure, cirrhosis, and elevated troponin. On admission she was noted have a hemoglobin of 5. Patient immediately was started on transfusion and emergency room and scheduled for upper GI endoscopy. On 09/18/16. She underwent upper GI endoscopy by Dr. Maya and was noted to have a large, near circumferential duodenal ulcer. It was not bleeding at the time. Patient has since received a total of 6 units of packed red blood cells and on 09/21/16. Hemoglobin and hematocrit was 11.0/34.7. This morning, after given a dose of milk of magnesia and going to the bathroom she developed bright red blood per rectum and a hemoglobin and hematocrit was noted to be 8.6/26.3. Her only complaint is some left lower quadrant abdominal discomfort. Denies any epigastric discomfort. Denies any nausea or vomiting. Patient History 1. GI bleed Social History The patient is . Has 4 children. Has been smoking since age 13, at present, smoking at least 4 surgeries per day. She however smokes marijuana on a regular basis. Patient denies drinking alcohol. PAST MEDICAL HISTORY: Status post laparoscopic cholecystectomy. Status post tonsillectomy and adenoidectomy Status post tubal ligation. Status post left knee surgery at age 3. Status post ultrasound biopsy, right breast benign disease. Diagnosis of type 2 diabetes, cirrhosis. FAMILY HISTORY: Father of cancer, unknown etiology, history of type 2 diabetes. Mother at age 84 natural causes. Medications and Allergies Medications Home meds not recorded on CPOE Current Medications Sig/Asya Start time Last Medication Dose Route Stop Time Status Admin Sodium Chloride 1,000 ML ASDIRECTED 09/22 1615 UNV IV Polyethylene Glycol/ 240 ML .[SPLIT DOSE] 09/22 1545 UNV Electrolytes PO Sodium Chloride 1,000 ML ASDIRECTED 09/22 1500 AC 09/22 IV 1507 Insulin Glargine 20 UNITS QHS 09/20 2100 AC 09/21 SC 2037 Ceftriaxone Sodium/ 50 ML DAILY 09/20 0900 AC 09/22 Dextrose IV 0919 Dextrose See Dose Q15MIN PRN 09/19 2130 AC 09/20 Insts (1) IV 1808 Dextrose See Dose Q15MIN PRN 09/19 2130 AC Insts (2) PO Dextrose/Water 1,000 ML ASDIRECTED PRN 09/19 2129 AC IV Glucagon 1 MG Q15MIN PRN 09/19 213 AC IM Lisinopril 10 MG DAILY 09/19 0900 AC 09/22 PO 09 Phenytoin Sodium 200 MG QAM 09/19 0900 AC 09/22 PO 0919 Venlafaxine HCl 75 MG QAM 09/19 0900 AC 09/22 PO 0919 Gabapentin 200 MG QHS 09/18 2100 AC 09/21 PO 2035 Phenytoin Sodium 300 MG QHS 09/18 2100 AC 09/21 PO 2036 Risperidone 1 MG QHS 09/18 2100 AC 09/21 PO 2036 Venlafaxine HCl 150 MG QHS 09/18 2099 AC 09/21 PO 2036 Pantoprazole Sodium 80 MG BID 09/18 1800 AC 09/22 IV 0919 Sucralfate 1 GM Q6H 09/18 1745 AC 09/22 PO 113 Insulin Human Lispro See Dose ACHS 09/18 1630 AC 09/22 Insts (3) SC 1136 Vancomycin HCl See Dose .[PER PHARMACY] 09/18 0230 AC Insts (4) IV Lorazepam 2 MG Q6H PRN 09/18 0215 AC IV Al Hydrox/Mg Hydrox/ 15 ML Q1H PRN 09/18 0200 AC 09/22 Simethicone PO 1248 Atropine Sulfate 0.5 MG Q3MIN PRN 09/18 020 AC IV Lidocaine HCl See Dose ONCE PRN 09/18 0200 AC Insts (5) IV Magnesium Hydroxide 10 ML DAILY PRN 09/18 0200 AC 09/22 PO 1246 Morphine Sulfate 2 MG Q3M PRN 09/18 020 AC IV Nitroglycerin 0.4 MG Q5M PRN 09/18 020 AC SL Ondansetron HCl 4 MG Q6H PRN 09/18 020 AC IV Dose Instructions: (1)Dextrose: 25 OR 50 ML SEE ADMIN CRITERIA (2)Dextrose: 1 OR 2 TUBES SEE ADMIN CRITERIA (3)Insulin Human Lispro: LOW DOSE: ACCUCHECK AND SLIDING SCALE >>To change sliding scale DISCONTINUE this order and enter a NEW order. Thanks< (4)Vancomycin HCl: DOSING PER PHARMACY (5)Lidocaine HCl: 1.5 MG/KG Allergies Coded Allergies: Acetaminophen (HIVES, DYSPNEA 12/24/15) Mushrooms (09/18/16) Penicillin G (09/18/16) Sulfa Antibiotics (09/18/16) Sulfa Drugs (CHILDHOOD 12/24/15) Amitriptyline (hallucinations 09/18/16) Bupropion (bad dreams 09/18/16) Methadone (goofy 09/18/16) Review of Systems Other No history of hepatitis, jaundice, rheumatic fever, heart murmurs, requiring antibiotics, bleeding tendencies, but is positive for blood transfusion. Patient one time was told she had peptic ulcer disease but this diagnosis was never made with upper GI endoscopy or upper GI series. Patient has never undergone colonoscopy. The patient complains of dull left lower quadrant abdominal pain. At present. Remaining review of systems is negative Physical Exam Vital Signs / I&Os Vital Signs Date Time Temp Pulse Resp B/P Pulse O2 O2 Flow FiO2 Ox Delivery Rate 09/22 1433 98.4 83 18 106/47 99 09/22 1052 98.8 86 18 106/56 93 Room Air 09/22 0830 Room Air 09/22 0630 98.4 84 18 113/56 93 Room Air 09/22 0240 98.2 85 18 107/53 96 Room Air 09/21 2222 99.1 81 16 125/56 100 Room Air 09/21 1921 Room Air 09/21 1819 98.4 76 18 115/65 97 I&O 09/21 0800 09/21 1600 09/22 0000 Intake Total 8717 321 1421 Output Total 500 200 750 Balance 1365 -20 1961 General Appearance Alert, Oriented X3, Cooperative, No acute distress HEENT PERRLA, no evidence of scleral icterus Lungs Clear to auscultation Neck Supple, No JVD, No masses, No thyromegaly, No lymphadenopathy Cardiovascular Regular rate and rhythm Abdomen Normal bowel sounds, Soft, No tenderness, No guarding, No rebound, No masses, No hepatosplenomegaly Extremities No cyanosis, No clubbing, No edema Skin warm and dry Neurological Strength 5/5 x4 ext's Psych/Mental Status Mood normal LAB Results Laboratory Tests 09/22 09/22 UNK 0725 Chemistry Plasma Sodium (136 - 145 mmol/L) 137 Plasma Potassium (3.5 - 5.1 mmol/L) 4.0 Plasma Chloride (98 - 107 mmol/L) 106 CO2 (Enzymatic) (21 - 32 mmol/L) 22 BUN (7 - 18 mg/dL) 9 Creatinine (0.6 - 1.3 mg/dL) 0.8 Est GFR ( Amer) (mL/min) >60 Est GFR (Non-Af Amer) (mL/min) >60 Glucose (70 - 110 mg/dL) 203 Plasma Calcium (8.5 - 10.1 mg/dL) 7.9 Total Bilirubin (0.0 - 1.0 mg/dL) 0.1 AST (15 - 37 U/L) 12 ALT (12 - 78 U/L) 16 Alkaline Phosphatase (46 - 116 U/L) 88 Total Protein (6.4 - 8.2 g/dL) 4.7 Albumin (3.3 - 5.0 g/dL) 1.8 Hematology WBC (4.5 - 11.5 K/uL) Cancelled 11.2 RBC (4.00 - 5.20 M/uL) Cancelled 3.00 Hgb (12.0 - 16.0 gm/dL) Cancelled 8.6 Hct (36.0 - 46.0 %) Cancelled 26.3 MCV (80 - 100 fL) Cancelled 88 MCH (26 - 34 pg) Cancelled 29 RDW (11.6 - 14.8 %) Cancelled 16.9 Neut % (Auto) (50 - 75 %) 72.6 Lymph % (Auto) (25 - 40 %) 17.5 [place] % (Auto) (3 - 14 %) 7.9 Eos % (Auto) (0 - 4 %) 1.6 Baso % (Auto) (0 - 2 %) 0.4 Plt Count, EDTA (150 - 400 K/uL) Cancelled 124 PUBS MCHC (31 - 37 g/dL) Cancelled 33 Toxicology Vancomycin Trough (10.0 - 20.0 ug/mL) 17.4 Imaging Recent ultrasound of her abdomen findings consistent with cirrhosis Assessment and Plan Problem List 1. GI bleed Plan Patient apparently has eaten lunch. Did not appear to be in extremis. Vital signs stable. We will start bowel prep and schedule patient for upper GI endoscopy, colonoscopy on 09/23/16. However in the evening if patient begins to bleed again, we will schedule her for emergent upper GI endoscopy and possibly unprepped colonoscopy. The risks and benefits of EGD/colonoscopy have been explained to the patient. She understands and agrees to proceed. We will schedule her appropriately. We will continue to follow hemoglobin and hematocrit. Will transfuse as necessary.
[2016-09-23] VITALS (35 sets, daily range): BP systolic 80–128; BP diastolic 36–54
--- NOTE | 2016-09-23 03:01 | Progress Note ---
Subjective General 55-year-old female admitted with GI bleed/anemia who has undergone upper GI endoscopy and was noted to have a near circumferential duodenal ulcer that was not bleeding at the time. Appeared to be stable post endoscopy. Since her hospitalization, she has been transfused 6 units of packed red blood cells. I was called approximately 2:00 this morning stating that the patient was hypotensive and that her midnight, hematocrit was 18. On 21 Sep 2016 after undergoing 6 unit transfusion her hematocrit was 34.7. Earlier today, 23 Sep 2016. Her hematocrit had drifted down to 26.3. No transfusions were ordered at that time. Proximally, 8 hours later, her hematocrit was checked and noted to be 24.2. No transfusions were ordered. Her pressure began to dwindle down and then around midnight , her systolic pressure dropped into the 80s and a repeat hematocrit was 18.0. She was ordered 2 units of packed red blood cells to be transfused. A double-lumen PICC line was placed , supplemented an 18-gauge line that was running already. Constitutional Weakness. Physical Exam Vital Signs / I&Os Vital Signs Date Time Temp Pulse Resp B/P Pulse O2 O2 Flow FiO2 Ox Delivery Rate 09/23 0239 98.4 85 85/40 97 Nasal 2.0 Cannula 09/23 0232 98.4 85 14 85/40 100 Nasal 2.0 Cannula 09/23 0215 85 16 91/42 99 Nasal 2.0 Cannula 09/23 0202 98.4 87 16 80/38 100 Nasal 2.0 Cannula 09/23 0145 98.6 84 16 90/40 99 Nasal 2.0 Cannula 09/23 0122 98.6 92 16 90/40 97 Nasal 2.0 Cannula 09/23 0115 94 89/41 09/22 2227 99.0 100 16 94/45 100 Room Air 0.0 09/22 2155 96/60 05 1844 98.4 93 16 96/57 100 05 1433 98.4 83 18 106/47 99 05 1052 98.8 86 18 106/56 93 Room Air 09/22 0830 Room Air 09/22 0630 98.4 84 18 113/56 93 Room Air I&O 09/22 0800 09/22 1600 09/23 0000 Intake Total 1118 1036 1800 Output Total 898 133 7377 Balance 668 736 100 General Appearance Alert, Oriented X3, Cooperative, No acute distress Lungs Clear to auscultation Cardiovascular Regular rate and rhythm Abdomen Soft, No tenderness Skin pale Neurological Normal speech, No lateralizing signs Psych/Mental Status Mental status normal LAB Results Laboratory Tests 09/22 Chemistry Plasma Sodium (136 - 145 mmol/L) 137 Plasma Potassium (3.5 - 5.1 mmol/L) 4.0 Plasma Chloride (98 - 107 mmol/L) 106 CO2 (Enzymatic) (21 - 32 mmol/L) 22 BUN (7 - 18 mg/dL) 9 Creatinine (0.6 - 1.3 mg/dL) 0.8 Est GFR ( Amer) (mL/min) >60 Est GFR (Non-Af Amer) (mL/min) >60 Glucose (70 - 110 mg/dL) 203 Plasma Calcium (8.5 - 10.1 mg/dL) 7.9 Total Bilirubin (0.0 - 1.0 mg/dL) 0.1 AST (15 - 37 U/L) 12 ALT (12 - 78 U/L) 16 Alkaline Phosphatase (46 - 116 U/L) 88 Total Protein (6.4 - 8.2 g/dL) 4.7 Albumin (3.3 - 5.0 g/dL) 1.8 Hematology WBC (4.5 - 11.5 K/uL) 11.2 Cancelled 10.1 RBC (4.00 - 5.20 M/uL) 3.00 Cancelled 2.08 Hgb (12.0 - 16.0 gm/dL) 8.6 Cancelled 7.9 6.0 Hct (36.0 - 46.0 %) 26.3 Cancelled 24.2 18.0 MCV (80 - 100 fL) 88 Cancelled 86 MCH (26 - 34 pg) 29 Cancelled 29 RDW (11.6 - 14.8 %) 16.9 Cancelled 17.0 Neut % (Auto) (50 - 75 %) 72.6 68.2 Lymph % (Auto) (25 - 40 %) 17.5 22.4 [place] % (Auto) (3 - 14 %) 7.9 7.7 Eos % (Auto) (0 - 4 %) 1.6 1.4 Baso % (Auto) (0 - 2 %) 0.4 0.3 Plt Count, EDTA (150 - 400 K/uL) 124 Cancelled 128 PUBS MCHC (31 - 37 g/dL) 33 Cancelled 33 Toxicology Vancomycin Trough (10.0 - 20.0 ug/mL) 17.4 Assessment and Plan Problem List 1. GI bleed Plan Recurrent upper GI bleed. Recommend in addition to the 2 units that has been ordered, that 2 units of FFP be administered, 25 g of salt poor albumin to be administered, Tranexamic acid 1000 mg in 1 L normal saline to run at 240 mL per hour, starting a second 18-gauge IV, and Young catheter to monitor urine output. Would also recommend a more vigorous transfusion schedule. Repeat PT/INR, PTT at next blood draw.
--- NOTE | 2016-09-23 03:59 | Progress Note ---
Subjective General Note Date: 09/23/2016 Admission Date: 09/18/2016 Hospital Day: 7 PCP: Dr. Mendoza Status: CCU Advanced Directive: Full code Room: 302 Patient seen and examined at bedside. He is talkative alert with pallor. Symptomatic with dizziness associated hypotension. Pt. so far is received 2 units plus 1 FFP and one bag Tranexamic acid. General surgery has been called and has seen patient. Patient now has vigorous transfusion orders placed. Multiple bloody stools during the day shift, surgery was called for consult planned to have her seen in the a.m. for scoping procedure. Due to dramatic drop in her hemoglobin from 7.9 @ 2200 to <6.0 0030; initiated protocol for upper gi bleed. GS as consulted and made recommendations on blood transfusions. Planning to review for potential scope once her bleeding is under control. Constitutional Weakness. Denies: Fever. Respiratory Denies: Wheezing. Cardiovascular Light-headedness. Gastrointestinal Hematochezia. Skin Other (pallor). Neurological Other (numbness of the feet bilateral). Physical Exam Vital Signs / I&Os Vital Signs Date Time Temp Pulse Resp B/P Pulse O2 O2 Flow FiO2 Ox Delivery Rate 09/23 0357 98.1 86 16 96/54 97 Nasal 2.0 Cannula 09/23 0346 84 16 81/53 98 Nasal 2.0 Cannula 09/23 0328 98.2 85 16 88/44 99 Nasal 2.0 Cannula 09/23 0315 85 16 84/36 98 Nasal 2.0 Cannula 09/23 0258 98.4 86 14 101/50 98 Nasal 2.0 Cannula 09/23 0239 98.4 85 85/40 97 Nasal 2.0 Cannula 09/23 0232 98.4 85 14 85/40 100 Nasal 2.0 Cannula 09/23 0215 85 16 91/42 99 Nasal 2.0 Cannula 09/23 0202 98.4 87 16 80/38 100 Nasal 2.0 Cannula 09/23 0145 98.6 84 16 90/40 99 Nasal 2.0 Cannula 09/23 0122 98.6 92 16 90/40 97 Nasal 2.0 Cannula 09/23 0115 94 89/41 09/22 2227 99.0 100 16 94/45 100 Room Air 0.0 09/22 2155 96/60 09/22 1844 98.4 93 16 96/57 100 09/22 1433 98.4 83 18 106/47 99 09/22 1052 98.8 86 18 106/56 93 Room Air 09/22 0830 Room Air 09/22 0630 98.4 84 18 113/56 93 Room Air I&O 09/22 0800 09/22 1600 09/23 0000 Intake Total 1118 1036 1900 Output Total 345 905 5969 Balance 668 736 200 General Appearance Oriented X3, Cooperative, Mild distress, talking in full sentences, receiving blood products now. HEENT EOMI Lungs Normal air movement Cardiovascular murmur, vigorous heartbeat Abdomen Soft, generalized tenderness Hematochezia Extremities Normal pulses Psych/Mental Status Mood normal LAB Results Laboratory Tests 09/22 Chemistry Plasma Sodium (136 - 145 mmol/L) 137 Plasma Potassium (3.5 - 5.1 mmol/L) 4.0 Plasma Chloride (98 - 107 mmol/L) 106 CO2 (Enzymatic) (21 - 32 mmol/L) 22 BUN (7 - 18 mg/dL) 9 Creatinine (0.6 - 1.3 mg/dL) 0.8 Est GFR ( Amer) (mL/min) >60 Est GFR (Non-Af Amer) (mL/min) >60 Glucose (70 - 110 mg/dL) 203 Plasma Calcium (8.5 - 10.1 mg/dL) 7.9 Total Bilirubin (0.0 - 1.0 mg/dL) 0.1 AST (15 - 37 U/L) 12 ALT (12 - 78 U/L) 16 Alkaline Phosphatase (46 - 116 U/L) 88 Total Protein (6.4 - 8.2 g/dL) 4.7 Albumin (3.3 - 5.0 g/dL) 1.8 Hematology WBC (4.5 - 11.5 K/uL) 11.2 Cancelled 10.1 RBC (4.00 - 5.20 M/uL) 3.00 Cancelled 2.08 Hgb (12.0 - 16.0 gm/dL) 8.6 Cancelled 7.9 6.0 Hct (36.0 - 46.0 %) 26.3 Cancelled 24.2 18.0 MCV (80 - 100 fL) 88 Cancelled 86 MCH (26 - 34 pg) 29 Cancelled 29 RDW (11.6 - 14.8 %) 16.9 Cancelled 17.0 Neut % (Auto) (50 - 75 %) 72.6 68.2 Lymph % (Auto) (25 - 40 %) 17.5 22.4 [place] % (Auto) (3 - 14 %) 7.9 7.7 Eos % (Auto) (0 - 4 %) 1.6 1.4 Baso % (Auto) (0 - 2 %) 0.4 0.3 Plt Count, EDTA (150 - 400 K/uL) 124 Cancelled 128 PUBS MCHC (31 - 37 g/dL) 33 Cancelled 33 Toxicology Vancomycin Trough (10.0 - 20.0 ug/mL) 17.4 Assessment and Plan Problem List 1. GI bleed Plan Blood loss anemia; with associated bright red blood per rectum. No emesis Patient has overnight had a 3 point drop in her hemoglobin. The patient transfusion protocol general surgeries colon. Potential scoping procedure in a.m. Transfusing 2 units +4 to follow. We'll keep 4 units a minus blood on hold. General surgery is scoped once; planing to scope again to review the duodenal ulcer or any other mucosal bleeding No varicosities noted during the last scoping procedure. 2. Anemia Plan Profoundly anemic on admission. Stabilized with controlled blood loss. Seen over the past 12-24 hours with predictable drop in her hematocrit and with blood and bright red blood per rectum. Now on a vigorous transfusion schedule. 3. Liver cirrhosis Plan Patient has history of cirrhotic liver disease. Patient at risk for hypotension episodes in addition to, blood loss anemia. No varicosities seen on previous scoping procedure. Cirrhosis with normal hepatopetal flow and normal hepatic veins seen as seen on ultrasounding managing 09/12/2016. Continue to monitor. 4. ARF (acute renal failure) Plan ARF on admission; now stable with normal kidney function. 09/22/2016 CMP showing a BUN of 9 creatinine of 0.8 with a GFR greater than 60. Patient with profound blood loss on multiple occasions. Most recently overnight. We'll continue to monitor and follow. Patient hypotensive overnight. Continue to monitor kidney function. 5. Diabetes Plan Patient with history of DKA. She was in fact in DKA on admission. Patient so far is stabilized her blood sugars. She is on an moderate sliding insulin scale. Continue to give daily doses of Lantus at 30% of her normal daily dose. Monitor blood sugars every 6 hours. 6. Duodenal ulcer Plan He was seen on admission with a duodenal ulcer. This is scoped and looked through general surgery. No bleeding was recognized during the procedure. Patient however has had now recurrent blood loss per rectum. Plans for General surgery to review the duodenal ulcer and surrounding mucosa. Patient is on a vigorous transfusion scheduled this time. Current status: Unstable guarded Anticipated discharge date: 3-4 days Anticipated discharge placement: Arrangements for home discharge and discharge planning Patient care time: Time spent in chart review, patient interview, physical exam, CPOE, and care documentation: 30 minutes Visit to patient today: 3 Complexity of care: High complexity E&M Codes Rounding: Inpt-High/[id number]
--- NOTE | 2016-09-23 13:17 | Operative Report ---
Operative Report Date of Surgery: 09/23/16 Preoperate Diagnosis: upper GI bleed/duodenal ulcer Postoperative Diagnosis: operative GI bleed/duodenal ulcer Surgeon: López Zuñiga MD [employer] Surgeon: none Procedure Performed: Upper GI endoscopy with injection sclerotherapy of duodenal ulcer Anesthesia: TIVA Indications: 55-year-old female recently underwent upper GI endoscopy noted to have duodenal ulcer. Currently this morning. Blood pressure and hematocrit and required 4 unit packed red blood cells. transfusion, and 2 units of fresh frozen plasma. Scheduled for upper GI endoscopy. FINDINGS: No gross evidence of bleeding. In the duodenum. There is an exposed "[place]" ulcer. The area surrounding the vessel was injected with a total of 5cc's of hypertonic saline//epinephrine. Surgical Technique: 55-year-old female brought to the operating room. The patient was placed in the left lateral decubitus position. Patient was administered TIVA by anesthesia. After proper anesthesia had taken effect, the patient's posterior pharynx was sprayed using Cetacaine spray. An Olympus fiberoptic video flexible upper GI endoscope was easily passed on the patient's posterior pharynx, esophagus easily intubated. The scope passed easily down the esophagus through the EG junction which was approximately 35 cm from the dental incisors. There is no evidence of old blood and fresh blood in the gastric lumen. The scope passed easily intubated. Duodenal bulb where the aforementioned findings noted. Patient was noted to have a very shaggy-based ulcer as well as a pulsatile vessel noted. Circumferentially around the pulsatile vessel. The proximal and 5 cc of hypertonic saline and epinephrine were injected. There was a considerable amount of oozing postoperatively. After copious irrigation, the bleeding appeared to subside. With good clotting noted. The scope was withdrawn. Procedure well. Was transferred to recovery room in stable condition. There no intraoperative anesthetic outpatient.
[2016-09-24] VITALS (15 sets, daily range): BP systolic 94–151; BP diastolic 37–64
--- NOTE | 2016-09-24 06:39 | Progress Note ---
Subjective General Note Date: 09/24/2016 Admission Date: 09/18/2016 Hospital Day: 7 PCP: Dr. Mendoza Status: AC Advanced Directive: Full code Room: 302 Patient seen at bedside this morning. Patient is easily awakened. She reports that she feels cold. Patient is aware of what she is dealing with. Active erosive changes in the mucosal layer of the duodenum. There is a pulsating vessel in the duodenum. Constitutional Weakness. Respiratory Denies: Dry, SOB w/exertion, Wheezing. Cardiovascular Denies: Palpitations. Gastrointestinal Other (fullness). Musculoskeletal Denies: Arm Pain. Skin Denies: Lesions. Neurological Denies: Numbness, Incoordination. Physical Exam Vital Signs / I&Os Vital Signs Date Time Temp Pulse Resp B/P Pulse O2 O2 Flow FiO2 Ox Delivery Rate 09/24 0559 78 16 130/56 96 Nasal 2.0 Cannula 09/24 0515 99.0 76 14 131/53 97 Nasal 2.0 Cannula 09/24 0413 86 14 151/64 96 Nasal 2.0 Cannula 09/24 0318 79 14 140/60 97 Nasal 2.0 Cannula 09/24 0215 81 16 138/56 95 Nasal 2.0 Cannula / 0112 56 121/46 98 Nasal Cannula / 0052 99.0 06/ 0028 81 117/38 97 Nasal 2.0 Cannula 09/23 2300 128/47 09/23 2203 78 16 119/54 97 Nasal 2.0 Cannula 09/23 2100 79 16 122/53 96 Nasal 2.0 Cannula 09/23 2050 Nasal 2.0 Cannula 09/23 2012 83 16 124/49 97 Nasal 2.0 Cannula 09/23 1933 80 09/23 1909 98.8 79 16 110/49 97 Nasal 2.0 Cannula 09/23 1812 83 16 116/43 96 Nasal 2.0 Cannula 09/23 1700 78 16 107/52 98 Nasal 2.0 Cannula 09/23 1612 80 16 124/54 90 09/23 1506 78 16 109/45 96 09/23 1430 82 16 121/50 95 09/23 1416 99.0 80 16 116/46 98 nc 2.0 09/23 1352 84 14 117/50 100 05 1344 78 16 130/50 100 09/23 1339 79 13 98/58 100 09/23 1330 77 13 104/54 100 09/23 1320 78 13 98/58 100 09/23 1310 94 19 123/58 100 09/23 1305 97.2 90 15 130/58 99 nc 09/23 1104 98.4 78 18 112/51 100 Nasal 2.0 Cannula 09/23 1015 98.8 80 18 106/51 95 Nasal 2.0 Cannula 09/23 0915 98.4 82 16 97/40 99 Nasal 2.0 Cannula 09/23 0845 98.4 81 16 98/42 97 Nasal 2.0 Cannula 09/23 0832 98.4 86 18 101/44 98 Nasal 2.0 Cannula 09/23 0820 98.2 82 16 100/41 100 Nasal 2.0 Cannula 09/23 0800 2.0 09/23 0745 2.0 09/23 0742 98.4 84 18 106/52 96 Nasal 2.0 Cannula 09/23 0721 98.2 81 16 104/49 100 Nasal 2.0 Cannula I&O 09/23 0800 09/23 1600 09/24 0000 Intake Total 2952 660 1092 Output Total 685 1203 1325 Balance 2267 -543 -233 General Appearance Mild distress HEENT EOMI Lungs Clear to auscultation, Normal air movement Cardiovascular Normal S1 and S2, No murmurs, gallops, rubs Extremities Normal pulses, No tenderness Psych/Mental Status Mood normal LAB Results Laboratory Tests 09/230 Hematology Hgb (12.0 - 16.0 gm/dL) 8.9 Hct (36.0 - 46.0 %) 27.2 Assessment and Plan Problem List 1. GI bleed Plan Trending H&H over time. Caio bleeding or concern for blood loss anemia in the past 24-36 hours. No meals at all lobe by mouth. Erosive changes in the duodenum with an exposed vessel 2. Anemia Plan Anemia from blood loss. The hemoglobin and hematocrit is trending upward. No blood transfusion over the past 24 hours. 3. Liver cirrhosis Plan History of liver liver cirrhosis Esophageal varices noted. Portal pressures are normal. No ascitic accumulation. Last ultrasound liver done on admission. 4. ARF (acute renal failure) Plan Patient is returned to normal kidney function. 5. Diabetes Plan Plan to monitoring diabetic protocol. Plan to start patient on TPN today. This will be valuable for maintaining adequate sugars support. On the meantime may need to tighten up on the diabetic control 6. Duodenal ulcer Plan Duodenal ulcer is exposing a vessel. Continue the octreotide drip along the pantoprazole. Abdomen appropriate nutritional support. Daily Carafate. Current status: guarded/unstable Anticipated discharge date: 3-4 days Anticipated discharge placement: Arrangements for home discharge and discharge planning Patient care time: Time spent in chart review, patient interview, physical exam, CPOE, and care documentation: 30 minutes Visit to patient today:1 Complexity of care: High complexity E&M Codes Rounding: Inpt-High/[id number]
[2016-09-25] VITALS (30 sets, daily range): BP systolic 78–126; BP diastolic 26–73
--- NOTE | 2016-09-25 09:51 | Progress Note ---
Subjective General Note Date: September 25, 2016 Admission Date: September 18, 2016 Hospital Day: 8 PCP: John Mendoza M.D. Status: Inpatient, CCU Advanced Directive: FULL CODE Room: 302 Admission History: The patient is a 55-year-old white female with a significant past med history of type 2 diabetes mellitus, hypertension, hypercholesterolemia, seizure disorder, cirrhosis, who presented to [facility] emergency department on the day of admission secondary to complaints of altered mental status. [facility] ER evaluation was consistent with upper GI bleed with associated anemia, cirrhosis, altered mental status, type 2 diabetes mellitus. Secondary to the above, the patient was admitted by Erlinda Odell M.D. for further evaluation and treatment. For other history present illness, past medical history, family history, social history, review of systems, and admission physical examination please see the patient's history and physical examination and ER visit note in the patient's medical record. Subjective: The patient states she is doing well today. Persistent mild abdominal pain. No history of nausea or vomiting. No melena/medical he Z overnight. Patient requests: No specific Medications and Allergies Medications Current Medications Sig/Asya Start time Last Medication Dose Route Stop Time Status Admin Sodium Chloride 250 ML .[FOR TRANSFUSION] 09/25 0500 AC IV 09/25 2330 Amino Acids/ 1,000 ML .BY DURATION 09/24 1500 AC 09/25 Electrolytes/Dextrose IV 0927 Fat Emulsion 250 ML Q24H 09/24 1500 AC 09/24 Intravenous IV 1620 Multivitamins 10 ML .BY DURATION 09/24 1500 AC 09/25 Trace Metals 1 ML IV 0935 Amino Acids/ 1,000 ML Electrolytes/Dextrose Insulin Glargine 15 UNITS QHS 09/23 2100 AC 09/24 SC 2255 Sucralfate 1 GM ACHS 09/23 1630 AC 09/25 PO 0843 Octreotide Acetate 300 MCG Q12H 09/23 1515 AC 09/25 Dextrose/Water 250 ML IV 0421 Insulin Human Lispro See Dose Q6HR 09/23 1200 AC 09/25 Insts (1) SC 0607 Pantoprazole Sodium 80 MG Q12HR 09/23 0900 AC 09/25 IV 0843 Ceftriaxone Sodium/ 50 ML DAILY 09/20 0900 AC 09/25 Dextrose IV 0842 Dextrose See Dose Q15MIN PRN 09/19 2130 AC 09/20 Insts (2) IV 1808 Dextrose See Dose Q15MIN PRN 09/19 2130 AC Insts (3) PO Glucagon 1 MG Q15MIN PRN 09/19 213 AC IM Lisinopril 10 MG DAILY 09/19 09 AC 09/24 PO 1033 Phenytoin Sodium 200 MG QAM 09/19 0900 AC 09/25 PO 0842 Venlafaxine HCl 75 MG QAM 09/19 09 AC 09/25 PO 0934 Gabapentin 200 MG QHS 09/18 2099 AC 09/24 PO 2123 Phenytoin Sodium 300 MG QHS 09/18 2100 AC 09/24 PO 2123 Risperidone 1 MG QHS 09/18 2099 AC 09/22 PO 2243 Venlafaxine HCl 150 MG QHS 09/18 2099 AC 09/24 PO 212 Lorazepam 2 MG Q6H PRN 09/18 0215 AC 09/24 IV 1536 Al Hydrox/Mg Hydrox/ 15 ML Q1H PRN 09/18 0200 AC 09/22 Simethicone PO 1248 Magnesium Hydroxide 10 ML DAILY PRN 09/18 020 AC 09/22 PO 1246 Morphine Sulfate 2 MG Q3M PRN 09/18 020 AC IV Nitroglycerin 0.4 MG Q5M PRN 09/18 020 AC SL Ondansetron HCl 4 MG Q6H PRN 09/18 020 AC 09/23 IV 0201 Dose Instructions: (1)Insulin Human Lispro: LOW DOSE: ACCUCHECK AND SLIDING SCALE >>To change sliding scale DISCONTINUE this order and enter a NEW order. Thanks< (2)Dextrose: 25 OR 50 ML SEE ADMIN CRITERIA (3)Dextrose: 1 OR 2 TUBES SEE ADMIN CRITERIA Allergies Coded Allergies: Acetaminophen (HIVES, DYSPNEA 12/24/15) Mushrooms (09/18/16) Penicillin G (09/18/16) Sulfa Antibiotics (09/18/16) Sulfa Drugs (CHILDHOOD 12/24/15) Amitriptyline (hallucinations 09/18/16) Bupropion (bad dreams 09/18/16) Methadone (goofy 09/18/16) Physical Exam Vital Signs / I&Os Vital Signs Date Time Temp Pulse Resp B/P Pulse O2 O2 Flow FiO2 Ox Delivery Rate 09/25 075 98.1 76 20 117/55 98 Nasal 3.0 Cannula 09/26 627 98.8 78 18 101/50 95 Nasal 3.0 Cannula 06/02 0540 98.4 80 18 101/52 97 Nasal 3.0 Cannula 06/02 0527 98.8 81 18 113/43 100 Nasal 3.0 Cannula /02 0512 98.8 81 20 112/45 98 Nasal 3.0 Cannula / 0227 99.3 85 20 107/45 94 Nasal 2.0 Cannula 09/24 2334 108/54 / 2234 99.5 83 18 94/54 99 Nasal 2.0 Cannula 09/24 2000 2.0 09/24 1831 99.0 88 18 106/51 99 Nasal 2.0 Cannula 09/24 1600 92 06/ 1441 99.1 79 18 136/54 97 Nasal 2.0 Cannula 09/24 1200 110 / 1119 Nasal 2.0 Cannula 09/24 0958 99.3 84 18 124/37 96 Nasal 2.0 Cannula I&O 09/25 0000 09/24 1600 09/24 0800 Intake Total 1227 0 1546 Output Total 750 2610 2800 Balance 477 -2610 -1254 General Appearance Alert, Oriented X3, Cooperative, No acute distress Lungs Normal air movement, Scattered rhonchi. Cardiovascular Regular rate and rhythm, Normal S1 and S2 Abdomen Normal bowel sounds, Soft, mild epigastric tenderness Extremities No cyanosis, No clubbing Neurological Cranial nerves intact, No lateralizing signs Psych/Mental Status Mental status normal, Mood normal LAB Results Laboratory Tests 09/25 09/24 0415 1533 Chemistry Plasma Sodium (136 - 145 mmol/L) 140 Plasma Potassium (3.5 - 5.1 mmol/L) 3.6 Plasma Chloride (98 - 107 mmol/L) 106 CO2 (Enzymatic) (21 - 32 mmol/L) 27 BUN (7 - 18 mg/dL) 14 Creatinine (0.6 - 1.3 mg/dL) 0.8 Est GFR ( Amer) (mL/min) >60 Est GFR (Non-Af Amer) (mL/min) >60 Glucose (70 - 110 mg/dL) 331 Plasma Calcium (8.5 - 10.1 mg/dL) 7.9 Total Bilirubin (0.0 - 1.0 mg/dL) 0.1 AST (15 - 37 U/L) 23 ALT (12 - 78 U/L) 31 Alkaline Phosphatase (46 - 116 U/L) 96 Total Protein (6.4 - 8.2 g/dL) 4.9 Albumin (3.3 - 5.0 g/dL) 1.8 Hematology WBC (4.5 - 11.5 K/uL) 12.2 RBC (4.00 - 5.20 M/uL) 2.20 Hgb (12.0 - 16.0 gm/dL) 6.4 9.3 Hct (36.0 - 46.0 %) 19.1 28.0 MCV (80 - 100 fL) 87 MCH (26 - 34 pg) 29 RDW (11.6 - 14.8 %) 15.1 Neut % (Auto) (50 - 75 %) 73.6 Lymph % (Auto) (25 - 40 %) 16.8 [place] % (Auto) (3 - 14 %) 7.7 Eos % (Auto) (0 - 4 %) 1.6 Baso % (Auto) (0 - 2 %) 0.3 Plt Count, EDTA (150 - 400 K/uL) 172 PUBS MCHC (31 - 37 g/dL) 34 Assessment and Plan Problem List 1. GI bleed Plan -Findings of duodenal ulcer with upper GI bleed -Patient status post transfusion of 10 units packed RBCs -H&H posttransfusion is 9.9/29.8 -Monitor H&H every 4 hours -Recheck platelet count, INR -Continue Protonix 80 mg IV twice a day, Carafate 1 g by mouth every 6 hours, and octreotide drip per surgical recommendations. 2. Anemia Plan -See above -Patient with high risk duodenal ulcer for rebleeding -Status post transfusion 2 units packed RBCs today -See posttransfusion H&H above 3. Liver cirrhosis Plan -Patient with history of cirrhosis -Check for coagulopathy, platelet count -Monitor liver function tests, ammonia 4. Diabetes Plan -Insulin sliding scale -Blood sugar elevated on TPN -Monitor 5. Seizure disorder Plan -Stable -Continue current medical therapy -No recent seizure activity 6. Duodenal ulcer Plan -See above -Treatment as above Current status: Critical, unstable Anticipated discharge date: Anticipated discharge 2-3 days with improved status Anticipated discharge placement: Home versus detention facility with rehabilitation Patient care time: Time spent in chart review, patient interview, physical exam, CPOE, and care documentation: 35 minutes Visit to patient today: 2 Complexity of care: High E&M Codes Rounding: Inpt-High/00549
[2016-09-26] VITALS (30 sets, daily range): BP systolic 89–128; BP diastolic 36–76
--- NOTE | 2016-09-26 06:59 | Progress Note ---
Subjective General Note Date: September 26, 2016 Admission Date: September 18, 2016 Hospital Day: 9 PCP: John Mendoza M.D. Status: Inpatient, CCU Advanced Directive: FULL CODE Room: 302 Admission History: The patient is a 55-year-old white female with a significant past med history of type 2 diabetes mellitus, hypertension, hypercholesterolemia, seizure disorder, cirrhosis, who presented to [facility] emergency department on the day of admission secondary to complaints of altered mental status. [facility] ER evaluation was consistent with upper GI bleed with associated anemia, cirrhosis, altered mental status, type 2 diabetes mellitus. Secondary to the above, the patient was admitted by Erlinda Odell M.D. for further evaluation and treatment. For other history present illness, past medical history, family history, social history, review of systems, and admission physical examination please see the patient's history and physical examination and ER visit note in the patient's medical record. Subjective: The patient states she had a fairly good night. Abdominal pain improved. No nausea or vomiting. No specific complaints or concerns at this time. Await surgery per Dr. Zuñiga Patient requests: None Medications and Allergies Medications Current Medications Sig/Asya Start time Last Medication Dose Route Stop Time Status Admin Magnesium Sulfate 2 GM ONCE 09/26 1600 UNV IV Magnesium Sulfate 2 GM NOW STA 09/26 0648 UNV IV 09/26 0649 Sodium Chloride 250 ML .[FOR TRANSFUSION] 09/26 0600 AC IV Insulin Human Lispro See Dose Q6HR 09/26 0000 AC 09/26 Insts (1) SC 0637 Morphine Sulfate See Dose Q4H PRN 09/25 2115 AC 09/25 Insts (2) IV 2149 Amino Acids/ 1,000 ML .BY DURATION 09/24 1500 AC 09/25 Electrolytes/Dextrose IV 0927 Fat Emulsion 250 ML Q24H 09/24 1500 AC 09/25 Intravenous IV 1550 Multivitamins 10 ML .BY DURATION 09/24 1500 AC 09/26 Trace Metals 1 ML IV 0219 Amino Acids/ 1,000 ML Electrolytes/Dextrose Insulin Glargine 15 UNITS QHS 09/23 2100 AC 09/25 SC 2031 Sucralfate 1 GM ACHS 09/23 1630 AC 06/ PO 203 Octreotide Acetate 300 MCG Q12H 09/23 1515 AC 09/26 Dextrose/Water 250 ML IV 0502 Pantoprazole Sodium 80 MG Q12HR 09/23 09 AC 09/25 IV 2215 Ceftriaxone Sodium/ 50 ML DAILY 09/20 09 AC 09/25 Dextrose IV 0842 Dextrose See Dose Q15MIN PRN 09/19 213 AC 09/20 Insts (3) IV 1808 Dextrose See Dose Q15MIN PRN 09/19 213 AC Insts (4) PO Glucagon 1 MG Q15MIN PRN 09/19 213 AC IM Lisinopril 10 MG DAILY 09/19 09 AC 09/24 PO 1033 Phenytoin Sodium 200 MG QAM 09/19 09 AC 09/25 PO 0842 Venlafaxine HCl 75 MG QAM 09/19 09 AC 09/25 PO 0934 Gabapentin 200 MG QHS 09/18 2099 AC 09/24 PO 212 Phenytoin Sodium 300 MG QHS 09/18 2099 AC 09/24 PO 2123 Risperidone 1 MG QHS 09/18 2099 AC 09/22 PO 2243 Venlafaxine HCl 150 MG QHS 09/18 2099 AC 09/24 PO 2123 Lorazepam 2 MG Q6H PRN 09/18 0215 AC 09/24 IV 1536 Al Hydrox/Mg Hydrox/ 15 ML Q1H PRN 09/18 0200 AC 09/22 Simethicone PO 1248 Magnesium Hydroxide 10 ML DAILY PRN 09/18 020 AC 09/22 PO 1246 Nitroglycerin 0.4 MG Q5M PRN 09/18 020 AC SL Ondansetron HCl 4 MG Q6H PRN 09/18 0200 AC 09/23 IV 0201 Dose Instructions: (1)Insulin Human Lispro: MEDIUM DOSE: ACCUCHECK AND SLIDING SCALE >>To change sliding scale DISCONTINUE this order and enter a NEW order. Thanks< (2)Morphine Sulfate: 1 - 2 MG (3)Dextrose: 25 OR 50 ML SEE ADMIN CRITERIA (4)Dextrose: 1 OR 2 TUBES SEE ADMIN CRITERIA Allergies Coded Allergies: Acetaminophen (HIVES, DYSPNEA 12/24/15) Mushrooms (09/18/16) Penicillin G (09/18/16) Sulfa Antibiotics (09/18/16) Sulfa Drugs (CHILDHOOD 12/24/15) Amitriptyline (hallucinations 09/18/16) Bupropion (bad dreams 09/18/16) Methadone (goofy 09/18/16) Physical Exam Vital Signs / I&Os Vital Signs Date Time Temp Pulse Resp B/P Pulse O2 O2 Flow FiO2 Ox Delivery Rate 06/ 0634 98.4 68 17 105/41 97 Nasal 3.0 Cannula 06/03 0612 98.1 72 12 114/60 95 Nasal 3.0 Cannula 06/03 0600 98.2 68 12 114/40 95 Nasal 3.0 Cannula 06/03 0522 68 14 104/48 97 Nasal 3.0 Cannula 06/03 0440 71 14 104/40 97 Nasal 3.0 Cannula 06/03 0356 74 14 117/39 95 Nasal 3.0 Cannula 06/03 0311 98.1 75 12 106/45 99 Nasal 3.0 Cannula 06/03 0221 78 12 102/36 100 Nasal 3.0 Cannula 06/03 0157 75 10 104/39 100 Nasal 3.0 Cannula 06/03 0151 98.8 79 10 95/67 97 Nasal 3.0 Cannula 06/03 0148 98.8 75 10 95/67 97 Nasal 3.0 Cannula 06/03 0125 79 14 111/51 100 Nasal 3.0 Cannula 06/03 0058 98.4 73 14 89/76 97 Nasal 3.0 Cannula 06/03 0041 74 14 105/43 100 Nasal 3.0 Cannula 06/03 0010 73 14 91/44 98 Nasal 3.0 Cannula 06/02 2359 98.4 75 13 104/48 99 Nasal 3.0 Cannula 06/02 2315 92/48 06/02 2314 98/70 06/02 2300 98.4 76 13 103/40 100 Nasal 3.0 Cannula 06/02 2256 85 13 99/26 100 Nasal 3.0 Cannula 06/02 2245 99/26 06/02 2230 98.4 84 12 87/46 96 Nasal 3.0 Cannula 06/02 2227 82/42 06/02 2215 81/46 06/02 2211 84/41 06/02 2207 78/45 06/02 2207 98.2 90 12 93/45 95 Nasal 3.0 Cannula 06/02 2152 98.8 96 16 97/70 100 Nasal 3.0 Cannula 06/02 2100 98.8 79 16 124/51 97 Nasal 3.0 Cannula 06/02 8 83 16 112/61 97 Nasal 3.0 Cannula 06/02 0 98.6 76 16 108/38 97 Nasal 3.0 Cannula 06/02 2034 3.0 06/2018 98.6 75 16 117/51 95 Nasal 3.0 Cannula 06/02 1949 98.2 75 12 111/65 95 3.0 06/02 4 Nasal 3.0 Cannula 06/02 1839 98.8 80 20 109/57 100 Nasal 3.0 Cannula 06/02 1429 98.2 78 20 114/54 100 Nasal 3.0 Cannula 06/02 1200 78 20 126/50 100 Nasal 3.0 Cannula 06/02 1102 3.0 06/02 1102 98.2 72 16 112/49 100 Nasal 3.0 Cannula 06/02 1023 98.4 79 17 114/42 100 Nasal 3.0 Cannula 06/02 1000 98.1 74 16 108/73 99 Nasal 3.0 Cannula 06/02 0900 2.0 06/02 0750 98.1 76 20 117/55 98 Nasal 3.0 Cannula I&O 09/26 0000 /02 1600 09/25 0800 Intake Total 995 321 4213 Output Total 1314 636 6726 Balance -1080 -375 253 General Appearance Alert, Oriented X3, Cooperative, No acute distress Lungs Clear to auscultation, Normal air movement Cardiovascular Regular rate and rhythm, Normal S1 and S2 Abdomen Normal bowel sounds, Soft, mild epigastric tenderness Extremities No cyanosis, No clubbing Neurological Cranial nerves intact, No lateralizing signs Psych/Mental Status Mental status normal, Mood normal LAB Results Laboratory Tests 09/26 09/26 09/26 0424 0424 0030 Chemistry Plasma Sodium (136 - 145 mmol/L) 136 Plasma Potassium (3.5 - 5.1 mmol/L) 3.7 Plasma Chloride (98 - 107 mmol/L) 105 CO2 (Enzymatic) (21 - 32 mmol/L) 27 BUN (7 - 18 mg/dL) 17 Creatinine (0.6 - 1.3 mg/dL) 0.8 Est GFR ( Amer) (mL/min) >60 Est GFR (Non-Af Amer) (mL/min) >60 Glucose (70 - 110 mg/dL) 327 Plasma Calcium (8.5 - 10.1 mg/dL) 7.7 Phosphorus (2.5 - 4.9 mg/dL) 3.0 Plasma Magnesium (1.8 - 2.4 mg/dL) 1.3 Prealbumin Pending Hematology WBC (4.5 - 11.5 K/uL) 10.7 12.1 RBC (4.00 - 5.20 M/uL) 2.90 2.85 Hgb (12.0 - 16.0 gm/dL) 8.6 10.1 Hct (36.0 - 46.0 %) 25.2 26.1 MCV (80 - 100 fL) 87 92 MCH (26 - 34 pg) 30 36 RDW (11.6 - 14.8 %) 14.4 15.3 Neut % (Auto) (50 - 75 %) 72.2 81.2 Lymph % (Auto) (25 - 40 %) 18.2 12.0 Stark % (Auto) (3 - 14 %) 7.6 5.2 Eos % (Auto) (0 - 4 %) 1.7 1.5 Baso % (Auto) (0 - 2 %) 0.3 0.1 Plt Count, EDTA (150 - 400 K/uL) 141 129 RBC Morphology 1+ ANISOCYTOSIS PUBS MCHC (31 - 37 g/dL) 34 39 /02 /02 /06 01/09/25 1629 1600 1417 1205 Coagulation INR (0.8 - 1.2) Cancelled 1.0 Hematology WBC (4.5 - 11.5 K/uL) 8.9 10.8 11.9 RBC (4.00 - 5.20 M/uL) 2.59 3.04 3.38 Hgb (12.0 - 16.0 gm/dL) 9.3 9.0 9.9 Hct (36.0 - 46.0 %) 24.3 27.0 29.8 MCV (80 - 100 fL) 94 89 88 MCH (26 - 34 pg) 36 30 29 RDW (11.6 - 14.8 %) 15.5 14.5 14.1 Neut % (Auto) (50 - 75 %) 71.3 69.4 73.1 Lymph % (Auto) (25 - 40 %) 21.2 20.8 17.8 Stark % (Auto) (3 - 14 %) 4.9 7.4 6.8 Eos % (Auto) (0 - 4 %) 2.0 1.9 2.0 Baso % (Auto) (0 - 2 %) 0.6 0.5 0.3 Plt Count, EDTA (150 - 400 K/uL) 153 153 171 RBC Morphology (60248 A) 2+ ROULO PUBS MCHC (31 - 37 g/dL) 38 33 33 Assessment and Plan Problem List 1. Duodenal ulcer Plan -Patient with duodenal ulcer -Persistent upper GI bleeding -Transfusion requirement to date: Packed RBCs-11 units, fresh frozen plasma 3 units -Dr. Zuñiga has inside the patient requires surgery at this time -Surgery per Dr. Zuñiga see his surgical notes 2. Diabetes Plan -Insulin sliding-scale high-dose -Blood sugars elevated -Consider Lantus in addition to Humalog insulin -Monitor 3. Liver cirrhosis Plan -Long-standing history of cirrhosis -Monitor 4. GI bleed Plan -Patient with ongoing GI bleeding -Status critical/unstable -Decision to take patient to surgery per Dr. Zuñiga made this a.m. -Continue present therapy with Protonix, Carafate, octreotide 5. Anemia Plan -See above -Serial H&H -Transfusional therapy as necessary 6. Seizure disorder Plan -Stable -Dilantin 100 mg IV 3 times a day -Monitor Current status: Critical, unstable Anticipated discharge date: Anticipated discharge 4-5 days Anticipated discharge placement: Home Patient care time: Time spent in chart review, patient interview, physical exam, CPOE, and care documentation: 35 minutes Visit to patient today: 2 Complexity of care: High E&M Codes Rounding: Inpt-High/[id number]
--- NOTE | 2016-09-26 08:34 | Progress Note ---
Subjective General 55-year-old female, hospital day 8. While in the hospital was diagnosed with upper GI bleed secondary to duodenal ulcer. Yesterday morning she dropped her hemoglobin and hematocrit and was resuscitated appeared to be somewhat stable only to drop her hemoglobin and hematocrit and her pressure late last night. Since her admission this is her third rebleed. She has required 11 units packed red blood cells, 3 units FFP, and 2 rounds of tranexamic acid. A lengthy discussion was had with the patient yesterday concerning her problem and definitive treatment would be surgery. We have discussed the risks of surgery to include, but not exclusive of infection, hernia, evisceration, anastomotic leak, anastomotic stenosis, recurrent ulcer, hemorrhage/ exsanguination. Patient understands and agrees to proceed. All questions being answered to her satisfaction. Physical Exam Vital Signs / I&Os Vital Signs Date Time Temp Pulse Resp B/P Pulse O2 O2 Flow FiO2 Ox Delivery Rate 06/03 0807 98.4 67 18 128/40 99 Nasal 3.0 Cannula 06/03 0705 98.2 69 18 125/47 99 Nasal 3.0 Cannula 06/03 0634 98.4 68 17 105/41 97 Nasal 3.0 Cannula 06/03 0612 98.1 72 12 114/60 95 Nasal 3.0 Cannula 06/03 0600 98.2 68 12 114/40 95 Nasal 3.0 Cannula 06/03 0522 68 14 104/48 97 Nasal 3.0 Cannula 06/03 0440 71 14 104/40 97 Nasal 3.0 Cannula 06/03 0356 74 14 117/39 95 Nasal 3.0 Cannula 06/03 0311 98.1 75 12 106/45 99 Nasal 3.0 Cannula 06/03 0221 78 12 102/36 100 Nasal 3.0 Cannula 06/03 0157 75 10 104/39 100 Nasal 3.0 Cannula 06/03 0151 98.8 79 10 95/67 97 Nasal 3.0 Cannula 06/03 0148 98.8 75 10 95/67 97 Nasal 3.0 Cannula 06/03 0125 79 14 111/51 100 Nasal 3.0 Cannula 06/03 0058 98.4 73 14 89/76 97 Nasal 3.0 Cannula 06/03 0041 74 14 105/43 100 Nasal 3.0 Cannula 06/03 0010 73 14 91/44 98 Nasal 3.0 Cannula 06/02 2359 98.4 75 13 104/48 99 Nasal 3.0 Cannula 06/02 2315 92/48 06/02 2314 98/70 06/02 2300 98.4 76 13 103/40 100 Nasal 3.0 Cannula 06/02 2256 85 13 99/26 100 Nasal 3.0 Cannula 06/02 2245 99/26 06/02 2230 98.4 84 12 87/46 96 Nasal 3.0 Cannula 06/02 2227 82/42 06/02 2215 81/46 06/02 2211 84/41 06/02 2207 78/45 06/02 2207 98.2 90 12 93/45 95 Nasal 3.0 Cannula 06/02 2152 98.8 96 16 97/70 100 Nasal 3.0 Cannula 06/02 2099 98.8 79 16 124/51 97 Nasal 3.0 Cannula 06/02 8 83 16 112/61 97 Nasal 3.0 Cannula 06/02 0 98.6 76 16 108/38 97 Nasal 3.0 Cannula 06/02 5 3.0 06/02 2018 98.6 75 16 117/51 95 Nasal 3.0 Cannula 06/02 1949 98.2 75 12 111/65 95 3.0 06/02 1924 Nasal 3.0 Cannula 06/02 1839 98.8 80 20 109/57 100 Nasal 3.0 Cannula 06/02 1429 98.2 78 20 114/54 100 Nasal 3.0 Cannula 06/02 1200 78 20 126/50 100 Nasal 3.0 Cannula 06/02 1102 3.0 06/02 1102 98.2 72 16 112/49 100 Nasal 3.0 Cannula 06/02 1023 98.4 79 17 114/42 100 Nasal 3.0 Cannula 06/02 1000 98.1 74 16 108/73 99 Nasal 3.0 Cannula 06/02 0900 2.0 I&O 06/02 0800 06/02 1600 06/03 0000 Intake Total 1403 620 620 Output Total 3919 220 5964 Balance 253 -375 -1080 General Appearance Alert, Oriented X3, Cooperative, No acute distress Lungs Clear to auscultation Neck No JVD, No masses, No thyromegaly, No lymphadenopathy Cardiovascular Regular rate and rhythm Abdomen Soft, No guarding, No rebound Extremities No clubbing, No edema Skin warm and dry Neurological No lateralizing signs Psych/Mental Status Mental status normal, Mood normal LAB Results Laboratory Tests 09/25 09/25 09/25 09/25 09/25 1205 1417 1600 1622014 Coagulation INR (0.8 - 1.2) 1.0 Cancelled Hematology WBC (4.5 - 11.5 K/uL) 11.9 10.8 8.9 RBC (4.00 - 5.20 M/uL) 3.38 3.04 2.59 Hgb (12.0 - 16.0 gm/dL) 9.9 9.0 9.3 Hct (36.0 - 46.0 %) 29.8 27.0 24.3 MCV (80 - 100 fL) 88 89 94 MCH (26 - 34 pg) 29 30 36 RDW (11.6 - 14.8 %) 14.1 14.5 15.5 Neut % (Auto) (50 - 75 %) 73.1 69.4 71.3 Lymph % (Auto) (25 - 40 %) 17.8 20.8 21.2 Davison % (Auto) (3 - 14 %) 6.8 7.4 4.9 Eos % (Auto) (0 - 4 %) 2.0 1.9 2.0 Baso % (Auto) (0 - 2 %) 0.3 0.5 0.6 Plt Count, EDTA (150 - 400 K/uL) 171 153 153 RBC Morphology (33972 A) 2+ ROULO PUBS MCHC (31 - 37 g/dL) 33 33 38 09/26 09/26 09/26 0030 0424 0424 Chemistry Plasma Sodium (136 - 145 mmol/L) 136 Plasma Potassium (3.5 - 5.1 mmol/L) 3.7 Plasma Chloride (98 - 107 mmol/L) 105 CO2 (Enzymatic) (21 - 32 mmol/L) 27 BUN (7 - 18 mg/dL) 17 Creatinine (0.6 - 1.3 mg/dL) 0.8 Est GFR ( Amer) (mL/min) >60 Est GFR (Non-Af Amer) (mL/min) >60 Glucose (70 - 110 mg/dL) 327 Plasma Calcium (8.5 - 10.1 mg/dL) 7.7 Phosphorus (2.5 - 4.9 mg/dL) 3.0 Plasma Magnesium (1.8 - 2.4 mg/dL) 1.3 Prealbumin Pending Hematology WBC (4.5 - 11.5 K/uL) 12.1 10.7 RBC (4.00 - 5.20 M/uL) 2.85 2.90 Hgb (12.0 - 16.0 gm/dL) 10.1 8.6 Hct (36.0 - 46.0 %) 26.1 25.2 MCV (80 - 100 fL) 92 87 MCH (26 - 34 pg) 36 30 RDW (11.6 - 14.8 %) 15.3 14.4 Neut % (Auto) (50 - 75 %) 81.2 72.2 Lymph % (Auto) (25 - 40 %) 12.0 18.2 Davison % (Auto) (3 - 14 %) 5.2 7.6 Eos % (Auto) (0 - 4 %) 1.5 1.7 Baso % (Auto) (0 - 2 %) 0.1 0.3 Plt Count, EDTA (150 - 400 K/uL) 129 141 RBC Morphology 1+ ANISOCYTOSIS PUBS MCHC (31 - 37 g/dL) 39 34 Assessment and Plan Problem List 1. GI bleed Plan Recurrent upper GI bleeding secondary to duodenal ulcer. She will be taken to the operating room this morning where she will undergo exploratory laparotomy and perform a Billroth I. Because of the extensive nature of the ulcer. I doubt that oversewing the bleeding point would be beneficial to the patient, as she has a high risk of bleeding from the remaining large ulcer crater base.
--- NOTE | 2016-09-26 14:26 | Operative Report ---
Operative Report Date of Surgery: 09/26/16 Preoperate Diagnosis: upper GI bleed. Duodenal ulcer Postoperative Diagnosis: GI bleeding. Duodenal ulcer. Cirrhosis of the liver. 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 endotracheal Indications: A 55-year-old female who was admitted with multiple medical issues including anemia. Underwent upper GI endoscopy was noted to have a large circumferential duodenal ulcer. There are hospitalization the patient bled 3 times. The patient received a total of 11 units of heparin. Blood cells, 3 units of fresh frozen plasma, and 2 runs tranexamic acid. In spite of aggressive treatment. The patient continued to drop her blood pressure and lead periodically. After a lengthy discussion with the patient, she decided to proceed with surgery knowing the risks. FINDINGS: Cirrhotic, stiff liver. Mild portal hypertension. Adhesions of the proximal transverse colon and the undersurface of right lobe of the liver, anterior duodenum and distal stomach. Posterior wall of the duodenum nonexistent with extensive fibrotic tissue firmly adherent to the retroperitoneum and pancreas. Stable and an anastomosis on completion with insufflation of the gastric lumen with air no evidence of leak appreciated. Surgical Technique: The patient was brought to the operating room. Patient dorsal supine position. An arterial line was placed by anesthesia. The patient underwent general endotracheal anesthesia by the anesthesiology department. After proper anesthesia, the patient's abdomen was prepped using Betadine and draped in a sterile fashion. A nasogastric tube was inserted into the gastric lumen and applied to suction. No evidence of blood within the suctioned gastric contents. A midline incision was made from xiphoid to umbilicus. Abdominal cavity was entered being careful to avoid injury to the underlying contents. Self- retaining retractors were introduced into the abdominal cavity and retraction applied using the Bookwalter. Sponges were introduced into the abdominal cavity to displace the small bowel towards the lower abdomen. The transverse colon which was adherent to the undersurface the right lower liver and anterior duodenal was taken down carefully using the ThunderBeat sealing/cutting device. Once the transverse colon was freed we were able to pack it towards the lower abdomen and retract it out of the way. It was during this process we noted that the venous system was under pressure. The distal stomach was identified the proximal right epiploic vessels were taken down using the ThunderBeat, as well as those vessels on the lesser curvature. We were able to create a tunnel posterior to the stomach at this point and passed a FLIP stapler across the stomach. The stomach was divided. We were able to mobilize the distal stomach onto the duodenum posteriorly using a combination of blunt dissection and ThunderBeat. This was tedious and laborious. A large branch of the gastroduodenal vessel firmly adherent to the posterior wall of the duodenum was oversewn . At this point as bleeding was encountered vessels were suture ligated using 3-0 silk suture ligature. It became quite evident that we could not mobilize posterior aspect of the duodenum secondary to the fibrosis present and the anterior duodenal bulb was opened using electrocautery, the ulcer identified. The duodenal back wall was absent and replaced with ulcerated fibrotic tissue. There are no gross evidence of exposed vessels. The remaining duodenum anteriorly and distally was mobilized from the surrounding edematous tissue. The duodenum was transected using the electro cautery, leaving fibrotic ulcer crater behind. All 4 quadrants of the remaining duodenum were tagged using 3-0 silk suture ligature and a pursestring device was placed beneath this. A pursestring was created using 3-0 Maxon and the excess duodenal tissue was excised. The pursestring device was removed and a 31 mm EEA anvil was placed into our duodenal lumen and the pursestring tied. The distal stomach was identified and a gastrotomy performed using electrocautery. The previously placed staple line. Through the gastrotomy the EEA stapler was passed and the spike extruded and connected to our EEA anvil. The stapler was fired and withdrawn. Two duonenal "donuts" were identified and complete. The gastrotomy was closed transversely using a TA 55 stapling device. The staple line was imbricated using 3-0 [id number] silk suture. The stomach was then insufflated with air by anesthesia while our gastroduodenal staple line was placed beneath a pool of normal saline. There was no evidence of leak. A 10 mm Kareem-Castañeda drain was placed in the area of our duodenal anastomosis and brought out through a separate stab wound in the right mid abdomen and secured using 3-0 nylon. The tubing was attached to bulb suction. The abdominal cavity was irrigated copiously with warm normal saline and antibiotic solution irrigant suctioned out. All laparotomy sponges and retractors were retrieved from the abdominal cavity. A layer of Seprafilm was placed between the abdominal contents and the undersurface of the abdominal wall. The midline incision was closed using #1 continuous Maxon suture. Subcutaneous tissue was irrigated copiously with warm normal saline. The skin was approximated with skin edwin. Sterile occlusive dressings were placed and the patient was placed in abdominal binder. Patient tolerated procedure well. Was extubated, transferred to her room in stable condition. There were no intraoperative anesthetic complications. CONDITION: Stable postop anesthesia recovery room COMPLICATIONS: None ESTIMATED BLOOD LOSS: 300 cc FLUIDS:: 1200 cc lactated Ringer's. 300 cc TPN. 3 units packed red blood cell transfusion DRAINS/PACKIN mm Kareem-Castañeda SPECIMEN: Distal stomach and duodenum
[2016-09-27] VITALS (23 sets, daily range): BP systolic 78–144; BP diastolic 36–50
--- NOTE | 2016-09-27 06:40 | Progress Note ---
Subjective General Note Date: September 27, 2016 Admission Date: September 18, 2016 Hospital Day: 10 PCP: John Mendoza M.D. Status: Inpatient, CCU Advanced Directive: FULL CODE Room: 302 Admission History: The patient is a 55-year-old white female with a significant past med history of type 2 diabetes mellitus, hypertension, hypercholesterolemia, seizure disorder, cirrhosis, who presented to [facility] emergency department on the day of admission secondary to complaints of altered mental status. [facility] ER evaluation was consistent with upper GI bleed with associated anemia, cirrhosis, altered mental status, type 2 diabetes mellitus. Secondary to the above, the patient was admitted by Erlinda Odell M.D. for further evaluation and treatment. For other history present illness, past medical history, family history, social history, review of systems, and admission physical examination please see the patient's history and physical examination and ER visit note in the patient's medical record. Subjective: The patient states she is doing fairly well today. Denies shortness of breath. Continues to complain of abdominal pain which appears adequately controlled. Patient requests: None Medications and Allergies Medications Current Medications Sig/Asya Start time Last Medication Dose Route Stop Time Status Admin Phenytoin Sodium 100 MG TID 09/26 2200 AC 09/27 IV 0624 Cefotetan Disodium/ 50 ML Q12HR 09/26 2100 AC / Dextrose IV 09/27 0930 2025 Famotidine/Sodium 50 ML Q12HR 09/26 2100 AC 09/26 Chloride IV 2025 Amino Acids/ 1,000 ML .BY DURATION 09/26 1930 AC 09/26 Electrolytes/Dextrose IV 1922 Multivitamins 10 ML .BY DURATION 09/26 1930 AC Trace Metals 1 ML IV Amino Acids/ 1,000 ML Electrolytes/Dextrose Enalaprilat 0.625 MG Q6HR / 1800 AC / IV 0624 Fat Emulsion 250 ML Q24H / 1800 AC 09/26 Intravenous IV 1825 Insulin Human Lispro See Dose Q6HR / 1800 AC 09/27 Insts (1) SC 0636 Metoclopramide HCl 10 MG Q6HR /03 1800 AC / IV 0624 Magnesium Sulfate 2 GM ONCE 09/26 1600 CAN IV Total Parenteral See Dose .PER PHARMACY 09/26 1545 AC Nutrition Insts (2) IV Hydromorphone HCl 0.5 MG Q1H PRN 09/26 1430 AC 09/26 IV 2026 Hydromorphone HCl 1 MG Q1H PRN 09/26 1400 AC 09/27 IV 0423 Lactated Ringer's 1,000 ML ASDIRECTED 09/26 1400 AC 09/26 IV 1617 Ondansetron HCl See Dose Q6H PRN 09/26 1400 AC Insts (3) IV Magnesium Sulfate 2 GM NOW STA 09/26 0648 CAN IV 09/26 0649 Sodium Chloride 250 ML .[FOR TRANSFUSION] 09/26 0600 AC IV Dose Instructions: (1)Insulin Human Lispro: HIGH DOSE SLIDING SCALE (2)Total Parenteral Nutrition: TPN PER PHARMACY PROTOCOL (3)Ondansetron HCl: 4 - 8 MG Allergies Coded Allergies: Acetaminophen (HIVES, DYSPNEA 12/24/15) Mushrooms (09/18/16) Penicillin G (09/18/16) Sulfa Antibiotics (09/18/16) Sulfa Drugs (CHILDHOOD 12/24/15) Amitriptyline (hallucinations 09/18/16) Bupropion (bad dreams 09/18/16) Methadone (goofy 09/18/16) Physical Exam Vital Signs / I&Os Vital Signs Date Time Temp Pulse Resp B/P Pulse O2 O2 Flow FiO2 Ox Delivery Rate 09/27 0510 97.9 92 14 120/48 92 Nasal 7.0 Cannula 09/27 0412 85 140/49 91 / 0310 83 16 138/48 97 Nasal 6.0 Cannula 09/27 0205 84 16 128/48 91 Nasal 6.0 Cannula 09/27 0110 82 123/45 92 06/04 0000 97.5 78 16 136/48 92 Nasal 6.0 Cannula 09/26 2300 76 118/44 92 Nasal 6.0 Cannula 09/26 2200 97.3 75 16 102/39 93 Nasal 6.0 Cannula 09/26 2057 97.9 72 12 110/42 93 Nasal 6.0 Cannula 09/26 2044 Nasal 6.0 Cannula 09/26 1957 97.9 71 16 103/43 92 Nasal 6.0 Cannula 09/26 1937 6.0 09/269 97.9 72 16 107/46 93 Nasal 6.0 Cannula 09/26 1800 98.1 79 16 109/43 95 Nasal 6.0 Cannula 09/26 1730 78 16 107/43 93 Nasal 6.0 Cannula 06/03 1700 98.1 78 16 117/48 93 Nasal 6.0 Cannula 06/03 1644 78 16 113/47 92 Nasal 6.0 Cannula 06/03 1631 78 16 112/46 92 Nasal 6.0 Cannula 06/03 1614 74 16 119/47 92 Nasal 6.0 Cannula 06/03 1600 97.7 75 16 116/50 91 Nasal 6.0 Cannula 06/03 1530 97.5 79 17 112/49 92 Nasal 4.0 Cannula 06/03 1520 76 15 113/48 92 Nasal 4.0 Cannula 06/03 1510 77 16 104/52 92 Nasal 4.0 Cannula 06/03 1500 78 16 111/50 98 Mask 9.0 06/03 1455 79 17 102/47 98 Mask 9.0 06/03 1450 79 17 119/53 98 Mask 9.0 06/03 1445 80 17 118/43 98 Mask 9.0 06/03 1440 80 17 120/48 98 Mask 9.0 06/03 1435 81 16 118/43 98 Mask 9.0 06/03 1430 80 16 118/43 98 Mask 9.0 06/03 1425 80 17 109/62 98 Mask 9.0 06/03 1420 79 16 109/54 98 Mask 9.0 06/03 1415 97.9 77 16 115/42 98 Mask 9.0 06/03 0832 98.1 70 18 121/39 100 Nasal 3.0 Cannula 06/03 0807 98.4 67 18 128/40 99 Nasal 3.0 Cannula 06/03 0800 Nasal 3.0 Cannula 06/03 0705 98.2 69 18 125/47 99 Nasal 3.0 Cannula I&O /04 0000 06/03 1600 06/03 0800 Intake Total 3083 1983 Output Total 278 445 1239 Balance -228 2110 243 General Appearance Alert, Oriented X3, Cooperative, Mild distress Lungs Scattered rhonchi, decreased breath sounds bases Cardiovascular Regular rate and rhythm, Normal S1 and S2 Abdomen Diffuse tenderness to palpation. Mild distention, wound not examined Extremities No cyanosis, No clubbing Neurological Cranial nerves intact, No lateralizing signs Psych/Mental Status Mental status normal, Mood normal LAB Results Laboratory Tests 09/27 09/26 0547 1445 Chemistry Plasma Sodium (136 - 145 mmol/L) 134 136 Plasma Potassium (3.5 - 5.1 mmol/L) 4.7 4.1 Plasma Chloride (98 - 107 mmol/L) 102 101 CO2 (Enzymatic) (21 - 32 mmol/L) 22 26 BUN (7 - 18 mg/dL) 28 20 Creatinine (0.6 - 1.3 mg/dL) 1.0 1.0 Est GFR ( Amer) (mL/min) >60 >60 Est GFR (Non-Af Amer) (mL/min) >60 >60 Glucose (70 - 110 mg/dL) 440 485 Plasma Calcium (8.5 - 10.1 mg/dL) 7.7 7.5 Phosphorus (2.5 - 4.9 mg/dL) 4.6 Plasma Magnesium (1.8 - 2.4 mg/dL) 2.6 Coagulation INR (0.8 - 1.2) 1.0 Hematology WBC (4.5 - 11.5 K/uL) 21.9 RBC (4.00 - 5.20 M/uL) 4.69 Hgb (12.0 - 16.0 gm/dL) 13.8 14.1 Hct (36.0 - 46.0 %) 41.3 42.3 MCV (80 - 100 fL) 88 MCH (26 - 34 pg) 30 RDW (11.6 - 14.8 %) 15.3 Neut % (Auto) (50 - 75 %) 87.0 Lymph % (Auto) (25 - 40 %) 4.4 [place] % (Auto) (3 - 14 %) 8.5 Eos % (Auto) (0 - 4 %) 0.1 Baso % (Auto) (0 - 2 %) 0 Plt Count, EDTA (150 - 400 K/uL) 172 PUBS MCHC (31 - 37 g/dL) 34 Assessment and Plan Problem List 1. Duodenal ulcer Plan -Status post laparotomy/gastroduodenostomy -No evidence of active bleeding -Follow per surgery-Dr. Zuñiga -Unremarkable postoperative course today -Pain adequately controlled with IV opiate therapy 2. GI bleed Plan -H&H stable -H&H 13.8/41.3 -No active bleeding identified -Monitor 3. Liver cirrhosis Plan -Patient with findings of cirrhosis on imaging/surgical findings -Monitor for potential hepatic encephalopathy 4. Diabetes Plan -Patient with history of diabetes mellitus -Blood sugars elevated this time -Insulin sliding scale increased to high-dose protocol every 4 hours Accu-Cheks -Lantus 15 units subcutaneous twice a day -Monitor 5. Seizure disorder Plan -Stable -Dilantin 100 mg IV every 8 hours -Check the level in a.m. 6. Hypomagnesemia Status Acute Onset Date 09/26/16 Plan -Resolved -Magnesium level 2.6 -Monitor 7. Anemia Plan -Improved -H&H stable -Monitor Current status: Critical, unstable Anticipated discharge date: Anticipated discharge in 3-4 days Anticipated discharge placement: Home Patient care time: Time in chart review, patient interview, physical exam, CPOE, and care documentation: 35 mins Visit to patient today: 2 Complexity of care: High DVT prophylaxis: SCD E&M Codes Rounding: Inpt-High/[id number]
--- NOTE | 2016-09-27 10:01 | Progress Note ---
Late Entry Date/Time Late Entry Date and Time LATE ENTRY Date of visit: 09/27/16 Time of visit: 0 954 Subjective General 55-year-old female postop day 1 status post Billroth I for bleeding duodenal ulcer. Stable. Complains of incisional discomfort as expected. No bleeding from the NG tube. Physical Exam Vital Signs / I&Os Vital Signs Date Time Temp Pulse Resp B/P Pulse O2 O2 Flow FiO2 Ox Delivery Rate 06/ 0903 98 12 122/48 89 Mask 7.0 06/04 0800 88 16 138/50 90 Nasal 7.0 Cannula 06/04 0746 7.0 06/04 0700 98.6 88 18 144/50 90 Nasal 7.0 Cannula 06/04 0510 97.9 92 14 120/48 92 Nasal 7.0 Cannula 06/04 0412 85 140/49 91 06/04 0310 83 16 138/48 97 Nasal 6.0 Cannula 06/04 0205 84 16 128/48 91 Nasal 6.0 Cannula 06/04 0110 82 123/45 92 06/04 0000 97.5 78 16 136/48 92 Nasal 6.0 Cannula 06/03 2300 76 118/44 92 Nasal 6.0 Cannula 06/03 2200 97.3 75 16 102/39 93 Nasal 6.0 Cannula 06/03 2058 97.9 72 12 110/42 93 Nasal 6.0 Cannula 06/03 2045 Nasal 6.0 Cannula 06/03 1958 97.9 71 16 103/43 92 Nasal 6.0 Cannula 06/03 1938 6.0 06/03 1859 97.9 72 16 107/46 93 Nasal 6.0 Cannula 06/03 1800 98.1 79 16 109/43 95 Nasal 6.0 Cannula 06/03 1730 78 16 107/43 93 Nasal 6.0 Cannula 06/03 1700 98.1 78 16 117/48 93 Nasal 6.0 Cannula 06/03 1644 78 16 113/47 92 Nasal 6.0 Cannula 06/03 1631 78 16 112/46 92 Nasal 6.0 Cannula 06/03 1614 74 16 119/47 92 Nasal 6.0 Cannula 06/03 1600 97.7 75 16 116/50 91 Nasal 6.0 Cannula 06/03 1530 97.5 79 17 112/49 92 Nasal 4.0 Cannula 06/03 1520 76 15 113/48 92 Nasal 4.0 Cannula 06/03 1510 77 16 104/52 92 Nasal 4.0 Cannula 06/ 1500 78 16 111/50 98 Mask 9.0 06/03 1455 79 17 102/47 98 Mask 9.0 06/03 1450 79 17 119/53 98 Mask 9.0 06/03 1445 80 17 118/43 98 Mask 9.0 06/03 1440 80 17 120/48 98 Mask 9.0 06/03 1435 81 16 118/43 98 Mask 9.0 06/03 1430 80 16 118/43 98 Mask 9.0 06/03 1425 80 17 109/62 98 Mask 9.0 06/03 1420 79 16 109/54 98 Mask 9.0 06/03 1415 97.9 77 16 115/42 98 Mask 9.0 I&O 09/26 0800 09/26 1600 09/27 0000 Intake Total 1982 3083 Output Total 1740 973 228 Balance 243 2110 -228 General Appearance Alert, Oriented X3, Cooperative, Moderate distress HEENT PERRLA, Moist mucous membranes, NG tube in place bilious type fluid in the suction canister Lungs Clear to auscultation Neck No JVD Cardiovascular Regular rate and rhythm Abdomen absent bowel sounds. Dressings dry and intact. Extremities No cyanosis Skin warm and dry Neurological No lateralizing signs Psych/Mental Status Mental status normal LAB Results Laboratory Tests 09/26 09/27 1445 0547 Chemistry Plasma Sodium (136 - 145 mmol/L) 136 134 Plasma Potassium (3.5 - 5.1 mmol/L) 4.1 4.7 Plasma Chloride (98 - 107 mmol/L) 101 102 CO2 (Enzymatic) (21 - 32 mmol/L) 26 22 BUN (7 - 18 mg/dL) 20 28 Creatinine (0.6 - 1.3 mg/dL) 1.0 1.0 Est GFR ( Amer) (mL/min) >60 >60 Est GFR (Non-Af Amer) (mL/min) >60 >60 Glucose (70 - 110 mg/dL) 485 440 Plasma Calcium (8.5 - 10.1 mg/dL) 7.5 7.7 Phosphorus (2.5 - 4.9 mg/dL) 4.6 Plasma Magnesium (1.8 - 2.4 mg/dL) 2.6 Coagulation INR (0.8 - 1.2) 1.0 Hematology WBC (4.5 - 11.5 K/uL) 21.9 RBC (4.00 - 5.20 M/uL) 4.69 Hgb (12.0 - 16.0 gm/dL) 14.1 13.8 Hct (36.0 - 46.0 %) 42.3 41.3 MCV (80 - 100 fL) 88 MCH (26 - 34 pg) 30 RDW (11.6 - 14.8 %) 15.3 Neut % (Auto) (50 - 75 %) 87.0 Lymph % (Auto) (25 - 40 %) 4.4 [place] % (Auto) (3 - 14 %) 8.5 Eos % (Auto) (0 - 4 %) 0.1 Baso % (Auto) (0 - 2 %) 0 Plt Count, EDTA (150 - 400 K/uL) 172 PUBS MCHC (31 - 37 g/dL) 34 Assessment and Plan Problem List 1. History of Billroth I operation Plan Stable postop day 1. Continue present management. 2. GI bleed Plan Postop hematocrit stable, continue present management
[2016-09-28] VITALS (23 sets, daily range): BP systolic 12–134; BP diastolic 37–67
--- NOTE | 2016-09-28 06:54 | Progress Note ---
Subjective General 55-year-old female postop day 2 status post Billroth I for bleeding duodenal ulcer. During the night, pulled out her NG tube. This morning, or shortness of breath or chest pain. Abdominal soreness, less than yesterday. No nausea. Physical Exam Vital Signs / I&Os Vital Signs Date Time Temp Pulse Resp B/P Pulse O2 O2 Flow FiO2 Ox Delivery Rate 06/05 0624 98.6 93 17 89/42 91 Nasal 5.0 Cannula 06/05 0511 99 18 99/45 91 Nasal 5.0 Cannula 06/05 0400 101 19 111/50 92 06/05 0300 99 18 127/49 92 Nasal 5.0 Cannula 06/05 0200 98.4 93 17 112/58 90 Nasal 6.0 Cannula 06/05 0100 95 16 86/40 95 06/05 0000 98 17 84/37 93 06/04 2300 98.8 94 19 94/49 91 Nasal 6.0 Cannula 06/04 2200 99.0 93 18 100/47 96 Nasal 6.0 Cannula 06/04 2100 91 18 104/48 94 Nasal 6.0 Cannula 06/04 2030 Nasal 6.0 Cannula 06/04 2002 98.4 92 18 86/47 92 Nasal 6.0 Cannula 06/04 1946 6.0 06/04 1900 98.6 90 18 78/44 92 Nasal 7.0 Cannula 06/04 1800 91 18 101/43 94 Nasal 7.0 Cannula 06/04 1700 91 18 106/44 94 Nasal 7.0 Cannula 06/04 1600 98.4 99 18 102/43 94 Nasal 7.0 Cannula 06/04 1500 98.8 99 18 102/44 93 Mask 7.0 06/04 1428 90 18 122/46 89 Mask 7.0 06/04 1312 94 14 91/40 90 Mask 7.0 06/04 1215 62 16 112/41 92 Mask 7.0 06/04 1100 98.8 60 16 107/39 99 Mask 7.0 06/04 1011 98.6 55 18 94/36 92 Mask 7.0 06/04 0903 98 12 122/48 89 Mask 7.0 06/04 0800 Nasal 7.0 Cannula 06/04 0800 88 16 138/50 90 Nasal 7.0 Cannula 06/04 0746 7.0 06/04 0700 98.6 88 18 144/50 90 Nasal 7.0 Cannula I&O 09/27 0800 09/27 1600 09/28 0000 Intake Total 1945 1372 1097 Output Total 304 264 316 Balance 1641 1108 781 General Appearance Alert, Oriented X3, Cooperative, No acute distress HEENT Moist mucous membranes Lungs Clear to auscultation Neck No JVD Cardiovascular Regular rate and rhythm Abdomen dressing dry and intact. Hypoactive bowel sounds. Kareem-Castañeda drain serous fluid Extremities No cyanosis Skin warm and dry Neurological No lateralizing signs Psych/Mental Status Mental status normal LAB Results Hematocrit 42 to 34. Laboratory Tests 09/28 09/28 0520 0520 Chemistry Plasma Sodium (136 - 145 mmol/L) 134 Plasma Potassium (3.5 - 5.1 mmol/L) 3.9 Plasma Chloride (98 - 107 mmol/L) 100 CO2 (Enzymatic) (21 - 32 mmol/L) 24 BUN (7 - 18 mg/dL) 34 Creatinine (0.6 - 1.3 mg/dL) 1.1 Est GFR ( Amer) (mL/min) >60 Est GFR (Non-Af Amer) (mL/min) 54.41 Glucose (70 - 110 mg/dL) 324 Plasma Calcium (8.5 - 10.1 mg/dL) 7.9 Plasma Magnesium (1.8 - 2.4 mg/dL) 2.1 Total Bilirubin (0.0 - 1.0 mg/dL) 0.5 AST (15 - 37 U/L) 149 ALT (12 - 78 U/L) 128 Alkaline Phosphatase (46 - 116 U/L) 118 Ammonia (11 - 32 umol/L) 25 Total Protein (6.4 - 8.2 g/dL) 4.4 Albumin (3.3 - 5.0 g/dL) 1.4 Coagulation INR (0.8 - 1.2) 1.4 Hematology WBC (4.5 - 11.5 K/uL) 24.4 RBC (4.00 - 5.20 M/uL) 3.94 Hgb (12.0 - 16.0 gm/dL) 11.8 Hct (36.0 - 46.0 %) 34.7 MCV (80 - 100 fL) 88 MCH (26 - 34 pg) 30 RDW (11.6 - 14.8 %) 15.2 Neut % (Auto) (50 - 75 %) 84 Lymph % (Auto) (25 - 40 %) 4 [place] % (Auto) (3 - 14 %) 5 Eos % (Auto) (0 - 4 %) 0 Baso % (Auto) (0 - 2 %) 0 Band Neutrophils % (0 - 8 %) 7 Metamyelocytes % (0 - 1 %) 0 Myelocytes (0 - 1 %) 0 Other Cell Type 0 Plt Count, EDTA (150 - 400 K/uL) 139 PUBS MCHC (31 - 37 g/dL) 34 Assessment and Plan Problem List 1. GI bleed Plan Drop in crit could be dilutional. No evidence of bleeding from Kareem's Castañeda drain. Continue to monitor hemoglobin and hematocrit. White count remains up to 24,000 2. History of Billroth I operation Plan The patient discontinued her NG tube , which was critical for decompression of the stomach. Kareem-Castañeda drain, however, has no evidence of succus entericus or bilious material. Patient otherwise stable. Continue present management.
--- NOTE | 2016-09-28 16:15 | Progress Note ---
Subjective General Patient seen and examined. Patient is still very sedated. Patient is getting adequate pain control. No major drop in hemoglobin noted. Patient is otherwise hemodynamically stable Constitutional Other (too sedated to communicate ). Physical Exam Vital Signs / I&Os Vital Signs Date Time Temp Pulse Resp B/P Pulse O2 O2 Flow FiO2 Ox Delivery Rate 10/02 1451 97.7 81 16 107/60 95 Room Air 10/02 1029 99.1 95 16 132/65 96 Room Air 10/02 0657 98.2 103 17 125/54 97 Room Air 10/02 0226 99.0 92 18 142/43 96 Room Air 10/01 2231 97.7 85 18 128/44 96 Room Air 10/01 2144 2.0 10/01 1945 Room Air 10/01 1828 97.5 82 16 90/70 95 I&O 10/01 0800 10/01 1600 10/02 0000 Intake Total 2036 340 1853 Output Total 946 1415 1840 Balance 1090 -1075 13 General Appearance No acute distress HEENT Atraumatic, PERRLA, Moist mucous membranes Lungs Clear to auscultation Neck No JVD, No masses Cardiovascular Normal S1 and S2, No murmurs, gallops, rubs Abdomen Soft, - surgical site looks appropriate - slight tenderness to palpation Extremities No edema, Normal pulses Skin No Breakdown Neurological Normal speech, Sensation intact, Cranial nerves intact, No lateralizing signs LAB Results Laboratory Tests 10/01 10/02 2120 0415 Chemistry Plasma Sodium (136 - 145 mmol/L) 135 Plasma Potassium (3.5 - 5.1 mmol/L) 3.2 Plasma Chloride (98 - 107 mmol/L) 99 CO2 (Enzymatic) (21 - 32 mmol/L) 25 BUN (7 - 18 mg/dL) 17 Creatinine (0.6 - 1.3 mg/dL) 0.7 Est GFR ( Amer) (mL/min) >60 Est GFR (Non-Af Amer) (mL/min) >60 Glucose (70 - 110 mg/dL) 136 Plasma Calcium (8.5 - 10.1 mg/dL) 8.7 Total Bilirubin (0.0 - 1.0 mg/dL) 0.4 AST (15 - 37 U/L) 140 ALT (12 - 78 U/L) 130 Alkaline Phosphatase (46 - 116 U/L) 294 Ammonia (11 - 32 umol/L) 9 Total Protein (6.4 - 8.2 g/dL) 6.0 Albumin (3.3 - 5.0 g/dL) 1.2 Hematology WBC (4.5 - 11.5 K/uL) 12.8 RBC (4.00 - 5.20 M/uL) 3.65 Hgb (12.0 - 16.0 gm/dL) 10.6 Hct (36.0 - 46.0 %) 31.5 MCV (80 - 100 fL) 86 MCH (26 - 34 pg) 29 RDW (11.6 - 14.8 %) 15.9 Neut % (Auto) (50 - 75 %) 76.6 Lymph % (Auto) (25 - 40 %) 11.6 [place] % (Auto) (3 - 14 %) 10.2 Eos % (Auto) (0 - 4 %) 1.3 Baso % (Auto) (0 - 2 %) 0.3 Plt Count, EDTA (150 - 400 K/uL) 218 PUBS MCHC (31 - 37 g/dL) 34 Urines Urine Color YELLOW Urine Appearance CLEAR Urine pH (5.0 - 8.0) 5.5 Ur Specific [place] (1.010 - 1.030) 1.010 Urine Protein (NEGATIVE) NEGATIVE Urine Ketones (NEGATIVE) NEGATIVE Urine Blood (NEGATIVE) 1+ Urine Nitrite (NEGATIVE) NEGATIVE Urine Bilirubin (NEGATIVE) NEGATIVE Urine Urobilinogen (0.2 - 1.0 EU/dL) 0.2 Ur Leukocyte Esterase (NEGATIVE) NEGATIVE Urine RBC (0 - 1 rbc/hpf) 1-3 Urine WBC (0 - 1 wbc/hpf) NONE SEEN Ur Epithelial Cells (0 - 5 EPI/hpf) 1-3 Urine Bacteria (NONE SEEN) NONE SEEN Urine Glucose (NEGATIVE) NEGATIVE Urine Comment CULT NOT INDICATED Assessment and Plan Problem List 1. Duodenal ulcer Plan Will continue to monitor patient's vital signs carefully for watching for hypotension We will continue to trend CBC Pain control is adequate at the moment Patient is hemodynamically stable currently We'll wait for return of bowel function 2. Diabetes mellitus Plan Patient currently on TPN. We'll continue to monitor patient's blood sugars carefully TPN created by dietitian and pharmacy 3. GI bleed Plan Secondary to duodenal ulcer We'll continually monitor CBC
[2016-09-29] VITALS (24 sets, daily range): BP systolic 94–133; BP diastolic 35–58
--- NOTE | 2016-09-29 06:33 | Progress Note ---
Subjective General 55-year-old female postop day 3 status post Billroth I for bleeding duodenal ulcer. No shortness of breath. No chest pain. Still complains of incisional discomfort. Nursing report that she had a bowel movement. Physical Exam Vital Signs / I&Os Kareem-Castañeda drain output for 24 hours approximately 1610 cc serous fluid. Vital Signs Date Time Temp Pulse Resp B/P Pulse O2 O2 Flow FiO2 Ox Delivery Rate 09/29 0611 99.7 98 16 99/39 92 Nasal 6.0 Cannula 09/29 0518 100 14 108/35 93 Nasal 6.0 Cannula 09/29 0412 105 20 112/55 93 Nasal 6.0 Cannula 09/29 0314 96 16 120/58 92 Nasal 6.0 Cannula 09/29 0206 99.1 98 16 117/56 93 Nasal 6.0 Cannula 09/29 0101 93 16 94/51 91 Nasal 6.0 Cannula 09/29 0014 98 16 98/51 92 Nasal 6.0 Cannula 09/28 2311 97 16 126/67 93 Nasal 5.0 Cannula 09/28 2238 99.9 09/28 2201 96 16 122/52 93 Nasal 5.0 Cannula 09/28 2009 98 16 95/47 92 Nasal 5.0 Cannula 09/28 2003 5.0 I&O 09/28 0800 06/ 1600 09/29 0000 Intake Total 1089 0 Output Total 1080 1552 651 Balance 9 -1552 -651 General Appearance Alert, Oriented X3, Cooperative, Mild distress HEENT Moist mucous membranes Lungs Clear to auscultation Neck No JVD Cardiovascular Regular rate and rhythm Abdomen hypoactive bowel sounds. Dressings dry and intact. Kareem-Castañeda drain putting out serous fluid. Extremities No clubbing Skin warm and dry Neurological No lateralizing signs Psych/Mental Status Mental status normal LAB Results Hematocrit stable. White count still elevated. Laboratory Tests 09/29 0430 Chemistry Plasma Sodium (136 - 145 mmol/L) 132 Plasma Potassium (3.5 - 5.1 mmol/L) 3.8 Plasma Chloride (98 - 107 mmol/L) 101 CO2 (Enzymatic) (21 - 32 mmol/L) 22 BUN (7 - 18 mg/dL) 35 Creatinine (0.6 - 1.3 mg/dL) 1.0 Est GFR ( Amer) (mL/min) >60 Est GFR (Non-Af Amer) (mL/min) >60 Glucose (70 - 110 mg/dL) 295 Plasma Calcium (8.5 - 10.1 mg/dL) 8.4 Total Bilirubin (0.0 - 1.0 mg/dL) 0.5 AST (15 - 37 U/L) 41 ALT (12 - 78 U/L) 80 Alkaline Phosphatase (46 - 116 U/L) 140 Total Protein (6.4 - 8.2 g/dL) 5.3 Albumin (3.3 - 5.0 g/dL) 1.1 Hematology WBC (4.5 - 11.5 K/uL) 22.0 RBC (4.00 - 5.20 M/uL) 3.78 Hgb (12.0 - 16.0 gm/dL) 11.0 Hct (36.0 - 46.0 %) 33.4 MCV (80 - 100 fL) 89 MCH (26 - 34 pg) 29 RDW (11.6 - 14.8 %) 15.5 Neut % (Auto) (50 - 75 %) 88.1 Lymph % (Auto) (25 - 40 %) 4.4 [place] % (Auto) (3 - 14 %) 7.2 Eos % (Auto) (0 - 4 %) 0.3 Baso % (Auto) (0 - 2 %) 0 Plt Count, EDTA (150 - 400 K/uL) 168 PUBS MCHC (31 - 37 g/dL) 33 Assessment and Plan Problem List 1. GI bleed Plan Hematocrit stable. Continue present management. 2. History of Billroth I operation Plan Postop day 3. Stable. We may obtain get a Gastrografin upper GI series tomorrow.
--- NOTE | 2016-09-29 15:11 | Progress Note ---
Subjective General Patient seen and examined this morning. Patient had no acute events overnight. Patient did have a 3 g drop in hemoglobin since the day of her operation. Patient had 2 bowel movements last night which contained maroon blood. Hemoglobin this morning was relatively stable in comparison to yesterday. Most likely the blood that was in the bowel movement was secondary to the initial blood loss presented the day after the surgery. Patient is otherwise hemodynamically stable. Patient is putting out a fair amount of fluid in the ascites and urine output combined. Currently patient is still actively recovering from her surgery. Otherwise Constitutional Other (sedated- uanble to cooperate ). Physical Exam Vital Signs / I&Os Vital Signs Date Time Temp Pulse Resp B/P Pulse O2 O2 Flow FiO2 Ox Delivery Rate 09/29 1503 91 16 125/56 98 Nasal 3.0 Cannula 06/06 1408 90 16 124/55 97 Nasal 3.0 Cannula 06/06 1319 70 16 122/52 97 Nasal 3.0 Cannula 06/06 1234 95 16 120/53 94 Nasal 3.0 Cannula 06/06 1119 98 16 122/54 92 Nasal 3.0 Cannula 06/06 1025 94 16 125/54 92 Nasal 3.0 Cannula 06/06 0900 99.3 95 16 119/52 92 Nasal 3.0 Cannula 06/06 0806 97 16 114/41 100 Nasal 3.0 Cannula 06/06 0804 Nasal 3.0 Cannula 06/06 0717 99.3 103 18 112/40 91 Nasal 3.0 Cannula 06/06 0705 5.0 06/06 0611 99.7 98 16 99/39 92 Nasal 6.0 Cannula 06/06 0518 100 14 108/35 93 Nasal 6.0 Cannula 06/06 0412 105 20 112/55 93 Nasal 6.0 Cannula 06/06 0314 96 16 120/58 92 Nasal 6.0 Cannula 06/06 0206 99.1 98 16 117/56 93 Nasal 6.0 Cannula 06/06 0101 93 16 94/51 91 Nasal 6.0 Cannula 06/06 0014 98 16 98/51 92 Nasal 6.0 Cannula 06/05 2311 97 16 126/67 93 Nasal 5.0 Cannula 06/05 2238 99.9 06/05 2201 96 16 122/52 93 Nasal 5.0 Cannula 06/05 2009 98 16 95/47 92 Nasal 5.0 Cannula 06/05 2002 5.0 09/29 1999 Nasal 5.0 Cannula 09/28 1911 102 16 103/51 93 Nasal 5.0 Cannula 09/28 1817 100.0 108 16 134/56 94 Nasal 5.0 Cannula 09/28 1711 102 16 120/53 94 Nasal 5.0 Cannula 09/28 1648 5.0 09/28 1611 107 16 112/48 90 Nasal 5.0 Cannula 09/28 1515 99 16 101/51 93 Nasal 5.0 Cannula I&O 09/28 0800 09/28 1600 09/29 0000 Intake Total 1089 0 Output Total 1080 1552 651 Balance 9 -1552 -651 General Appearance Alert, Oriented X3, No acute distress HEENT Atraumatic, PERRLA, Moist mucous membranes Lungs Clear to auscultation, - slight basilar ronchi Neck Supple, No JVD Cardiovascular Regular rate and rhythm, No murmurs, gallops, rubs Abdomen - slightly distended - tenderness to palpation - eva draining sahara fluid Extremities No edema, Normal pulses, No tenderness Skin No Breakdown Neurological Normal tone, Sensation intact, Cranial nerves intact, No lateralizing signs Psych/Mental Status Mood normal LAB Results Laboratory Tests 09/29 09/29 0430 1105 Chemistry Plasma Sodium (136 - 145 mmol/L) 132 Plasma Potassium (3.5 - 5.1 mmol/L) 3.8 Plasma Chloride (98 - 107 mmol/L) 101 CO2 (Enzymatic) (21 - 32 mmol/L) 22 BUN (7 - 18 mg/dL) 35 Creatinine (0.6 - 1.3 mg/dL) 1.0 Est GFR ( Amer) (mL/min) >60 Est GFR (Non-Af Amer) (mL/min) >60 Glucose (70 - 110 mg/dL) 295 Plasma Calcium (8.5 - 10.1 mg/dL) 8.4 Total Bilirubin (0.0 - 1.0 mg/dL) 0.5 AST (15 - 37 U/L) 41 ALT (12 - 78 U/L) 80 Alkaline Phosphatase (46 - 116 U/L) 140 Total Protein (6.4 - 8.2 g/dL) 5.3 Albumin (3.3 - 5.0 g/dL) 1.1 Hematology WBC (4.5 - 11.5 K/uL) 22.0 20.9 RBC (4.00 - 5.20 M/uL) 3.78 3.71 Hgb (12.0 - 16.0 gm/dL) 11.0 10.7 Hct (36.0 - 46.0 %) 33.4 32.5 MCV (80 - 100 fL) 89 88 MCH (26 - 34 pg) 29 29 RDW (11.6 - 14.8 %) 15.5 15.4 Neut % (Auto) (50 - 75 %) 88.1 49 Lymph % (Auto) (25 - 40 %) 4.4 8 [place] % (Auto) (3 - 14 %) 7.2 10 Eos % (Auto) (0 - 4 %) 0.3 0 Baso % (Auto) (0 - 2 %) 0 0 Band Neutrophils % (0 - 8 %) 33 Metamyelocytes % (0 - 1 %) 0 Myelocytes (0 - 1 %) 0 Other Cell Type 0 Plt Count, EDTA (150 - 400 K/uL) 168 185 Polychromasia RARE Anisocytosis (manual) 1+ PUBS MCHC (31 - 37 g/dL) 33 33 Assessment and Plan Problem List 1. GI bleed Plan Patient had active duodenal ulcer bleed Patient underwent partial pneumonectomy with anastomosis. Patient has been recovering since patient isn't stool a fair amount of pain secondary to surgery. Patient has return of bowel function in that past blood-tinged stool We'll continue with TPN We'll continue with PPIs and Carafate solution We'll avoid any manipulation to the anastomosis site We'll track input and output Will await return of complete bowel function before starting diet 2. Diabetes mellitus Plan Blood sugars improved compared to yesterday We'll increase Lantus from 40 units to 60 We'll continue to track sugars and have sliding scale initiated Will repeat CMP in the a.m. 3. Liver cirrhosis Plan Stable Patient is putting out a fair amount of fluid through the EVA We'll continue to monitor fluid for any sort of bleeding 4. ARF (acute renal failure) Plan Resolved 5. Seizure disorder Plan No seizures noted Will continue with medication 6. Vaginal candidiasis Plan Patient was seen to have a fair amount of thick white discharge from vagina We'll treat with fluconazole Patient received loading dose yesterday we'll continue with 400 mg daily On exam patient is much improved compared to yesterday
[2016-09-30] VITALS (23 sets, daily range): BP systolic 98–128; BP diastolic 34–57
--- NOTE | 2016-09-30 06:51 | Progress Note ---
Subjective General 55-year-old female postop day 4 status post Billroth I for bleeding duodenal ulcer. Out of bed, sitting in a chair. A postauricular incision. No shortness of breath or chest pain. Passing flatus. No nausea or vomiting. Physical Exam Vital Signs / I&Os Kareem-Castañeda drainage last 24 hours approximately 945 cc serous fluid. Vital Signs Date Time Temp Pulse Resp B/P Pulse O2 O2 Flow FiO2 Ox Delivery Rate 09/30 0612 98.2 93 20 100/43 93 Nasal 4.0 Cannula /07 0510 95 16 109/42 94 Nasal 4.0 Cannula 06/07 0411 98 16 126/48 93 Mask 4.0 06/07 0310 94 18 105/43 91 Mask 4.0 06/07 0209 97.3 99 18 115/51 92 Mask 4.0 06/07 0113 99 20 123/46 95 Mask 4.0 06/07 0013 100 96 116/47 95 Mask 4.0 I&O 09/29 0800 / 1600 09/30 0000 Intake Total 2627 0 1460 Output Total 582 1153 801 Balance 2045 -1153 659 General Appearance Alert, Oriented X3, Cooperative, No acute distress HEENT Moist mucous membranes Lungs Clear to auscultation Neck No JVD Cardiovascular Regular rate and rhythm Abdomen dressings dry and intact. Kareem-Castaeñda output serous Extremities No cyanosis Skin warm and dry Neurological No lateralizing signs Psych/Mental Status Mental status normal LAB Results White count remains elevated at 20.9. Hematocrit stable at 32.5 Laboratory Tests 09/29 1105 Hematology WBC (4.5 - 11.5 K/uL) 20.9 RBC (4.00 - 5.20 M/uL) 3.71 Hgb (12.0 - 16.0 gm/dL) 10.7 Hct (36.0 - 46.0 %) 32.5 MCV (80 - 100 fL) 88 MCH (26 - 34 pg) 29 RDW (11.6 - 14.8 %) 15.4 Neut % (Auto) (50 - 75 %) 49 Lymph % (Auto) (25 - 40 %) 8 [place] % (Auto) (3 - 14 %) 10 Eos % (Auto) (0 - 4 %) 0 Baso % (Auto) (0 - 2 %) 0 Band Neutrophils % (0 - 8 %) 33 Metamyelocytes % (0 - 1 %) 0 Myelocytes (0 - 1 %) 0 Other Cell Type 0 Plt Count, EDTA (150 - 400 K/uL) 185 Polychromasia RARE Anisocytosis (manual) 1+ PUBS MCHC (31 - 37 g/dL) 33 Assessment and Plan Problem List 1. Anemia Plan Stable hematocrit. Continue present management. 2. History of Billroth I operation Plan Stable postoperative course. We will get a Gastrografin upper GI series today.
--- NOTE | 2016-09-30 11:21 | DIAGNOSTIC IMAGING REPORT ---
PROCEDURE: XR ABDOMEN 1 VIEW INDICATION: S/P BILLIROTH I PRE-UGI/GASTROVIEW TECHNIQUE: Single view supine abdomen. COMPARISON: No relevant priors. FINDINGS: Small amount of gas in the stomach is seen. Minimal small bowel gas. Normal amount of gas in the colon. Flat CHAVO drain in the right upper quadrant. And to anastomotic staple lines are seen in the epigastric region on either side of the spine. Surgical clips in the gallbladder fossa. Skin edwin in the midline. Moderately enlarged liver shadow. Intact osseous structures. IMPRESSION: 1. Postsurgical changes in the upper abdomen. 2. Moderately enlarged liver consistent with cirrhosis.
--- NOTE | 2016-09-30 15:04 | Progress Note ---
Subjective General Patient seen and examined this morning. Patient is doing very well and had no acute events overnight. Patient is much more active than compared to 3 days before. Patient has return of bowel function. Patient will be going for Gastrografin study today. Constitutional Weakness. Denies: Fever, Chills, Sweats, Malaise, Other. Eyes Denies: Pain, Vision Change, Conjunctival Inflammation, Eyelid Inflammation, Redness, Other. ENT Denies: Ear Pain, Ear Discharge, Nose Pain, Nasal Discharge, Nasal Congestion, Mouth Pain, Mouth Swelling, Throat Pain, Throat Swelling, Other. Respiratory Denies: Cough, Dry, SOB w/exertion, Wheezing, Hemoptysis, Pleuritic Pain, Sputum , Other. Cardiovascular Denies: Chest Pain, Palpitations, Orthopnea, PND, Edema, Light-headedness, Other. Gastrointestinal Denies: Nausea, Vomiting, Abdominal Pain, Diarrhea, Constipation, Melena, Hematochezia, Other. Genitourinary Denies: Dysuria, Frequency, Incontinence, Hematuria, Retention, Other. Musculoskeletal Denies: Neck Pain, Shoulder Pain, Arm Pain, Back Pain, Hand Pain, Leg Pain, Foot Pain, Other. Neurological Denies: Weakness, Numbness, Incoordination, Change in speech, Confusion, Seizures, Other. Physical Exam Vital Signs / I&Os Vital Signs Date Time Temp Pulse Resp B/P Pulse O2 O2 Flow FiO2 Ox Delivery Rate 09/30 1513 83 18 115/48 95 Nasal 4.0 Cannula 06/07 1403 62 18 121/46 93 Nasal 4.0 Cannula 06/07 1133 84 16 128/55 95 Nasal 4.0 Cannula 06/07 1003 98.8 87 16 117/51 96 Nasal 4.0 Cannula 06/07 0905 86 16 100/43 97 Nasal 4.0 Cannula 06/07 0800 Nasal 4.0 Cannula 06/07 0800 93 16 104/45 95 Nasal 4.0 Cannula 06/07 0747 4.0 06/07 0710 99.0 90 16 98/50 95 Nasal 4.0 Cannula 06/07 0612 98.2 93 20 100/43 93 Nasal 4.0 Cannula 06/07 0510 95 16 109/42 94 Nasal 4.0 Cannula 06/07 0411 98 16 126/48 93 Mask 4.0 06/07 0310 94 18 105/43 91 Mask 4.0 06/07 0209 97.3 99 18 115/51 92 Mask 4.0 09/30 0113 99 20 123/46 95 Mask 4.0 09/30 0013 100 96 116/47 95 Mask 4.0 09/29 2315 97 16 121/49 94 Nasal 4.0 Cannula 09/29 2231 98.8 09/29 2207 95 16 111/48 94 Nasal 4.0 Cannula 09/29 2106 93 16 107/42 93 Nasal 4.0 Cannula 09/29 2027 Nasal 4.0 Cannula 09/29 2000 100 16 133/51 92 Nasal 4.0 Cannula 09/29 1906 90 16 117/55 94 Nasal 4.0 Cannula 09/29 1816 97.7 89 16 127/50 96 Nasal 3.0 Cannula 09/29 1712 84 16 121/54 97 Nasal 3.0 Cannula 09/29 1604 85 16 116/48 94 Nasal 3.0 Cannula I&O 09/29 0800 06/ 1600 09/30 0000 Intake Total 2627 0 1460 Output Total 582 1153 801 Balance 2045 -1153 659 General Appearance Alert, Oriented X3, No acute distress HEENT Atraumatic, PERRLA, Moist mucous membranes Lungs Clear to auscultation Neck Supple, No JVD, No masses Cardiovascular Normal S1 and S2, No murmurs, gallops, rubs Abdomen Soft, No tenderness Extremities No clubbing, No edema, Normal pulses Skin No Breakdown Neurological Normal gait, Normal speech, Sensation intact, Cranial nerves intact , No lateralizing signs Psych/Mental Status Mood normal LAB Results Laboratory Tests 09/30 704 Chemistry Plasma Sodium (136 - 145 mmol/L) 138 Plasma Potassium (3.5 - 5.1 mmol/L) 4.1 Plasma Chloride (98 - 107 mmol/L) 103 CO2 (Enzymatic) (21 - 32 mmol/L) 23 BUN (7 - 18 mg/dL) 26 Creatinine (0.6 - 1.3 mg/dL) 0.9 Est GFR ( Amer) (mL/min) >60 Est GFR (Non-Af Amer) (mL/min) >60 Glucose (70 - 110 mg/dL) 279 Plasma Calcium (8.5 - 10.1 mg/dL) 9.0 Total Bilirubin (0.0 - 1.0 mg/dL) 0.5 AST (15 - 37 U/L) 48 ALT (12 - 78 U/L) 56 Alkaline Phosphatase (46 - 116 U/L) 184 Total Protein (6.4 - 8.2 g/dL) 5.7 Albumin (3.3 - 5.0 g/dL) 1.1 Hematology WBC (4.5 - 11.5 K/uL) 16.4 RBC (4.00 - 5.20 M/uL) 3.54 Hgb (12.0 - 16.0 gm/dL) 10.3 Hct (36.0 - 46.0 %) 31.0 MCV (80 - 100 fL) 88 MCH (26 - 34 pg) 29 RDW (11.6 - 14.8 %) 15.5 Neut % (Auto) (50 - 75 %) 70 Lymph % (Auto) (25 - 40 %) 3 [place] % (Auto) (3 - 14 %) 10 Eos % (Auto) (0 - 4 %) 0 Baso % (Auto) (0 - 2 %) 0 Band Neutrophils % (0 - 8 %) 17 Metamyelocytes % (0 - 1 %) 0 Myelocytes (0 - 1 %) 0 Other Cell Type 0 Plt Count, EDTA (150 - 400 K/uL) 204 Anisocytosis (manual) 1+ PUBS MCHC (31 - 37 g/dL) 33 Assessment and Plan Problem List 1. Duodenal ulcer Plan Patient initially presented with bleeding duodenal ulcer Patient despite multiple scopes still had bleeding Patient went for laminectomy and re-anastomosis Patient is having return of bowel function Patient will go for Gastrografin study today We'll continue to trend CBC Will continue TPN for the time being 2. Diabetes Plan Patient has an established history of diabetes Initially I was hesitant to increase patient's Lantus dose due to periods of hypoglycemia in the past Will increase Lantus to 55 units today Will monitor sugars closely to avoid periods of hypoglycemia 3. ARF (acute renal failure) Plan Resolved 4. Vaginal candidiasis Plan Patient had evidence of vaginal candidiasis We'll treat with fluconazole Patient currently on fluconazole 400 daily We'll continue for 7 days No evidence of discharge noted now 5. Anemia Plan Patient has anemia secondary to GI bleed We'll continue to monitor hemoglobin
--- NOTE | 2016-09-30 15:20 | DIAGNOSTIC IMAGING REPORT ---
PROCEDURE: XR UPPER GI WITH GASTROGRAFIN INDICATION: status post Billroth I. Check for anastomotic leak. TECHNIQUE: The patient drank 120 ml of gastrographin by mouth. Real time fluoroscopy is used to evaluate the gastroduodenal anastomosis. Total fluoro time 3.7 minutes. Cumulative dose 2895.68 mGy COMPARISON: Abdomen x-ray performed the same day. CT performed 09/12/2016 FINDINGS: There has been resection of the distal stomach and pylorus. A faint staple line is visible. The anastomosis courses posterior to the distal stomach. No evidence of an anastomotic leak. There is prompt gastric emptying into mildly prominent left upper quadrant small bowel loops. No suspicious retroperitoneal or lesser sac fluid collections. A flat CHAVO drain is seen within the vicinity. There are surgical clips of cholecystectomy. IMPRESSION: 1. No visible anastomotic leak by fluoroscopy at the gastroduodenal anastomosis. 2. A confirmatory CT of the abdomen will be performed.
--- NOTE | 2016-09-30 16:08 | DIAGNOSTIC IMAGING REPORT ---
PROCEDURE: CT ABDOMEN WITHOUT CONTRAST INDICATION: S/P BILROTH PROCEDURE, ATTN ANASTOMOSIS TECHNIQUE: Axial CT images were obtained of the abdomen. Coronal and sagittal reformations created. Gastrographin oral contrast only to assess for an anastomotic integrity. COMPARISON: Fluoroscopy performed the same day. CT abdomen pelvis 09/12/2016. FINDINGS: There are surgical changes of the lower upon (and distal gastric and proximal duodenal resection and primary reanastomosis. There are linear surgical changes around the distal stomach. No evidence of contrast extravasation. The remainder of the duodenum is normal caliber. Left upper quadrant bowel loops are of normal caliber. The terminal ileum is visible on the study and the small amount of gastrographin is present in the proximal colon. A flat CHAVO drain is present in the right upper quadrant of the abdomen below the liver. The tip is approximately 4 cm away from the gastroduodenal anastomosis. Small amount of post surgical fluid is present in the lesser sac, caudal to the left lobe of the liver, in the gallbladder fossa, and caudal to the right liver. No suspicious fluid collections. Small bilateral pleural effusions are present. Heart size is at the upper limits of normal. Moderate bibasilar atelectatic changes. Cirrhotic liver morphology with hepatomegaly. Splenomegaly. Lobulated, fat containing left adrenal mass, chronic normal right adrenal gland and pancreas. Multiple lymph nodes present throughout the epigastric retroperitoneum, lesser sac, kristine hepatis, and lower retroperitoneum, likely reactive. Normal unenhanced appearance of the kidneys. Surgically absent gallbladder. Moderate scattered calcific atherosclerosis. Skin edwin fixing a midline incision. Intact osseous structures. IMPRESSION: 1. No evidence of gastroduodenal anastomotic leak. 2. Small to moderate amount of residual postsurgical fluid in the epigastric region, lesser sac, and right upper quadrant. No unusual drainable fluid collection. 3. A CHAVO drain in place, about 4 cm from the anastomosis. 4. Small bilateral pleural effusions and bibasilar atelectatic changes. 5. No evidence of ileus or bowel obstruction. 6. Reactive adenopathy. 7. Changes of hepatic cirrhosis and portal hypertension. 8. Preliminary findings discussed with Dr. Zuñiga.
[2016-10-01] VITALS (10 sets, daily range): BP systolic 90–129; BP diastolic 39–70
--- NOTE | 2016-10-01 06:52 | Progress Note ---
Subjective General 55-year-old female who is postop day #5, status post Billroth I for bleeding duodenal ulcer. Yesterday patient had Gastrografin upper GI series which showed no evidence of leak and passage of contrast material rapidly into colon. Patient states that she has had several bowel movements. Patient states that she has been ambulatory. Patient denies any shortness of breath or chest pain. Patient has some minimal incisional discomfort. Physical Exam Vital Signs / I&Os Approximately 1880 cc the drainage from the Kareem-Castañeda I/24 hours. Vital Signs Date Time Temp Pulse Resp B/P Pulse O2 O2 Flow FiO2 Ox Delivery Rate 10/01 0510 77 16 127/41 96 Nasal 2.0 Cannula 10/01 0315 82 16 119/39 93 Nasal 2.0 Cannula 09/30 2001 3.0 09/30 1910 83 18 114/55 96 Nasal 3.0 Cannula 09/30 1809 98.8 85 18 126/52 93 Nasal 4.0 I&O 09/30 0800 09/30 1600 10/01 0000 Intake Total 1944 1234 0 Output Total 1002 1330 1685 Balance General Appearance Alert, Oriented X3, Cooperative, No acute distress HEENT Moist mucous membranes Lungs Clear to auscultation Neck Supple Cardiovascular Regular rate and rhythm Abdomen Normal bowel sounds, Kareem-Castañeda drainage serous.(ascites). Dressing dry and intact Extremities No cyanosis Skin warm and dry Neurological No lateralizing signs Psych/Mental Status Mental status normal LAB Results White count down to 16.4. Laboratory Tests 09/30 07 Chemistry Plasma Sodium (136 - 145 mmol/L) 138 Plasma Potassium (3.5 - 5.1 mmol/L) 4.1 Plasma Chloride (98 - 107 mmol/L) 103 CO2 (Enzymatic) (21 - 32 mmol/L) 23 BUN (7 - 18 mg/dL) 26 Creatinine (0.6 - 1.3 mg/dL) 0.9 Est GFR ( Amer) (mL/min) >60 Est GFR (Non-Af Amer) (mL/min) >60 Glucose (70 - 110 mg/dL) 279 Plasma Calcium (8.5 - 10.1 mg/dL) 9.0 Total Bilirubin (0.0 - 1.0 mg/dL) 0.5 AST (15 - 37 U/L) 48 ALT (12 - 78 U/L) 56 Alkaline Phosphatase (46 - 116 U/L) 184 Total Protein (6.4 - 8.2 g/dL) 5.7 Albumin (3.3 - 5.0 g/dL) 1.1 Hematology WBC (4.5 - 11.5 K/uL) 16.4 RBC (4.00 - 5.20 M/uL) 3.54 Hgb (12.0 - 16.0 gm/dL) 10.3 Hct (36.0 - 46.0 %) 31.0 MCV (80 - 100 fL) 88 MCH (26 - 34 pg) 29 RDW (11.6 - 14.8 %) 15.5 Neut % (Auto) (50 - 75 %) 70 Lymph % (Auto) (25 - 40 %) 3 [place] % (Auto) (3 - 14 %) 10 Eos % (Auto) (0 - 4 %) 0 Baso % (Auto) (0 - 2 %) 0 Band Neutrophils % (0 - 8 %) 17 Metamyelocytes % (0 - 1 %) 0 Myelocytes (0 - 1 %) 0 Other Cell Type 0 Plt Count, EDTA (150 - 400 K/uL) 204 Anisocytosis (manual) 1+ PUBS MCHC (31 - 37 g/dL) 33 Assessment and Plan Problem List 1. GI bleed Plan The medically stable, patient for GI bleed, resolved. 2. History of Billroth I operation Plan Postop stable. No evidence of anastomotic leak. We will start clear liquid diet today.
--- NOTE | 2016-10-01 16:04 | Progress Note ---
Subjective General Patient seen and examined. Patient is doing better. Patient has no drop in hemoglobin. Patient's white blood cell count is coming down appropriately. No acute events overnight ENT Denies: Ear Pain, Ear Discharge, Nose Pain, Nasal Discharge, Nasal Congestion, Mouth Pain, Mouth Swelling, Throat Pain, Throat Swelling, Other. Respiratory Denies: Cough, Dry, SOB w/exertion, Wheezing, Hemoptysis, Pleuritic Pain, Sputum , Other. Gastrointestinal Abdominal Pain. Denies: Nausea, Vomiting, Diarrhea, Constipation, Melena, Hematochezia, Other. Genitourinary Denies: Dysuria, Frequency, Incontinence, Hematuria, Retention, Other. Musculoskeletal Denies: Neck Pain, Shoulder Pain, Arm Pain, Back Pain, Hand Pain, Leg Pain, Foot Pain, Other. Physical Exam Vital Signs / I&Os Vital Signs Date Time Temp Pulse Resp B/P Pulse O2 O2 Flow FiO2 Ox Delivery Rate 10/02 1451 97.7 81 16 107/60 95 Room Air 10/02 1029 99.1 95 16 132/65 96 Room Air 10/02 0657 98.2 103 17 125/54 97 Room Air 10/02 0226 99.0 92 18 142/43 96 Room Air 10/01 2231 97.7 85 18 128/44 96 Room Air 10/01 2144 2.0 10/01 1945 Room Air 10/01 1828 97.5 82 16 90/70 95 I&O 10/01 0800 /08 1600 10/02 0000 Intake Total 2036 340 1853 Output Total 946 1415 1840 Balance 1090 -1075 13 General Appearance Alert, Oriented X3, No acute distress HEENT Atraumatic, PERRLA, Moist mucous membranes Lungs Clear to auscultation Neck Supple, No JVD Cardiovascular Regular rate and rhythm, No murmurs, gallops, rubs Abdomen Soft, - tenderness to palpation Extremities No edema, Normal pulses, No tenderness Skin No Breakdown Neurological Normal speech, Cranial nerves intact, No lateralizing signs LAB Results Laboratory Tests 10/01 10/02 2120 0415 Chemistry Plasma Sodium (136 - 145 mmol/L) 135 Plasma Potassium (3.5 - 5.1 mmol/L) 3.2 Plasma Chloride (98 - 107 mmol/L) 99 CO2 (Enzymatic) (21 - 32 mmol/L) 25 BUN (7 - 18 mg/dL) 17 Creatinine (0.6 - 1.3 mg/dL) 0.7 Est GFR ( Amer) (mL/min) >60 Est GFR (Non-Af Amer) (mL/min) >60 Glucose (70 - 110 mg/dL) 136 Plasma Calcium (8.5 - 10.1 mg/dL) 8.7 Total Bilirubin (0.0 - 1.0 mg/dL) 0.4 AST (15 - 37 U/L) 140 ALT (12 - 78 U/L) 130 Alkaline Phosphatase (46 - 116 U/L) 294 Ammonia (11 - 32 umol/L) 9 Total Protein (6.4 - 8.2 g/dL) 6.0 Albumin (3.3 - 5.0 g/dL) 1.2 Hematology WBC (4.5 - 11.5 K/uL) 12.8 RBC (4.00 - 5.20 M/uL) 3.65 Hgb (12.0 - 16.0 gm/dL) 10.6 Hct (36.0 - 46.0 %) 31.5 MCV (80 - 100 fL) 86 MCH (26 - 34 pg) 29 RDW (11.6 - 14.8 %) 15.9 Neut % (Auto) (50 - 75 %) 76.6 Lymph % (Auto) (25 - 40 %) 11.6 [place] % (Auto) (3 - 14 %) 10.2 Eos % (Auto) (0 - 4 %) 1.3 Baso % (Auto) (0 - 2 %) 0.3 Plt Count, EDTA (150 - 400 K/uL) 218 PUBS MCHC (31 - 37 g/dL) 34 Urines Urine Color YELLOW Urine Appearance CLEAR Urine pH (5.0 - 8.0) 5.5 Ur Specific [place] (1.010 - 1.030) 1.010 Urine Protein (NEGATIVE) NEGATIVE Urine Ketones (NEGATIVE) NEGATIVE Urine Blood (NEGATIVE) 1+ Urine Nitrite (NEGATIVE) NEGATIVE Urine Bilirubin (NEGATIVE) NEGATIVE Urine Urobilinogen (0.2 - 1.0 EU/dL) 0.2 Ur Leukocyte Esterase (NEGATIVE) NEGATIVE Urine RBC (0 - 1 rbc/hpf) 1-3 Urine WBC (0 - 1 wbc/hpf) NONE SEEN Ur Epithelial Cells (0 - 5 EPI/hpf) 1-3 Urine Bacteria (NONE SEEN) NONE SEEN Urine Glucose (NEGATIVE) NEGATIVE Urine Comment CULT NOT INDICATED Assessment and Plan Problem List 1. GI bleed Plan Secondary to duodenal ulcer patient is status post duodenectomy and reanastomosis We'll continue to monitor hemoglobin carefully Patient has return of bowel function Patient is passing maroon-colored stool We will monitor CBC We'll continue TPN for the time being 2. Diabetes mellitus Plan Patient's blood sugars are better controlled We will advance Lantus dose to 60 units twice a day We'll continually monitor patient's blood sugars Will wean off TPN 3. Vaginal candidiasis Plan We'll continue with fluconazole 400 mg daily No worsening vaginal discharge noted 4. Liver cirrhosis Plan Chronic condition We'll continue with CHAVO drainage of ascites fluid
[2016-10-02 02:26] VITALS: BP 142/43
--- NOTE | 2016-10-02 02:55 | Progress Note ---
Subjective General Talked to Erlinda, she states her abdominal pain is getting better, able to eat some, but c/o anxiety, alert and oriented to place,and person but has difficulty with Time, seems restless able to site on bed, will give ativan for anxiety, increase morphin to Q2h
[2016-10-02 06:57] VITALS: BP 125/54
--- NOTE | 2016-10-02 07:11 | Progress Note ---
Subjective General 55-year-old female postop day postop day #6. Status post Billroth I for bleeding duodenal ulcer. Started on clear liquids yesterday. Passing flatus. Rough night. According nursing staff. Patient confused, complaining of discomfort, could not get comfortable and did not get any sleep. The patient at present, conversant and somnolent, probably secondary to medication. Not complaining of any shortness of breath or chest pain. Continues to put out a lot of serous fluid from her Kareem-Castañeda drain. Total protein 6. Albumin is around 1.2. Liver function studies slowly creeping up. See labs are Physical Exam Vital Signs / I&Os Kareem-Castañeda drain, approximately 1350 over 24 hours. Vital Signs Date Time Temp Pulse Resp B/P Pulse O2 O2 Flow FiO2 Ox Delivery Rate 10/02 0657 98.2 103 17 125/54 97 Room Air 10/02 0226 99.0 92 18 142/43 96 Room Air 10/01 2231 97.7 85 18 128/44 96 Room Air 10/01 2144 2.0 I&O 10/01 0800 10/01 1600 10/02 0000 Intake Total 2036 340 1853 Output Total 946 1415 1840 Balance 1090 -1075 13 General Appearance Mild distress, somnolent but conversant. He responds appropriately to questioning. HEENT Moist mucous membranes Lungs Clear to auscultation Neck No JVD Cardiovascular Regular rate and rhythm Abdomen hypoactive bowel sounds. Distended. No tympany. Tender to palpation. Kareem-Castañeda drain putting out serous fluid. [place] Baths removed and replaced with Steri-Strips. Kareem-Castañeda drain discontinued, serving no purpose and then draining ascites. This is a potential source of infection if left in place for a prolonged period of time g periods of time Extremities No cyanosis Skin warm and dry Neurological somnolent. He easily arousable and answering appropriately. Moving all extremities appropriately Psych/Mental Status somnolent LAB Results Laboratory Tests 10/01 10/01 10/02 0715 2120 2455 Chemistry Plasma Sodium (136 - 145 mmol/L) 138 135 Plasma Potassium (3.5 - 5.1 mmol/L) 3.6 3.2 Plasma Chloride (98 - 107 mmol/L) 103 99 CO2 (Enzymatic) (21 - 32 mmol/L) 27 25 BUN (7 - 18 mg/dL) 21 17 Creatinine (0.6 - 1.3 mg/dL) 0.6 0.7 Est GFR ( Amer) (mL/min) >60 >60 Est GFR (Non-Af Amer) (mL/min) >60 >60 Glucose (70 - 110 mg/dL) 132 136 Plasma Calcium (8.5 - 10.1 mg/dL) 8.5 8.7 Total Bilirubin (0.0 - 1.0 mg/dL) 0.4 0.4 AST (15 - 37 U/L) 142 140 ALT (12 - 78 U/L) 94 130 Alkaline Phosphatase (46 - 116 U/L) 226 294 Ammonia (11 - 32 umol/L) 9 Total Protein (6.4 - 8.2 g/dL) 4.8 6.0 Albumin (3.3 - 5.0 g/dL) 1.1 1.2 Hematology WBC (4.5 - 11.5 K/uL) 12.4 12.8 RBC (4.00 - 5.20 M/uL) 3.52 3.65 Hgb (12.0 - 16.0 gm/dL) 10.2 10.6 Hct (36.0 - 46.0 %) 30.6 31.5 MCV (80 - 100 fL) 87 86 MCH (26 - 34 pg) 29 29 RDW (11.6 - 14.8 %) 15.7 15.9 Neut % (Auto) (50 - 75 %) 81.3 76.6 Lymph % (Auto) (25 - 40 %) 8.6 11.6 [place] % (Auto) (3 - 14 %) 8.4 10.2 Eos % (Auto) (0 - 4 %) 1.6 1.3 Baso % (Auto) (0 - 2 %) 0.1 0.3 Plt Count, EDTA (150 - 400 K/uL) 210 218 PUBS MCHC (31 - 37 g/dL) 33 34 Urines Urine Color YELLOW Urine Appearance CLEAR Urine pH (5.0 - 8.0) 5.5 Ur Specific [place] (1.010 - 1.030) 1.010 Urine Protein (NEGATIVE) NEGATIVE Urine Ketones (NEGATIVE) NEGATIVE Urine Blood (NEGATIVE) 1+ Urine Nitrite (NEGATIVE) NEGATIVE Urine Bilirubin (NEGATIVE) NEGATIVE Urine Urobilinogen (0.2 - 1.0 EU/dL) 0.2 Ur Leukocyte Esterase (NEGATIVE) NEGATIVE Urine RBC (0 - 1 rbc/hpf) 1-3 Urine WBC (0 - 1 wbc/hpf) NONE SEEN Ur Epithelial Cells (0 - 5 EPI/hpf) 1-3 Urine Bacteria (NONE SEEN) NONE SEEN Urine Glucose (NEGATIVE) NEGATIVE Urine Comment CULT NOT INDICATED
[2016-10-02 10:29] VITALS: BP 132/65
[2016-10-02 14:51] VITALS: BP 107/60
[2016-10-02 19:15] VITALS: BP 126/64
[2016-10-02 22:47] VITALS: BP 118/55
[2016-10-03 02:11] VITALS: BP 100/40
[2016-10-03 05:48] VITALS: BP 127/52
--- NOTE | 2016-10-03 10:19 | Progress Note ---
Subjective General This is a 55-year-old female with a history of type 2 diabetes on insulin, who apparently stopped the majority of her medications a year ago when she had an H. pylori infection. She states that she stopped the medication because they are making her sick to her stomach. She has been intermittently taking her medication since that time. Her last dose of her seizure medications was 2016. The patient states that she stopped her insulin 5-6 days ago when she started having nausea and vomiting because she thought the nausea and vomiting was secondary to the insulin. In July the patient was seen in the emergency department for an infection in her groin and received ibuprofen at that time. She states that she finished the ibuprofen in July. She is not taking any NSAIDs during the month of August. However, she did take some aspirin last Wednesday. She denies any alcohol use, but does continue to smoke. She is supposed to be on Protonix, but has only been taking her oral medications intermittently over the past year. The patient started noticing diarrhea over the past week as well; however, did not check and see the color of her stool. She also has been complaining of mild abdominal pain, which she cannot communicate the location of in her abdomen. Doing much better, abdominal pain is there but is much better no nausea or vomiting tolrating food ok, had BM, no fever no chills, no cough no dyspnea no cp Review of system: GI: Improved abdominal pain negative for nausea or vomiting Constitutional: Negative for fever or chills Respiratory: Negative for cough and dyspnea or chest pain Physical Exam Vital Signs / I&Os Vital Signs Date Time Temp Pulse Resp B/P Pulse O2 O2 Flow FiO2 Ox Delivery Rate 10/03 0548 97.9 71 20 127/52 100 Room Air 10/03 0211 99.1 86 18 100/40 95 Room Air 10/02 2247 98.8 90 18 118/55 94 Room Air 10/02 2114 2.0 10/02 2030 Room Air 10/02 1915 98.6 91 16 126/64 95 Room Air 10/02 1451 97.7 81 16 107/60 95 Room Air 10/02 1029 99.1 95 16 132/65 96 Room Air I&O 10/03 0000 10/02 1600 10/02 0800 Intake Total 1925 60 2122 Output Total 1062 1411 1575 Balance 863 -1351 547 General Appearance No acute distress Lungs Clear to auscultation Neck Supple Cardiovascular Regular rate and rhythm, Normal S1 and S2, No murmurs, gallops, rubs Abdomen Normal bowel sounds, Soft, mild tenderness in surgical site Extremities Normal exam (1+ edema bilaterally) Skin No Rashes Psych/Mental Status Mental status normal Assessment and Plan Problem List 1. Duodenal ulcer Plan healing really well, will advance to full liquid diet plan to discharge in AM if tolerates 2. Diabetes Plan decrease lantus to 50unit bid 3. Liver cirrhosis Plan stable and improved, 4. Anemia Plan check Hg/Hct today
--- NOTE | 2016-10-03 11:20 | Progress Note ---
Subjective General 55-year-old female postop day #7, status post Billroth I for bleeding duodenal ulcer. Doing much better today than yesterday. No shortness of breath or chest pain. Passing flatus and small bowel movement this morning. Tolerating by mouth. Ambulatory Physical Exam Vital Signs / I&Os Vital Signs Date Time Temp Pulse Resp B/P Pulse O2 O2 Flow FiO2 Ox Delivery Rate 10/03 0548 97.9 71 20 127/52 100 Room Air 10/03 0211 99.1 86 18 100/40 95 Room Air 10/02 2247 98.8 90 18 118/55 94 Room Air 10/02 2114 2.0 10/02 2030 Room Air 10/02 1915 98.6 91 16 126/64 95 Room Air 10/02 1451 97.7 81 16 107/60 95 Room Air I&O 10/02 0800 10/02 1600 10/03 0000 Intake Total 2122 60 1925 Output Total 1575 1411 1062 Balance 547 -1351 863 General Appearance Alert, Oriented X3, Cooperative, No acute distress HEENT Moist mucous membranes Lungs Clear to auscultation Neck No JVD Cardiovascular Regular rate and rhythm Abdomen Normal bowel sounds, incision clean, or cellulitis. Distended. Nontympanitic Extremities No cyanosis Skin warm and dry Neurological Strength 5/5 x4 ext's Psych/Mental Status Mental status normal LAB Results Laboratory Tests 10/03 1042 Hematology Hgb (12.0 - 16.0 gm/dL) 9.8 Hct (36.0 - 46.0 %) 29.6 Assessment and Plan Problem List 1. GI bleed Plan Stable upper GI bleed. 2. History of Billroth I operation Plan Stable postop. Discharge in a.m. Increase diet today. DC TPN.
[2016-10-03 11:29] VITALS: BP 123/60
[2016-10-03 14:22] VITALS: BP 109/44
[2016-10-03 18:35] VITALS: BP 102/42
[2016-10-03 21:42] VITALS: BP 132/52
[2016-10-04 01:54] VITALS: BP 87/65
[2016-10-04 02:42] VITALS: BP 102/52
[2016-10-04 06:16] VITALS: BP 102/61
--- NOTE | 2016-10-04 09:53 | Progress Note ---
Subjective General 55-year-old female postop day 8 status post Billroth I for bleeding duodenal ulcer. Patient is stable. Tolerating by mouth, and ambulatory. Passing flatus and having bowel movements. Minimal abdominal complaints. Physical Exam Vital Signs / I&Os Vital Signs Date Time Temp Pulse Resp B/P Pulse O2 O2 Flow FiO2 Ox Delivery Rate 10/04 0616 98.8 94 20 102/61 97 Room Air 10/04 0242 102/52 10/04 0154 98.4 85 18 87/65 96 Room Air 10/03 2142 97.7 62 16 132/52 98 Room Air 10/03 1856 97.9 10/03 1835 76 16 102/42 96 Room Air 10/03 1422 98.4 82 16 109/44 99 Room Air 10/03 1129 98.4 74 20 123/60 100 Room Air I&O 10/03 0800 10/03 1600 10/04 0000 Intake Total 1469 440 943 Output Total 1872 730 0790 Balance 194 -110 -207 General Appearance Alert, Oriented X3, Cooperative, No acute distress HEENT PERRLA, EOMI, Moist mucous membranes Lungs Clear to auscultation Neck Supple, No JVD Cardiovascular Regular rate and rhythm Abdomen Normal bowel sounds, Soft, incision site is clean Extremities No cyanosis Skin skin warm and dry Neurological No lateralizing signs Psych/Mental Status Mental status normal LAB Results Laboratory Tests 10/03 10/04 1042 0320 Chemistry Plasma Sodium (136 - 145 mmol/L) 140 Plasma Potassium (3.5 - 5.1 mmol/L) 4.0 Plasma Chloride (98 - 107 mmol/L) 105 CO2 (Enzymatic) (21 - 32 mmol/L) 25 BUN (7 - 18 mg/dL) 12 Creatinine (0.6 - 1.3 mg/dL) 0.7 Est GFR ( Amer) (mL/min) >60 Est GFR (Non-Af Amer) (mL/min) >60 Glucose (70 - 110 mg/dL) 81 Plasma Calcium (8.5 - 10.1 mg/dL) 8.5 Hematology WBC (4.5 - 11.5 K/uL) 15.4 RBC (4.00 - 5.20 M/uL) 3.71 Hgb (12.0 - 16.0 gm/dL) 9.8 10.6 Hct (36.0 - 46.0 %) 29.6 32.1 MCV (80 - 100 fL) 87 MCH (26 - 34 pg) 29 RDW (11.6 - 14.8 %) 15.9 Neut % (Auto) (50 - 75 %) 81.7 Lymph % (Auto) (25 - 40 %) 8.8 [place] % (Auto) (3 - 14 %) 8.0 Eos % (Auto) (0 - 4 %) 1.1 Baso % (Auto) (0 - 2 %) 0.4 Plt Count, EDTA (150 - 400 K/uL) 259 PUBS MCHC (31 - 37 g/dL) 33 Toxicology Phenytoin (10.0 - 20.0 ug/mL) 9.0 Assessment and Plan Problem List 1. GI bleed Plan Stable GI bleed, hematocrit 32 2. History of Billroth I operation Plan Stable postop. DC as per hospitalist. Recommend patient stay on a full liquid diet until seen by me. Patient is to make an appointment to see me this week. Followup with primary care provider for CBC, this week. Continue iron sulfate liquid, and Protonix. Wound care instructions given.
--- NOTE | 2016-10-04 13:25 | DISCHARGE SUMMARY ---
ADMIT DATE: 09/18/2016 DISCHARGE DATE: 10/04/2016 DISCHARGE DIAGNOSES: 1. Duodenal ulcer 2. Diabetes mellitus 3. Liver cirrhosis 4. Anemia BRIEF HISTORY: This is a 55-year-old white female who was admitted on 2016. The patient presented to the emergency with a change in mental status. She also complained of some sickness and nausea. The patient also stopped insulin due to nausea, and then developed more nausea and vomiting. Was taking ibuprofen and some aspirin, but no alcohol use and developed mild abdominal pain. She also stopped taking Protonix. The patient also developed some diarrhea. In the emergency, the patient was found to have severe anemia and had to be transfused. HOSPITAL COURSE: The patient was admitted for severe anemia and GI bleed and was transfused 3 units of blood. The patient later on went to the EGD and was found to have an ulcer that was nonbleeding. The patient was getting ready to be discharged but developed another episode of GI bleed, with anemia and blood loss, so the patient had to be taken to OR and had to go through surgery, which was laparotomy, gastroduodenostomy with Billroth I stapled EEA anastomosis. After that, the patient gradually improved during the hospital course and become more stable. Finally, we were able to start feeding her a clear liquid diet, and we advanced her to a full liquid diet, which she has doing really well on. No nausea, no vomiting, had a bowel movement yesterday, which was brown-colored stool. No abdominal pain, but distention. PHYSICAL EXAMINATION: VITAL SIGNS: Temperature is 98.8, pulse is 94, respirations 20, blood pressure 102/61, and pulse oximetry 97% on room air. LUNGS: Clear to auscultation. No rhonchi or wheezing. HEART: Regular S1, S2. No murmur. No S3. ABDOMEN: Soft, nontender, but distended. Bowel sounds are positive. EXTREMITIES: No edema. LAB/IMAGING: Blood tests: White blood count is 15.4, hemoglobin 10.6, higher than yesterday, and platelet count is 259. Sodium is 140, potassium is 4, chloride is 105, CO2 is 25, BUN is 12, creatinine 0.7, calcium was 8.5. The patient's blood sugar had started to drop to the 50s and 60s since yesterday, and I adjusted long-acting insulin to 50 twice a day, and we had to hold one of the doses because blood sugar dropped down to 50, but she is going to continue insulin long-acting 50 units twice a day as an outpatient, since her diet will not be the same as in the hospital. DISCHARGE MEDICATIONS/INSTRUCTIONS: Discharge medications will be: Lantus 50 units twice a day. Glimepiride 2 mg at bedtime. Lisinopril 10 mg 1/2 tablet daily. Lovastatin 40 mg daily. Metformin 1000 mg twice a day. Phenytoin 100 mg, 2 tablets in the morning and 3 tablets in the afternoon. Protonix 40 mg twice a day. The patient will follow up with her primary care, Dr. Mendoza, as an outpatient within the week. Also, she will follow up with the [facility] surgeon, Dr. Maya or Dr. Zuñiga, per their instruction.
== END 2016-10-04 13:00 | disposition home or self-care (01) | DRG 326 ==
LOC: ED SRH 23:03 → TRANS SRH 09-18 01:07 → CC SRH 09-18 01:07
PROVIDERS: Specialist; ADMIT Family Medicine
PROC: 0DJ08ZZ Inspection of Upper Intestinal Tract, Via Natural or Artificial Opening Endoscopic (ICD-10-PCS; 2016-09-18)
PROC: 02HV33Z Insertion of Infusion Device into Superior Vena Cava, Percutaneous Approach (ICD-10-PCS; 2016-09-18)
PROC: 30233N1 Transfusion of Nonautologous Red Blood Cells into Peripheral Vein, Percutaneous Approach (ICD-10-PCS; 2016-09-18)
PROC: 06HN33Z Insertion of Infusion Device into Left Femoral Vein, Percutaneous Approach (ICD-10-PCS; 2016-09-18)
PROC: 3E0G8TZ Introduction of Destructive Agent into Upper GI, Via Natural or Artificial Opening Endoscopic (ICD-10-PCS; 2016-09-23)
PROC: 30233N1 Transfusion of Nonautologous Red Blood Cells into Peripheral Vein, Percutaneous Approach (ICD-10-PCS; 2016-09-23)
PROC: 30233K1 Transfusion of Nonautologous Frozen Plasma into Peripheral Vein, Percutaneous Approach (ICD-10-PCS; 2016-09-23)
PROC: 30233N1 Transfusion of Nonautologous Red Blood Cells into Peripheral Vein, Percutaneous Approach (ICD-10-PCS; 2016-09-23)
PROC: 30233K1 Transfusion of Nonautologous Frozen Plasma into Peripheral Vein, Percutaneous Approach (ICD-10-PCS; 2016-09-25)
PROC: 3E0436Z Introduction of Nutritional Substance into Central Vein, Percutaneous Approach (ICD-10-PCS; 2016-09-26)
PROC: 30233N1 Transfusion of Nonautologous Red Blood Cells into Peripheral Vein, Percutaneous Approach (ICD-10-PCS; 2016-09-26)
PROC: 0DB60ZZ Excision of Stomach, Open Approach (ICD-10-PCS; principal; 2016-09-26 09:30)
PROC: 0DT70ZZ Resection of Stomach, Pylorus, Open Approach (ICD-10-PCS; principal; 2016-09-26 09:30)
PROC: 3E0M05Z Introduction of Adhesion Barrier into Peritoneal Cavity, Open Approach (ICD-10-PCS; principal; 2016-09-26 09:30)
PROC: 0D160Z9 Bypass Stomach to Duodenum, Open Approach (ICD-10-PCS; principal; 2016-09-26 09:30)
PROC: 03HY32Z Insertion of Monitoring Device into Upper Artery, Percutaneous Approach (ICD-10-PCS; principal; 2016-09-26 09:30)
DX: K26.4 Chronic or unspecified duodenal ulcer with hemorrhage (principal); E13.10 Other specified diabetes mellitus with ketoacidosis without coma; D62 Acute posthemorrhagic anemia; N17.9 Acute kidney failure, unspecified; R18.8 Other ascites; K76.6 Portal hypertension; Z79.4 Long term (current) use of insulin; T38.3X6A Underdosing of insulin and oral hypoglycemic [antidiabetic] drugs, initial encounter; T47.1X6A Underdosing of other antacids and anti-gastric-secretion drugs, initial encounter; Z91.128 Patient's intentional underdosing of medication regimen for other reason; E86.1 Hypovolemia; R74.8 Abnormal levels of other serum enzymes; K74.60 Unspecified cirrhosis of liver; E83.42 Hypomagnesemia; I10 Essential (primary) hypertension; E78.00 Pure hypercholesterolemia, unspecified; B37.3 Candidiasis of vulva and vagina; G40.909 Epilepsy, unspecified, not intractable, without status epilepticus; F17.210 Nicotine dependence, cigarettes, uncomplicated